=== PATIENT | male | born 1955 | race Caucasian/White ===

== ENCOUNTER 2018-08-05 14:35 | Emergency (ER) | payer OTHER ==
[~2018-08-05] VITALS: Ht 175.3 cm; Wt 56.8 kg
[2018-08-05 16:17] LABS: BASO # 0.1 10^3/uL (0.0-0.2); BASO % 1.1 % (0.0-1.0); EOS # 0.2 10^3/uL (0.0-0.50); HEMATOCRIT 39.2 % (42.0-52.0); HEMOGLOBIN 12.5 g/dl (13.5-17.5); LYMPH # 1.3 10^3/uL (1.5-4.5); LYMPH % 16.5 % (24.0-44.0); MEAN CORPUSCULAR HEMOGLOBIN 29.8 pg (27.0-33.0); MEAN CORPUSCULAR HGB CONC 31.9 g/dl (32.0-36.5); MEAN CORPUSCULAR VOLUME 93.3 fl (80.0-96.0); MONO # 0.7 10^3/uL (0.0-0.8); MONO % 9.4 % (0.0-5.0); NEUTROPHILS # 5.5 10^3/uL (1.8-7.7); NEUTROPHILS % 69.7 % (36.0-66.0); PLATELET COUNT, AUTOMATED 241 10^3/uL (150-450); WHITE BLOOD COUNT 7.9 10^3/uL (4.0-10.0)
[2018-08-05 16:29] LABS: INR 0.96; PROTHROMBIN TIME 12.9 SECONDS (12.1-14.4)
[2018-08-05 16:30] LABS: PARTIAL THROMBOPLASTIN TIME 28.6 SECONDS (25.4-37.6)
[2018-08-05 16:51] LABS: ALBUMIN 3.7 GM/DL (3.2-5.2); ALT/SGPT 21 U/L (12-78); BILIRUBIN,DIRECT 0.1 MG/DL (0.0-0.2); BILIRUBIN,TOTAL 0.4 MG/DL (0.2-1.0); BLOOD UREA NITROGEN 26 MG/DL (7-18); CALCIUM LEVEL 8.7 MG/DL (8.8-10.2); CARBON DIOXIDE LEVEL 26 MEQ/L (21-32); CHLORIDE LEVEL 110 MEQ/L (98-107); GLOMERULAR FILTRATION RATE > 60.0 (>49); GLUCOSE, FASTING 80 MG/DL (70-100); MAGNESIUM LEVEL 2.2 MG/DL (1.8-2.4); POTASSIUM SERUM 4.5 MEQ/L (3.5-5.1); SODIUM LEVEL 142 MEQ/L (136-145); TOTAL PROTEIN 6.9 GM/DL (6.4-8.2)
[2018-08-05 17:42] LABS: FREE T4 1.02 NG/DL (0.76-1.46)
[2018-08-05 18:21] VITALS: BP 110/69
--- NOTE | 2018-08-06 06:35 | ECGEPIP ---
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
== END 2018-08-05 18:24 | disposition home or self-care (01) ==
LOC: M ED 14:35
DX: I49.3 Ventricular premature depolarization (principal); R21 Rash and other nonspecific skin eruption

== ENCOUNTER → 2018-09-01 | Outpatient (REF) | payer OTHER ==
[2018-09-02 12:14] LABS: GAMMA GLUTAMYLTRANSPEPTIDASE 37 U/L (15-85)
[2018-09-03 12:05] LABS: HEPATITIS B SURFACE ANTIBODY NEGATIVE (POSITIVE)
[2018-09-03 12:16] LABS: HEPATITIS B SURFACE ANTIGEN NEGATIVE (NEGATIVE)
== END ==
LOC: M SFHCCLAY 15:35
PROVIDERS: ATTEND Family Medicine
DX: K74.60 Unspecified cirrhosis of liver (principal)

== ENCOUNTER → 2019-09-12 | Outpatient (CLI) | payer OTHER, MEDICAID ==
[2019-09-12 19:38] LABS: BASO # 0.1 10^3/uL (0.0-0.2); EOS # 0.2 10^3/uL (0.0-0.5); EOS % 2.4 % (0.0-3.0); HEMATOCRIT 41.1 % (42.0-52.0); LYMPH # 1.6 10^3/uL (1.5-5.0); LYMPH % 26.2 % (24.0-44.0); MEAN CORPUSCULAR HEMOGLOBIN 30.1 pg (27.0-33.0); MEAN CORPUSCULAR HGB CONC 31.6 g/dl (32.0-36.5); MEAN CORPUSCULAR VOLUME 95.1 fl (80.0-96.0); MONO # 0.8 10^3/uL (0.0-0.8); MONO % 12.4 % (0.0-5.0); NEUTROPHILS # 3.5 10^3/uL (1.5-8.5); NEUTROPHILS % 56.9 % (36.0-66.0); PLATELET COUNT, AUTOMATED 246 10^3/uL (150-450); RED BLOOD COUNT 4.32 10^6/uL (4.30-6.10); WHITE BLOOD COUNT 6.2 10^3/uL (4.0-10.0)
[2019-09-12 20:12] LABS: ALBUMIN 3.8 GM/DL (3.2-5.2); ALT/SGPT 27 U/L (12-78); BILIRUBIN,TOTAL 0.4 MG/DL (0.2-1.0); BLOOD UREA NITROGEN 26 MG/DL (7-18); CALCIUM LEVEL 9.2 MG/DL (8.8-10.2); CARBON DIOXIDE LEVEL 27 MEQ/L (21-32); CHLORIDE LEVEL 107 MEQ/L (98-107); CREATININE FOR GFR 1.14 MG/DL (0.70-1.30); GLOMERULAR FILTRATION RATE > 60.0 (>49); GLUCOSE, FASTING 69 MG/DL (70-100); POTASSIUM SERUM 4.3 MEQ/L (3.5-5.1); SODIUM LEVEL 142 MEQ/L (136-145); TOTAL PROTEIN 7.3 GM/DL (6.4-8.2)
[2019-09-12 20:13] LABS: RHEUMATOID FACTOR QUANT < 10.0 IU/ML (<15.0)
[2019-09-14 14:06] LABS: ANTINUCLEAR ANTIBODIES DIRECT Negative (Negative)
== END ==
LOC: M LAB 16:44
PROVIDERS: ATTEND Internal Medicine Cardiovascular Disease
DX: I31.3 Pericardial effusion (noninflammatory) (principal)

== ENCOUNTER → 2020-01-12 | Outpatient (CLI) | payer OTHER ==
--- NOTE | 2020-02-08 10:02 | REP ---
NONCONTRAST CHEST CT CLINICAL: Follow-up abnormal lung findings. COMPARISON: 09/14/2019. FINDINGS: Advanced COPD/emphysematous changes with scattered scarring and bronchiectasis is again appreciated. Findings include chronic presumed scarring at the bilateral apices with linear band-like elements of soft tissue having central calcifications and surrounding spiculated fibrosis. There is a new 14 mm soft tissue density lesion along the anterior right upper lobe with spiculated margins (Image 22), which represents an obvious change from prior examination. No further new areas of consolidation, nodule, or mass lesion are appreciated. No effusion or pneumothorax. Mediastinal and hilar adenopathy including lymph nodes measuring up to approximately 12 mm short axis diameter are similar to prior examination. Further evaluation of the mediastinum demonstrates atherosclerotic changes to the thoracic aorta and coronary arteries along with small stable pericardial effusion. No cardiomegaly. Musculoskeletal structures demonstrate age-related changes without acute osseous abnormality. IMPRESSION: * New 14 mm soft tissue lesion along the anterior right upper lobe with spiculated margins. PET CT is recommended for further investigation, as well as possible biopsy. * Underlying advanced chronic emphysematous changes with bronchiectasis and scarring including band-like biapical scarring is again noted and is relatively stable. MTDD
== END ==
LOC: M RAD 14:54
PROVIDERS: ATTEND Internal Medicine Pulmonary Disease
DX: R91.8 Other nonspecific abnormal finding of lung field (principal)

== ENCOUNTER → 2020-02-07 | Outpatient (CLI) | payer OTHER ==
--- NOTE | 2020-02-14 15:10 | REP ---
PET CT HISTORY: Abnormal lung field findings. Solitary pulmonary nodule. COMPARISON: Chest CT study 01/12/2020 showed a new 14-mm nodular density in the anterior aspect of the right upper lobe. Chest CT study is also reviewed from 09/14/2019. TECHNIQUE: 49 minutes following the intravenous injection of an 8.18 mCi dose of F18 fluorodeoxyglucose (FDG), three-dimensional PET CT imaging is acquired from the skull base to the proximal thighs. PET CT FINDINGS: Head and neck soft tissues are unremarkable. There is no hypermetabolic focus within the chest. The recently identified right upper lobe nodular opacity appears smaller than on the recent prior chest CT. Maximum standard uptake value within this is 1.75. There is equivocal nodule uptake in the right hilus without evidence of adenopathy. There is a new tiny nodular opacity with some adjacent inflammatory change in the right lower lobe, maximum standard uptake value 1.15, again not hypermetabolic. The band-like area of pleural parenchymal fibrosis in the right apex does not show hypermetabolic uptake. In the abdomen and pelvis, normal hepatic, splenic, gastrointestinal, and genitourinary FDG accumulation is seen. A moderate pericardial effusion is noted incidentally without associated hypermetabolic uptake. No abnormal hypermetabolic uptake is seen in the abdomen or pelvis. IMPRESSION: Advanced chronic obstructive pulmonary disease (COPD). No hypermetabolic uptake is seen in any focus within the chest. The recently identified right upper lobe focus is a little flatter in morphology and less nodular. There is a small focus of inflammatory uptake in the right lower lobe today. Not hypermetabolic. There is a moderate pericardial effusion again noted unchanged. No suspicious hypermetabolic uptake. MTDD
== END ==
LOC: M PLARAD 08:21
PROVIDERS: ATTEND Internal Medicine Pulmonary Disease
DX: R91.1 Solitary pulmonary nodule (principal); J44.9 Chronic obstructive pulmonary disease, unspecified
CPT/HCPCS: 78815; A9552

== ENCOUNTER → 2020-05-17 | Outpatient (CLI) | payer MEDICARE, OTHER ==
--- NOTE | 2020-05-18 07:52 | REP ---
INDICATION: SOLITARY PULMONARY NODULE COMPARISON: 01/12/2020 TECHNIQUE: Axial noncontrast images from the thoracic inlet to the upper abdomen with coronal and sagittal reformations. This CT examination was performed using the following dose reduction techniques: Automated exposure control, adjustment of mA and/or kv according to the patient's size, and use of iterative reconstruction technique. FINDINGS: Advanced COPD/emphysematous changes with biapical and scattered scarring again noted. The previously identified 14 mm nodule with surrounding spiculation has improved/decreased in size and now demonstrates small residual area of stellate scarring. No new consolidation, suspicious nodule or mass lesion appreciated. No pleural effusion. No pneumothorax. Further evaluation of the mediastinum demonstrates stable atherosclerotic changes to the thoracic aorta and coronary arteries without cardiomegaly. Small stable pericardial effusion again noted along the dependent portion of the mediastinum. No significant adenopathy appreciated. Thyroid gland is relatively normal. Surrounding musculoskeletal structures demonstrate stable degenerative changes. IMPRESSION: 1. Previously identified nodule has regressed/near completely resolved with only small area of residual stellate scarring in its place. 2. Chronic stable advanced COPD/emphysematous changes with scattered scarring. 3. No new acute mediastinal or pleuroparenchymal process appreciated. <Electronically signed by Greg Peace > 05/18/20 [id number]
== END ==
LOC: M RAD 17:41
PROVIDERS: ATTEND Internal Medicine Pulmonary Disease
DX: R91.1 Solitary pulmonary nodule (principal); J44.9 Chronic obstructive pulmonary disease, unspecified

== ENCOUNTER → 2020-07-11 | Outpatient (CLI) | payer MEDICARE, OTHER ==
[2020-07-11 12:06] LABS: PROTHROMBIN TIME 13.4 SECONDS (12.5-14.3)
[2020-07-11 12:26] LABS: FERRITIN 56 NG/ML (26-388); IRON (FE) 84 UG/DL (65-175); PERCENT SATURATION 27.9 % (19.7-50.0); TOTAL IRON BINDING CAPACITY 301 UG/DL (250-450)
[2020-07-11 12:45] LABS: HEPATITIS B SURFACE ANTIGEN NEGATIVE (NEGATIVE)
[2020-07-11 13:13] LABS: HEPATITIS C VIRUS ABY INDEX < 0.0 INDEX (<0.8)
[2020-07-11 13:15] LABS: HEPATITIS A ANTIBODY IGM NEGATIVE (NEGATIVE)
== END ==
LOC: M LAB 09:12
PROVIDERS: ATTEND Internal Medicine Gastroenterology
DX: K76.9 Liver disease, unspecified (principal)

== ENCOUNTER 2020-12-02 11:08 | Inpatient (IN) | payer MEDICARE, OTHER ==
[~2020-12-02] VITALS: Ht 175.3 cm; Wt 50.6 kg
[2020-12-02] MEDS ORDERED: ASPI81CH33 PO (11:19)
[2020-12-02] MEDS ORDERED: BREO1INH3 PO (11:19)
[2020-12-02] MEDS ORDERED: HYDR12.55 PO (11:19)
[2020-12-02] MEDS ORDERED: ALBU8.5H INH (11:19)
--- NOTE | 2020-12-02 13:02 | REP ---
INDICATION: DYSPNEA/COUGH. COMPARISON: Comparison chest x-ray May 19, 2012. TECHNIQUE: Portable upright AP chest radiograph. FINDINGS: Lungs overall are hyperinflated. There is a new finding of a pneumothorax on the right in a approximately 10-15%. Some of the pneumothorax is in the sub pulmonic configuration. There are emphysematous changes in the upper lobes and there is some linear fibrosis in the upper lobes bilaterally. The heart is not enlarged. There is slight shift of the mediastinum to the left. A dextroconvex curve is noted in the thoracic spine.. IMPRESSION: Small right-sided pneumothorax. Slight shift of the mediastinum to the left. Evidence of COPD.. Critical Findings: Small right-sided pneumothorax The critical information above was relayed directly by me by telephone to RHODA SAHNI on 12/02/2020 at 12:53 pm with readback verification. <Electronically signed by Elian Ac > 12/02/20 [id number]
[2020-12-02 13:16] LABS: BASO # 0.1 10^3/uL (0.0-0.2); EOS # 0.3 10^3/uL (0.0-0.5); EOS % 2.5 % (0.0-3.0); HEMATOCRIT 44.8 % (42.0-52.0); HEMOGLOBIN 14.5 g/dl (13.5-17.5); LYMPH # 1.5 10^3/uL (1.5-5.0); LYMPH % 15.2 % (24.0-44.0); MEAN CORPUSCULAR HEMOGLOBIN 30.9 pg (27.0-33.0); MEAN CORPUSCULAR HGB CONC 32.4 g/dl (32.0-36.5); MEAN CORPUSCULAR VOLUME 95.5 fl (80.0-96.0); MONO % 9.4 % (2.0-8.0); NEUTROPHILS # 7.2 10^3/uL (1.5-8.5); NEUTROPHILS % 71.2 % (36.0-66.0); PLATELET COUNT, AUTOMATED 392 10^3/uL (150-450); RED BLOOD COUNT 4.69 10^6/uL (4.30-6.10); WHITE BLOOD COUNT 10.1 10^3/uL (4.0-10.0)
[2020-12-02 13:55] LABS: ALBUMIN 3.8 GM/DL (3.2-5.2); ALT/SGPT 25 U/L (12-78); BILIRUBIN,DIRECT 0.1 MG/DL (0.0-0.2); BILIRUBIN,TOTAL 0.6 MG/DL (0.2-1.0); BLOOD UREA NITROGEN 36 MG/DL (7-18); CALCIUM LEVEL 9.7 MG/DL (8.8-10.2); CARBON DIOXIDE LEVEL 27 MEQ/L (21-32); CHLORIDE LEVEL 104 MEQ/L (98-107); CK-MB VALUE MASS 3.4 NG/ML (<3.6); CPK CREATINE PHOSPHOKINASE 81 U/L (39-308); CREATININE FOR GFR 1.27 MG/DL (0.70-1.30); GLOMERULAR FILTRATION RATE > 60.0 (>49); GLUCOSE, FASTING 96 MG/DL (70-100); POTASSIUM SERUM 5.4 MEQ/L (3.5-5.1); SODIUM LEVEL 138 MEQ/L (136-145); TOTAL PROTEIN 7.7 GM/DL (6.4-8.2); TROPONIN I < 0.02 NG/ML (< 0.10)
[2020-12-02] MEDS ORDERED: ARNU1INH3 INH (14:31)
[2020-12-02] MEDS ORDERED: STIO1AER INH (14:31)
[2020-12-02] MEDS ORDERED: ACETAMINOPHEN TAB 650MG DOSE (2X325MG) PO PRN (15:15)
--- NOTE | 2020-12-02 15:16 | HPEPDOC ---
General Date of Admission 12/02/20 Date of Service: Dec 02, 2020 Chief Complaint The patient is a 65-year-old male admitted with a reason for visit of Weakness/Short Of Breath. Source: Patient Exam Limitations: No limitations History of Present Illness Patient is 65 years old male with past medical history of COPD, long history of smoking quit 34 years ago presented to hospital with increased shortness of breath. Patient stated that for the past 2 weeks he has been having increased shortness of breath but denied any chest pain, palpitations fever or chills. He stated that shortness of breath became progressively worse especially when he walk. In ER patient was found to have white blood count of 10.1, potassium 5.4. Chest x-ray showed Small right-sided pneumothorax. Slight shift of the mediastinum to the left.. Dr. Laura consulted patient and he recommended high flow oxygen and admit for observation Home Medications Scheduled Aspirin (Aspirin) 81 Mg Tab.chew, 81 MG PO DAILY, (Reported) Fluticasone/Vilanterol (Breo Ellipta 200-25 Mcg INH) 1 Each Blst.w.dev, 1 PUFF INH DAILY, (Reported) Hydrochlorothiazide (Hydrochlorothiazide) 25 Mg Tablet, 12.5 MG PO DAILY, (Reported) Scheduled PRN Albuterol Sulfate (Albuterol Sulfate Hfa) 8.5 Gm Hfa.aer.ad, 2 PUFFS INH for SHORTNESS OF BREATH, (Reported) Allergies Coded Allergies: No Known Drug Allergies (Verified Allergy, Unknown, 08/05/18) Past Medical History Medical History COPD, hypertension Family History I personally reviewed family history and found not pertinent Social History * Smoker: former Smoker Alcohol: Denies Drugs: denies A-FIB/CHADSVASC A-FIB History Current/History of A-Fib/PAF?: No Current PO Anticoag Therapy: No Review of Systems Constitutional: Denies: Chills, Fever Eyes: Denies: Pain ENT: Denies: Head Aches Skin: Denies: Rash Pulmonary: Reports: Dyspnea Cardiovascular: Denies: Chest Pain Gastrointestinal: Denies: Nausea Genitourinary: Denies: Dysuria Hematologic: Denies: Bruising Endocrine: Denies: Polydipsia Musculoskeletal: Denies: Neck Pain Neurological: Denies: Weakness Psych: Reports: Mood Normal Physical Examination General Exam: Positive: Alert, Cooperative Eye Exam: Positive: PERRLA ENT Exam: Positive: Atraumatic Neck Exam: Positive: Supple; Negative: JVD Chest Exam: Positive: Diminished Heart Exam: Positive: Rate Normal Telemetry: Positive: No significant arrhythmia Abdomen Exam: Positive: Normal bowel sounds Extremity Exam: Negative: Clubbing Skin Exam: Positive: Nl turgor and temperature Neuro Exam: Positive: Normal Gait Psych Exam: Positive: Mental status NL Vital Signs Vital Signs Date Time Temp Pulse Resp B/P (MAP) Pulse Ox O2 Delivery O2 Flow Rate FiO2 12/02/20 14:15 88 18 104/73 (83) 100 Non-Rebreather 15.0 12/02/20 11:11 97.3 Laboratory Data Labs 24H Laboratory Tests 2 12/02/20 12:58: Immature Granulocyte % (Auto) 0.7, Neutrophils (%) (Auto) 71.2H, Lymphocytes (%) (Auto) 15.2L, Monocytes (%) (Auto) 9.4H, Eosinophils (%) (Auto) 2.5, Basophils (%) (Auto) 1.0, Neutrophils # (Auto) 7.2, Lymphocytes # (Auto) 1.5, Monocytes # (Auto) 1.0H, Eosinophils # (Auto) 0.3, Basophils # (Auto) 0.1, Nucleated Red Blood Cells % (auto) 0.0, Anion Gap 7L, Glomerular Filtration Rate > 60.0, Calcium Level 9.7, Total Bilirubin 0.6, Direct Bilirubin 0.1, Aspartate Amino Transf (AST/SGOT) 24, Alanine Aminotransferase (ALT/SGPT) 25, Alkaline Phosphatase 118H, Total Creatine Kinase 81, Creatine Kinase MB 3.4, Creatine Kinase MB Relative Index 4.20H, Troponin I < 0.02, Total Protein 7.7, Albumin 3.8, Albumin/Globulin Ratio 1.0 12/02/20 13:14: POC Troponin I (Misc) 0.02 12/02/20 13:31: POC pH (Misc Panel) 7.424, POC Base Excess (Misc Panel) 2.0, POC Saturated Percent O2 (Misc) 100H, POC pO2 (Misc Panel) 334.0H, POC pCO2 (Misc Panel) 39.8, POC HCO3 (Misc Panel) 26.1H, POC Total CO2 (Misc Panel) 27.0 12/02/20 14:36: CBC/BMP Laboratory Tests 12/02/20 12:58 Assessment/Plan Patient is 65 years old male with past medical history of COPD, long history of smoking quit 34 years ago presented to hospital with increased shortness of breath. Patient stated that for the past 2 weeks he has been having increased shortness of breath but denied any chest pain, palpitations fever or chills. He stated that shortness of breath became progressively worse especially when he walk. In ER patient was found to have white blood count of 10.1, potassium 5.4. Chest x-ray showed Small right-sided pneumothorax. Slight shift of the mediastinum to the left.. Dr. Laura consulted patient and he recommended high flow oxygen and admit for observation Problems (1) Spontaneous pneumothorax Status: Acute Problem Text: Most likely secondary to his COPD Dr. Laura recommended to continue high flow oxygen and repeat chest x-ray tonight and in the morning (2) COPD (chronic obstructive pulmonary disease) Problem Text: Not in acute exacerbation Continue inhalers (3) Hyperkalemia Status: Acute Problem Text: Insulin 10 units IV with D50 Plan / VTE VTE Prophylaxis Ordered?: No VTE Exclusion Mechanical Proph: Low Risk for VTE JOSE ARMANDO SHAW DO Dec 02, 2020 15:16
[2020-12-02] MEDS ORDERED: BREO1INH3 INH (15:19)
[2020-12-02] MEDS ORDERED: HYDR-3490 PO (15:19)
[2020-12-02] MEDS ORDERED: DEXTROSE 50% 50 ML SYRINGE IV STA (15:21)
[2020-12-02] MEDS ORDERED: HumuLIN R (REGULAR) INSULIN (NovoLIN R) **100U/ML** PER UNIT IV STA (15:21)
[2020-12-02 15:45] LABS: RSV AMPLIFICATION NEGATIVE (NEGATIVE)
[2020-12-02] MEDS ORDERED: SODIUM CHLORIDE 0.9% 1000ML IV SCH (16:00)
[2020-12-02 16:51] VITALS: BP 129/79
--- NOTE | 2020-12-02 16:52 | CCN ---
CRITICAL CARE NOTE DATE: 12/02/2020 SUBJECTIVE: I was called to the emergency department to evaluate this 65-year-old male in light of pneumothorax. The patient presented with weakness and progressive dyspnea over the past few days. He recalls no recent falls or trauma. He is not experiencing chest pain at this point. He has recently suffered severe trauma with multiple bone fractures in August of this year, having been run over by a tractor. This resulted in a prolonged hospital stay at [facility] and even more prolonged recovery with rehabilitation. He has only just recently been able to participate in his usual activities of daily living. His past medical history includes advanced obstructive sleep airways disease secondary to 100 pack year cigarette smoking. He has had FEV-1 of 1.87 liters with severe diffusion impairment. He also suffers from cirrhosis, etiology unclear and there and was a history of atrial fibrillation, pericardial and pleural effusions requiring drainage in the past. OBJECTIVE: Vital signs: At bedside he is ill-appearing and cachectic. His temperature is 97.3, pulse rate 107, respirations 18, blood pressure 106/69. HEENT: His oral and nasal mucosa are pink. Neck: Supple there is no obvious jugular venous distention, No tracheal deviation, no adenopathy. Heart: Heart sounds are regular, distant. No appreciable murmurs, No clicks, no rubs. Breath sounds are diminished globally and the expiratory phase is prolonged. The diminution is greater over the right hemithorax than the left. There is hyperresonance to percussion bilaterally. Diaphragm motion is difficult to assess. Abdomen: Soft, sunken with intact bowel sounds. Extremities: Show muscle wasting. DIAGNOSTIC STUDIES: Chest x-ray shows hyperinflation and a small the loculated right pleural effusion. His white cell count is 10.1. Hemoglobin is 14.5, hematocrit 44.8, platelet count 392,000. Differential: White cell count shows 71.2% neutrophils. Electrolytes: Sodium 138, potassium 5.4, chloride 104, CO2 27, BUN 36, creatinine 1.27. Glucose 96. His bilirubin is 0.6, AST 24, ALT 25, alk phos 118. His albumin is 3.8. Arterial blood gases showed a pH of 7.42, pCO2 of 39, pO2 of 100 on a nonrebreather mask. Additional workup is underway for his presenting complaints by the ER physicians. ASSESSMENT AND PLAN: The primary problem requiring critical attention is right pneumothorax, likely a spontaneous event given advanced emphysema on a previous CT. Oxygen administration will enhance reabsorption of the pleural air and I would recommend repeating a chest x-ray at 6 p.m. and in the morning. Advanced obstructive airways disease. The patient had been taking longacting beta agonists, longacting anticholinergic and an inhaled steroid. I would recommend continuing them on admission. I will follow up x-rays and if the pleural air increases, thoracostomy will be necessary. I have reviewed the case with the emergency department attending who is planning to complete workup and contact the hospitalist for admission. 67 minutes was spent in the provision of bedside critical care and coordination and exclusive of any time for the performance of procedures.
--- NOTE | 2020-12-02 18:58 | REPVR ---
PROCEDURE INFORMATION: Exam: XR Chest Exam date and time: 12/02/2020 6:17 PM Age: 65 years old Clinical indication: Other: Pneumothorax; Additional info: Right ptx TECHNIQUE: Imaging protocol: XR of the chest. Views: 1 view. COMPARISON: TN PORTABLE CHEST X-RAY 12/02/2020 12:40 PM FINDINGS: Lungs: Well inflated lungs with flattened diaphragmatic contours and increased retrosternal airspace consistent with COPD. Bullous emphysematous changes demonstrated bilaterally. Pleural spaces: Small to moderate right pneumothorax ranging in size from 10-15%. Findings grossly stable in comparison to the prior study obtained at 12:41 p.m. EST. Heart/Mediastinum: Unremarkable. No cardiomegaly. Bones/joints: Shallow dextroscoliosis. Osteoporosis. IMPRESSION: 1. COPD. 2. Small to moderate right pneumothorax ranging in size from 10-15%. Findings grossly stable in comparison to the prior study obtained at 12:41 p.m. EST. 3. Bullous emphysematous changes demonstrated bilaterally. Electronically signed by: Ezequiel Anderson On 12/02/2020 18:57:54 PM
[2020-12-02] MEDS: COMBIVENT RESPIMAT 100-20MCG INHALER 4GM INH SCH (20:07)
[2020-12-02] MEDS: ADVAIR HFA 115/21MCG INHALER INH SCH (20:08)
[2020-12-02 22:00] VITALS: BP 100/68
--- NOTE | 2020-12-02 22:13 | REPVR ---
PROCEDURE INFORMATION: Exam: XR Chest Exam date and time: 12/02/2020 10:08 PM Age: 65 years old Clinical indication: Condition or disease; Lung condition and disease; Pneumothorax; Spontaneous TECHNIQUE: Imaging protocol: XR of the chest. Views: 2 views. COMPARISON: CR PORTABLE CHEST X-RAY 12/02/2020 6:13 PM FINDINGS: Lungs: Well inflated lungs with flattened diaphragmatic contours and increased retrosternal airspace consistent with COPD. Bilateral post emphysematous changes. Pleural spaces: Stable appearance of a small to moderate right-sided pneumothorax estimated at approximately 15%. Heart/Mediastinum: Unremarkable. No cardiomegaly. Bones/joints: Unremarkable. IMPRESSION: 1. Stable appearance of a small to moderate right-sided pneumothorax estimated at approximately 15%. 2. COPD. 3. Bilateral post emphysematous changes. Electronically signed by: Ezequiel Anderson On 12/02/2020 22:12:34 PM
[2020-12-03] MEDS: COMBIVENT RESPIMAT 100-20MCG INHALER 4GM INH SCH ×4 (01:52→20:16)
[2020-12-03 06:19] VITALS: BP 101/68
[2020-12-03 06:35] LABS: HEMATOCRIT 38.9 % (42.0-52.0); HEMOGLOBIN 12.6 g/dl (13.5-17.5); MEAN CORPUSCULAR HEMOGLOBIN 31.2 pg (27.0-33.0); MEAN CORPUSCULAR HGB CONC 32.4 g/dl (32.0-36.5); MEAN CORPUSCULAR VOLUME 96.3 fl (80.0-96.0); PLATELET COUNT, AUTOMATED 324 10^3/uL (150-450); RED BLOOD COUNT 4.04 10^6/uL (4.30-6.10); WHITE BLOOD COUNT 9.2 10^3/uL (4.0-10.0)
[2020-12-03 06:53] LABS: ALBUMIN 3.1 GM/DL (3.2-5.2); ALT/SGPT 20 U/L (12-78); BILIRUBIN,TOTAL 0.5 MG/DL (0.2-1.0); BLOOD UREA NITROGEN 34 MG/DL (7-18); CALCIUM LEVEL 8.9 MG/DL (8.8-10.2); CARBON DIOXIDE LEVEL 24 MEQ/L (21-32); CHLORIDE LEVEL 107 MEQ/L (98-107); CREATININE FOR GFR 1.11 MG/DL (0.70-1.30); GLOMERULAR FILTRATION RATE > 60.0 (>49); GLUCOSE, FASTING 88 MG/DL (70-100); MAGNESIUM LEVEL 2.1 MG/DL (1.8-2.4); POTASSIUM SERUM 4.4 MEQ/L (3.5-5.1); SODIUM LEVEL 141 MEQ/L (136-145); TOTAL PROTEIN 6.6 GM/DL (6.4-8.2)
[2020-12-03] MEDS: ADVAIR HFA 115/21MCG INHALER INH SCH ×2 (07:51→20:15)
--- NOTE | 2020-12-03 08:15 | REP ---
INDICATION: right ptx. COMPARISON: Multiple studies 12/02/2020 TECHNIQUE: AP portable semi erect, 2 images FINDINGS: Lungs hyperinflated COPD, bullous emphysematous changes and some fibrotic change bilaterally. Right-sided hydropneumothorax present. The apical air gap measuring about 618 mm, previously 22 mm at the same point last evening. Same or trace smaller sub pulmonic component. The air-fluid level from the hydropneumothorax is decreased on this I do not see a significant midline shift. Cardiomediastinal silhouette, aortic arch and airway grossly intact. Degenerative changes in the spine shoulders noted. Frontal view IMPRESSION: 1. Right-sided hydropneumothorax, likely trace smaller amount of pleural air and a smaller air-fluid level at the right lateral base from this hydropneumothorax. 2. COPD and advanced bullous emphysematous changes with fibrosis. <Electronically signed by Rk Reis > 12/03/20 [id number]
[2020-12-03] MEDS: hydroCHLOROthiazide 12.5 MG CAPSULE PO SCH (09:55)
[2020-12-03] MEDS: ASPIRIN 81 MG CHEW TABLET PO SCH (09:55)
--- NOTE | 2020-12-03 12:25 | CCN ---
CRITICAL CARE NOTE DATE: 12/03/2020 SUBJECTIVE: This is hospital day #2. Patient is a 65-year-old male who presented due to progressive lower extremity weakness and was found to have a spontaneous right-sided pneumothorax on 12/02/2020. She was subsequently admitted and the critical care team was consulted. Patient was found to have a moderate size right-sided pneumothorax without severe work of breathing. Patient denied chest pain on admission. Patient reported a tractor accident in August 2020 this year that resulted in a hospital stay with prolonged rehabilitation. Patient denied any chest trauma at the time. Patient reported multiple bone fractures that were limited to his lower extremities. Today, patient reports that he is doing better. He denies any shortness of breath at this time. Patient is on a 15 liter nonrebreather mask. Patient reports good appetite and is keen to go home. OBJECTIVE: VITAL SIGNS: Temperature 98.1, pulse 102, respiratory rate 18, blood pressure 101/68, oxygen 100 on 15 liter nonrebreather. GENERAL: Patient is sitting upright in bed in no acute distress with good oxygen saturation. However, during the medical interview, his oxygen saturation decreased to 83%, which quickly corrected to 100 when he stopped talking. HEENT: Nares patent. Oral mucosa pink and moist. NECK: No jugular venous distention (JVD) appreciated. No tracheal deviation appreciated. No adenopathy. HEART: Heart sounds are regular; however, distant. No murmurs, rubs or gallops appreciated. LUNGS: Breath sounds are diminished throughout with a prolonged expiratory phase. There is hyperresonance to percussion bilaterally. Pleural sounds appreciated at right lower lung base. ABDOMEN: Soft. Bowel sounds appreciated. EXTREMITIES: Mild muscle wasting appreciated. IMAGING: Chest x-ray from 12/03/2020 at 06:55 a.m.: Right-sided pneumothorax appreciated that is likely trace smaller amount of pleural air as compared to 12/02/2020. Chronic obstructive pulmonary disease (COPD) and advanced bullous emphysema appreciated with fibrosis. LABORATORY DATA: White blood cell count 9.2, red blood cell count 4.04, hemoglobin 12.6, hematocrit 38.9, MCV 96.3, MCH 31.2, MCHC 32.4, RDW 14.4, platelet count 324. Sodium 141, potassium 4.4, chloride 107, bicarbonate 24, anion gap 10, BUN 34, creatinine 1.11, GFR greater than 60, fasting glucose 88, calcium 8.9, magnesium 2.1. Total bilirubin 0.5, alkaline phosphatase 103, albumin 3.1. ASSESSMENT AND PLAN: Critical care has been consulted due to right pneumothorax. Patient is doing well today. Oxygen administration had enhanced reabsorption of the pleural air and we will continue to administer 15 liters nonrebreather oxygen at this time. Consider keeping patient for an extra day to continue oxygen therapy and threshold is high to insert a chest tube due to patient's advanced emphysematous disease and emphysematous blebbing. Patient has advanced obstructive airways disease for which fluticasone/salmeterol, albuterol/l ipratropium should be continued. Patient has been taking long-acting beta-agonists, long-acting cholinergics and inhaled steroids. These are being continued. Consider continuing followup x-rays and, if the pleural air increased, thoracostomy will have to be considered. However, patient is doing well at this time and there is no increased work of breathing. Therefore, medical decision-making will occur tomorrow unless patient is unstable. My faculty preceptor for this encounter was physically present for the encounter and was fully available. All aspects of the patient interview, examination, medical decision making process and medical care plan development were reviewed and approved by the faculty preceptor. The faculty preceptor is aware and concurs with the plan as stated in the body of this note and will attest to such by his co-signature. Dr. Laura: I saw the patient and participated in the perez components of the evaluation, review and medical decision process. He has very advanced emphysema making placement of a thoracostomy tube a high risk procedure. With supplemental oxygen the pleural gas is being absorbed as evidenced by improvement on imaging. Full reabsorption of the pleural air may take time and given his underlying bleb disease he could always get worse, none the less he does appear to be responding favorably to conservative management and may be able to be discharged tomorrow. Given the long hospitalization he had after trauma earlier this spring he would prefer to be home and he does have a good support system. AKIRA
[2020-12-03 14:00] VITALS: BP 97/67
--- NOTE | 2020-12-03 14:08 | IPNPDOC ---
Text Note Date of Service The patient was seen on 12/03/20. NOTE Subjective: No new acute events overnight. Patient stated that his breathing improved Objective: GENERAL APPEARANCE: Cachectic male HEENT: no scleral icterus, no JVD, EOMI CARDIOVASCULAR: S1S2 LUNGS: CTA ABDOMEN: soft & not tender w palpation MUSCULOSKELETAL: no cyanosis, no swelling INTEGUMENT: no generalized pallor NEUROLOGICAL: cranial nerve function from 2-12 intact i, follows commands, speech not dysarthric Assessment/Plan Patient is 65 years old male with past medical history of COPD, long history of smoking quit 34 years ago presented to hospital with increased shortness of breath. Patient stated that for the past 2 weeks he has been having increased shortness of breath but denied any chest pain, palpitations fever or chills. He stated that shortness of breath became progressively worse especially when he walk. In ER patient was found to have white blood count of 10.1, potassium 5.4. Chest x-ray showed Small right-sided pneumothorax. Slight shift of the mediastinum to the left.. Dr. Laura consulted patient and he recommended high flow oxygen and admit for observation Problems (1) Spontaneous pneumothorax Most likely secondary to his COPD Continue high flow oxygen. Chest x-ray showed slight improvement today Dr. 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
[2020-12-03 15:33] VITALS: BP 94/64
[2020-12-03 16:59] VITALS: BP 96/68
--- NOTE | 2020-12-03 17:04 | REP ---
INDICATION: Pneumothorax. COMPARISON: Comparison chest x-ray December 02, and December 03, 2020 at 6:48 a.m.. TECHNIQUE: Portable chest x-ray time stamped 4 p.m. on this date.. FINDINGS: The previously noted right-sided pneumothorax persists with the both sub pulmonic and apical pleural air. The distribution of the air suggest some pleural adhesions. The amount of right-sided pneumothorax is essentially unchanged from the film done earlier today and the film done the previous evening. There is no visible pleural fluid. No new infiltrate. Overall, the lungs are hyperinflated.. IMPRESSION: Small right-sided pneumothorax persists unchanged.. <Electronically signed by Elian Ac > 12/03/20 [id number]
--- NOTE | 2020-12-03 20:26 | ECGEPIP ---
[facility] - ED Test Date: 2020-12-02 Pat Name: DAINA GEORGE Department: Room: [facility] Gender: Male Administration Professional: ZAUCENA : 1955 Requested By: RHODA BARKER Order Number: [id number] Reading MD: Seema Kelley Measurements Intervals [place] Rate: 80 P: 87 FL: 188 QRS: 105 QRSD: 78 T: 85 QT: 406 QTc: 468 Interpretive Statements Sinus rhythm with occasional premature ventricular complexes Low voltage QRS Anterolateral infarct , age undetermined NSTTW abnormalities similar 07/26/18 Electronically Signed on 12-03-2020 20:26:41 EDT by Seema Kelley
[2020-12-03] MEDS: HEPARIN SOD (PORCINE) 5000UNITS/ML 1ML VIAL/SYRINGE SQ SCH (21:22)
[2020-12-03 22:00] VITALS: BP 99/68
[2020-12-04] MEDS: COMBIVENT RESPIMAT 100-20MCG INHALER 4GM INH SCH ×3 (01:40→13:19)
[2020-12-04 06:43] VITALS: BP 99/60
[2020-12-04] MEDS: hydroCHLOROthiazide 12.5 MG CAPSULE PO SCH (07:27)
[2020-12-04] MEDS: HEPARIN SOD (PORCINE) 5000UNITS/ML 1ML VIAL/SYRINGE SQ SCH (07:47)
[2020-12-04] MEDS: ASPIRIN 81 MG CHEW TABLET PO SCH (07:47)
[2020-12-04 07:49] VITALS: BP 102/70
[2020-12-04] MEDS: ADVAIR HFA 115/21MCG INHALER INH SCH (08:09)
--- NOTE | 2020-12-04 08:36 | REP ---
INDICATION: Pneumothorax. COMPARISON: 12/03/2020, 12/02/2020 TECHNIQUE: AP portable seated (x2) FINDINGS: Previously noted right pneumothorax persists with no change in the apical air gap and with the sub pulmonic pneumothorax component the same or slightly smaller than yesterday. There is no other interval change. IMPRESSION: Right-sided pneumothorax with apical air gap unchanged and with the same or slightly smaller sub pulmonic component of the pneumothorax. No other change. <Electronically signed by Rk Reis > 12/04/20 0855
[2020-12-04] MEDS ORDERED: ADVA115A INH (10:27)
[2020-12-04] MEDS ORDERED: COMBAER6 INH (10:27)
--- NOTE | 2020-12-04 13:41 | DS.PDOC ---
Discharge Summary General Date of Admission Dec 03, 2020 at 10:30 Date of Discharge 12/04/20 Discharge Summary PROCEDURES PERFORMED DURING STAY: [None]. ADMITTING DIAGNOSES: Spontaneous pneumothorax COPD (chronic obstructive pulmonary disease) Hyperkalemia Cachexia DISCHARGE DIAGNOSES: Spontaneous pneumothorax COPD (chronic obstructive pulmonary disease) Hyperkalemia Cachexia COMPLICATIONS/CHIEF COMPLAINT: Spontaneous Pneumothorax. HISTORY OF PRESENT ILLNESS: Patient is 65 years old male with past medical history of COPD, long history of smoking quit 34 years ago presented to hospital with increased shortness of breath. Patient stated that for the past 2 weeks he has been having increased shortness of breath but denied any chest pain, palpitations fever or chills. He stated that shortness of breath became progressively worse especially when he walk. In ER patient was found to have white blood count of 10.1, potassium 5.4. Chest x-ray showed Small right-sided pneumothorax. Slight shift of the mediastinum to the left.. Dr. Laura consulted patient and he recommended high flow oxygen and admit for observation HOSPITAL COURSE: During the hospital stay the following issues were addressed (1) Spontaneous pneumothorax Most likely secondary to his COPD Continue high flow oxygen. 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 ALLERGIES: Please see below. PHYSICAL EXAMINATION ON DISCHARGE: VITAL SIGNS: Please see below. GENERAL APPEARANCE: Cachectic male HEENT: no scleral icterus, no JVD, EOMI CARDIOVASCULAR: S1S2 LUNGS: CTA ABDOMEN: soft & not tender w palpation MUSCULOSKELETAL: no cyanosis, no swelling INTEGUMENT: no generalized pallor NEUROLOGICAL: cranial nerve function from 2-12 intact i, follows commands, spee ch not dysarthric LABORATORY DATA: Please see below. IMAGING: COMPARISON: 12/03/2020, 12/02/2020 TECHNIQUE: AP portable seated (x2) FINDINGS: Previously noted right pneumothorax persists with no change in the apical air gap and with the sub pulmonic pneumothorax component the same or slightly smaller than yesterday. There is no other interval change. IMPRESSION: Right-sided pneumothorax with apical air gap unchanged and with the same or slightly smaller sub pulmonic component of the pneumothorax. No other change. PROGNOSIS: Fair ACTIVITY: [As tolerated]. DIET: Regular DISCHARGE PLAN: Home ITEMS TO FOLLOWUP ON ON OUTPATIENT: Follow-up with PCP and medical oncology physician DISCHARGE CONDITION: [Stable]. TIME SPENT ON DISCHARGE:40minutes. Vital Signs/I&Os Vital Signs Date Time Temp Pulse Resp B/P (MAP) Pulse Ox O2 Delivery O2 Flow Rate FiO2 12/04/20 12:27 94 Room Air 12/04/20 07:49 100 102/70 (81) 12/04/20 06:43 98.2 20 15.0 I&O- Last 24 Hours up to 6 AM 12/04/20 06:00 Intake Total 240 ml Output Total 200 ml Balance 40 ml Discharge Medications Scheduled Aspirin (Aspirin) 81 Mg Tab.chew, 81 MG PO DAILY, (Reported) Fluticasone Propion/Salmeterol (Advair Hfa 115-21 Mcg Inhaler) 12 Gm Hfa.aer.ad, 2 PUFF INH RBID Fluticasone/Vilanterol (Breo Ellipta 200-25 Mcg INH) 1 Each Blst.w.dev, 1 PUFF INH DAILY, (Reported) Hydrochlorothiazide (Hydrochlorothiazide) 25 Mg Tablet, 12.5 MG PO DAILY, (Reported) Ipratropium/Albuterol Sulfate (Combivent Respimat 20-100 Mcg) 4 Gm Mist.inhal, 1 PUFF INH RQ6H Scheduled PRN Albuterol Sulfate (Albuterol Sulfate Hfa) 8.5 Gm Hfa.aer.ad, 2 PUFFS INH for SHORTNESS OF BREATH, (Reported) Allergies Coded Allergies: No Known Drug Allergies (Verified Allergy, Unknown, 08/05/18) JOSE ARMANDO SHAW DO Dec 04, 2020 13:41
[2020-12-04 14:00] VITALS: BP 96/67
== END 2020-12-04 14:52 | disposition home or self-care (01) | DRG 200 ==
LOC: M ED 11:08 → M ED INP 11:09 → ENRESERV 16:00 → M MSPAV 16:58 → OBSVTOIN 12-03 10:30
PROVIDERS: ADMIT Internal Medicine; ATTEND Internal Medicine
DX: J93.83 Other pneumothorax (principal); R64 Cachexia; J44.9 Chronic obstructive pulmonary disease, unspecified; I10 Essential (primary) hypertension; Z87.891 Personal history of nicotine dependence; Z79.82 Long term (current) use of aspirin; Z79.899 Other long term (current) drug therapy; E87.5 Hyperkalemia; Z20.822 Contact with and (suspected) exposure to COVID-19; K74.60 Unspecified cirrhosis of liver; I48.91 Unspecified atrial fibrillation

== ENCOUNTER → 2021-01-03 | Outpatient (CLI) | payer MEDICARE, OTHER ==
[~2021-01-03] MED LIST: ADVA115A INH; ALBU8.5H INH; ARNU1INH3 INH; ASPI81CH33 PO; BREO1INH3 INH; BREO1INH3 PO; COMBAER6 INH; HYDR-3490 PO; HYDR12.55 PO; STIO1AER INH
--- NOTE | 2021-01-03 15:26 | REP ---
INDICATION: SOLITARY PULMONARY NODULE COMPARISON: Multiple latest 05/17/2020 TECHNIQUE: Standard helical technique without intravenous contrast. FINDINGS: The mediastinum and pulmonary filemon appear stable. There is no evidence of a mass or adenopathy. There is no pleural effusion. There is a minimal pericardial effusion status quo.. There is no change in the imaged upper abdomen or imaged osseous structures. Evaluation of the lung ervin shows advanced emphysematous changes status quo. Scattered asymmetric densities are noted status quo. There is heavy biapical pleuroparenchymal scarring with calcific pleural plaquing status quo. Scattered areas of asymmetric pleural thickening again noted status quo. There are no new abnormal nodules, masses, or opacities. IMPRESSION: Stable appearing chronic changes. <Electronically signed by Asif Ramirez > 01/03/21 [id number]
== END ==
LOC: M RAD 14:55
PROVIDERS: ATTEND Physician Assistant
DX: R91.1 Solitary pulmonary nodule (principal)

== ENCOUNTER → 2021-01-11 | Outpatient (CLI) | payer MEDICARE, OTHER | LOC: M LABSMTC 11:17 | PROVIDERS: ATTEND Internal Medicine Cardiovascular Disease | DX: Z01.812 Encounter for preprocedural laboratory examination (principal); I48.91 Unspecified atrial fibrillation; I49.3 Ventricular premature depolarization; I31.3 Pericardial effusion (noninflammatory); R63.4 Abnormal weight loss; R94.31 Abnormal electrocardiogram [ECG] [EKG]; Z20.822 Contact with and (suspected) exposure to COVID-19 ==

== ENCOUNTER 2021-01-13 11:05 | Inpatient (IN) | payer MEDICARE, OTHER ==
[~2021-01-13] VITALS: Ht 175.3 cm; Wt 51.0 kg
[2021-01-13] VITALS (13 sets, daily range): BP systolic 92–121; BP diastolic 59–72
--- NOTE | 2021-01-13 11:56 | REP ---
INDICATION: DYSPNEA/COUGH. COMPARISON: Fall chest, 12/03/2020. TECHNIQUE: Upright AP portable chest image was obtained. FINDINGS: There has been interval increase in size of the right pneumothorax now measuring approximately 49%. There is no significant shift of the mediastinal structures to the left. The left lung is clear. The heart borders and mediastinum are normal. IMPRESSION: Interval increase in size of the right pneumothorax as described. Critical Findings: Enlarging right pneumothorax. The critical information above was relayed directly by me by telephone to Seema Kelley on 01/13/2021 at 11:53 am with readback verification. <Electronically signed by Fortino Adrian > 01/13/21 [id number]
[2021-01-13 12:27] LABS: BASO % 0.9 % (0.0-1.0); EOS % 1.4 % (0.0-3.0); HEMATOCRIT 40.1 % (42.0-52.0); HEMOGLOBIN 13.4 g/dl (13.5-17.5); LYMPH # 1.3 10^3/uL (1.5-5.0); LYMPH % 14.5 % (24.0-44.0); MEAN CORPUSCULAR HEMOGLOBIN 31.6 pg (27.0-33.0); MEAN CORPUSCULAR HGB CONC 33.4 g/dl (32.0-36.5); MEAN CORPUSCULAR VOLUME 94.6 fl (80.0-96.0); MONO % 7.9 % (2.0-8.0); NEUTROPHILS # 6.6 10^3/uL (1.5-8.5); NEUTROPHILS % 74.5 % (36.0-66.0); PLATELET COUNT, AUTOMATED 334 10^3/uL (150-450); RED BLOOD COUNT 4.24 10^6/uL (4.30-6.10); WHITE BLOOD COUNT 8.9 10^3/uL (4.0-10.0)
[2021-01-13 12:28] LABS: BASO # 0.1 10^3/uL (0.0-0.2); EOS # 0.1 10^3/uL (0.0-0.5); MONO # 0.7 10^3/uL (0.0-0.8)
[2021-01-13] MEDS ORDERED: flumazeniL 0.5 MG/5 ML VIAL As Ordered ONE (12:52)
[2021-01-13] MEDS ORDERED: MIDAZOLAM INJ 2MG/2ML VIAL (J2250 PER 1MG) As Ordered ONE ×2 (12:52→12:53)
[2021-01-13] MEDS ORDERED: LIDOCAINE 1% MDV 20ML VIAL As Ordered ONE (12:53)
[2021-01-13 13:12] LABS: ALBUMIN 3.5 GM/DL (3.2-5.2); ALT/SGPT 23 U/L (12-78); BILIRUBIN,DIRECT 0.1 MG/DL (0.0-0.2); BILIRUBIN,TOTAL 0.8 MG/DL (0.2-1.0); BLOOD UREA NITROGEN 27 MG/DL (7-18); CALCIUM LEVEL 9.2 MG/DL (8.8-10.2); CARBON DIOXIDE LEVEL 19 MEQ/L (21-32); CHLORIDE LEVEL 107 MEQ/L (98-107); CK-MB VALUE MASS 7.7 NG/ML (<3.6); CPK CREATINE PHOSPHOKINASE 115 U/L (39-308); CREATININE FOR GFR 1.09 MG/DL (0.70-1.30); GLOMERULAR FILTRATION RATE > 60.0 (>49); GLUCOSE, FASTING 89 MG/DL (70-100); NT-PRO BNP 1310 PG/ML (<125); POTASSIUM SERUM 4.3 MEQ/L (3.5-5.1); SODIUM LEVEL 138 MEQ/L (136-145); THYROXINE (T4) 11.7 UG/DL (4.5-12.0); TROPONIN I < 0.02 NG/ML (< 0.10)
[2021-01-13] MEDS ORDERED: COMBAER6 INH (13:12)
[2021-01-13] MEDS ORDERED: ARNU1INH3 INH (13:12)
[2021-01-13] MEDS ORDERED: HOME MED LIST COMPLETE! XX SCH (13:15)
[2021-01-13] MEDS ORDERED: MIDAZOLAM INJ 2MG/2ML VIAL (J2250 PER 1MG) IV STA ×2 (13:24)
[2021-01-13] MEDS ORDERED: LIDOCAINE 1% MDV 20ML VIAL SC ONE (14:00)
--- NOTE | 2021-01-13 14:34 | REP ---
INDICATION: s/p chest tube. COMPARISON: Portable chest, 01/13/2021, 11:21 a.m. TECHNIQUE: Upright portable chest image was obtained. FINDINGS: There has been interval placement of a large-bore thoracostomy tube on the right. The right lung appears almost completely reinflated with small residual pneumothoraces in the apex and base. The left lung is clear. The heart borders and mediastinum are normal. IMPRESSION: Almost complete reinflation of the right lung following thoracostomy tube placement. <Electronically signed by Fortino Adrian > 01/13/21 2066
[2021-01-13] MEDS ORDERED: MORPHINE 4 MG/ML 1ML VIAL/SYRINGE (J2270) IV PRN (15:55)
[2021-01-13] MEDS ORDERED: COMBIVENT RESPIMAT 100-20MCG INHALER 4GM INH PRN (16:00)
[2021-01-13] MEDS ORDERED: ALBUTEROL 90 MCG/ACT 8GM HFA INHALER INH PRN (16:00)
[2021-01-13] MEDS: ACETAMINOPHEN 500 MG TAB PO SCH ×2 (17:21→20:44)
--- NOTE | 2021-01-13 17:43 | HPEPDOC ---
[facility] Medical History & Physical Date of Admission Jan 13, 2021 Date of Service: Jan 13, 2021 History and Physical CHIEF COMPLAINT: Shortness of breath HISTORY OF PRESENT ILLNESS: 65-year-old male with history of COPD emphysema liver cirrhosis gastric ulcers spontaneous pneumothorax observed from 12/02/2020 to 12/04/2020 calcified pleural plaques moderate pericardial effusion February 2020 presents to emergency room with acute onset of shortness of breath with dyspnea on exertion and able to walk 5 to 10 feet at home which started on Thursday patient denies any fever chills cough nausea vomiting headaches abdominal pain dizziness lightheadedness. He had a prior history of pneumothorax on 12/02/20 and was admitted for observation and evaluated by Dr. Laura who felt that the patient did not require intervention and was subsequently discharged on 12/04/2020. in the ER today patient was found to have a large right-sided pneumothorax thoracic surgeon Dr. Obrien was called and chest tube was placed. EKG was sinus rhythm open anterolateral infarct age undetermined with non-ST-T wave changes. Troponin was negative patient says that he was due to go to [place] for a coronary angiogram on January 16, 2021. 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 PAST MEDICAL HISTORY: Emphysema COPD liver cirrhosis gastric ulcer spontaneous pneumothorax December 02 to December 04 no intervention chest tube done calcific pleural plaques abnormal CT on 02/14/2020 showing moderate pericardial effusion olecranonbursitis abnormal EKG with anterolateral infarct age undetermined PAST SURGICAL HISTORY: Bilateral inguinal hernia repair 2012, traumatic injury requiring repair SOCIAL HISTORY: Smoke a pack a day of cigarettes since age of 10 quit 4 to 5 years ago lives with his girlfriend at home Healthcare proxy is his daughter Vivienne full code denies any active alcohol or recreational drug use quit alcohol years ago 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 REVIEW OF SYSTEMS: 10 point review of systems negative aside from positive findings on HPI HOME MEDICATIONS: Please see below. PHYSICAL EXAMINATION: VITAL SIGNS: See below GENERAL APPEARANCE: No cyanosis no pallor or icterus positive distress with use of respiratory accessory muscles Sitting at 90 degrees at the bedside cachectic with bitemporal wasting HEENT: Right anterior chest wall thoracotomy tube attached to suction no JVD no thyromegaly no cervical lymphadenopathy CARDIOVASCULAR: S1-S2 regular rate rhythm nondisplaced point of maximal impulse no carotid bruits noted no pitting edema bilateral lower extremities LUNGS: Hyperresonant in the right upper and middle lobe right anterior chest thoracotomy tube left lung clear no wheezing ABDOMEN: Positive bowel sounds soft nontender nondistended EXTREMITIES: No cyanosis clubbing or pitting edema LABORATORY DATA: See below. IMAGING: See below MICROBIOLOGY: Please see below. ASSESSMENT: 65-year-old male with history of COPD emphysema liver cirrhosis gastric ulcers spontaneous pneumothorax observed from 12/02/2020 to 12/04/2020 calcified pleural plaques moderate pericardial effusion February 2020 presents to emergency room with acute onset of shortness of breath with dyspnea on exertion and able to walk 5 to 10 feet at home which started on Thursday patient denies any fever chills cough nausea vomiting headaches abdominal pain dizziness lightheadedness. He had a prior history of pneumothorax on 12/02/20 and was admitted for observation and evaluated by Dr. Laura who felt that the patient did not require intervention and was subsequently discharged on 12/04/2020. in the ER today patient was found to have a large right-sided pneumothorax thoracic surgeon Dr. Obrien was called and chest tube was placed. EKG was sinus rhythm open anterolateral infarct age undetermined with non-ST-T wave changes. Troponin was negative patient says that he was due to go to [place] for a coron mel angiogram on January 16, 2021. 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 -Right thoracotomy tube placed by thoracic surgeon Dr. Denis Obrien -Chest tube management per Dr. Obrien -Daily chest x-rays -Supplemental oxygen to keep O2 sat at 88 to 92% -Tylenol for pain and morphine as needed COPD -Resumed on home bronchodilators -Not in acute exacerbation Abnormal EKG with anteroseptal infarct age undetermined -Patient was scheduled to have a coronary angiogram in [place] on January 16, 2021 which will need to be rescheduled -Troponins are negative -Patient is on telemetry, and cardiac markers every 6 hourly will be obtained -Check a two-dimensional echocardiogram Elevated BNP -Avoid nonsteroidal anti-inflammatories in case patient goes into congestive heart failure check 2D echo -2decho Tobacco abuse -Quit smoking 4 to 5 years ago -Over [id number] history of smoking a pack a day since age of 10 Liver cirrhosis -Compensated with no signs of ascites or anasarca -Quit alcohol use many years ago Alcohol abuse -Quit drinking many years ago Gastric ulcers -PCP to refer to gastroenterology for surveillance Calcified pleural plaques on CT chest -Outpatient follow-up with his systems programmer Dr. Couch DVT prophylaxis -Compression stockings Vital Signs Vital Signs Date Time Temp Pulse Resp B/P (MAP) Pulse Ox O2 Delivery O2 Flow Rate FiO2 01/13/21 16:10 96 Room Air 01/13/21 16:01 98.1 99 18 100/62 (75) 2.0 Laboratory Data Labs 24H Laboratory Tests 2 01/13/21 11:37: POC pH (Misc Panel) 7.424, POC Base Excess (Misc Panel) -5.0L, POC Saturated Percent O2 (Misc) 90L, POC pO2 (Misc Panel) 55.0L, POC pCO2 (Misc Panel) 28.9L, POC HCO3 (Misc Panel) 19.0L, POC Total CO2 (Misc Panel) 20.0L 01/13/21 12:13: Immature Granulocyte % (Auto) 0.8, Neutrophils (%) (Auto) 74.5H, Lymphocytes (%) (Auto) 14.5L, Monocytes (%) (Auto) 7.9, Eosinophils (%) (Auto) 1.4, Basophils (%) (Auto) 0.9, Neutrophils # (Auto) 6.6, Lymphocytes # (Auto) 1.3L, Monocytes # (Auto) 0.7, Eosinophils # (Auto) 0.1, Basophils # (Auto) 0.1, Nucleated Red Blood Cells % (auto) 0.0, Anion Gap 12, Glomerular Filtration Rate > 60.0, Lactic Acid Level 1.4, Calcium Level 9.2, Total Bilirubin 0.8, Direct Bilirubin 0.1, Aspartate Amino Transf (AST/SGOT) 21, Alanine Aminotransferase (ALT/SGPT) 23, Alkaline Phosphatase 100, Ammonia < 10, Total Creatine Kinase 115, Creatine Kinase MB 7.7H, Creatine Kinase MB Relative Index 6.70H, Troponin I < 0.02, LL-Dxk-N-Type Natriuretic Peptide 1310H, Total Protein 7.0, Albumin 3.5, Albumin/Globulin Ratio 1.0, Thyroid Stimulating Hormone (TSH) 9.830H, Thyroxine (T4) 11.7 CBC/BMP Laboratory Tests 01/13/21 12:13 Microbiology Microbiology 01/13/21 Respiratory Virus Panel (PCR) ([facility]) - Final, Complete 01/13/21 Blood Culture, Received Pending 01/13/21 Blood Culture, Received Pending Home Medications Scheduled Aspirin (Aspirin) 81 Mg Tab.chew, 81 MG PO DAILY Fluticasone/Vilanterol (Breo Ellipta 200-25 Mcg INH) 1 Each Blst.w.dev, 1 PUFF INH DAILY Hydrochlorothiazide (Hydrochlorothiazide) 25 Mg Tablet, 12.5 MG PO DAILY Scheduled PRN Albuterol Sulfate (Albuterol Sulfate Hfa) 8.5 Gm Hfa.aer.ad, 2 PUFFS INH for SHORTNESS OF BREATH Ipratropium/Albuterol Sulfate (Combivent Respimat 20-100 Mcg) 4 Gm Mist.inhal, 1 PUFF INH QID PRN for SHORTNESS OF BREATH Allergies Coded Allergies: No Known Drug Allergies (Verified Allergy, Unknown, 08/05/18) A-FIB/CHADSVASC A-FIB History Current/History of A-Fib/PAF?: No Current PO Anticoag Therapy: No Age/Risk Factor Scoring CHADSVASC: CHADSVASC Response (Comments) Value Age Risk Factor Age < 65 years old 0 Gender Risk Factor Male 0 Hx of CHF No 0 Hx of HTN No 0 Hx of Stroke/TIA/or VTE No 0 Hx of Diabetes No 0 Hx of Vascular Disease No 0 Total 0 Treatment Treatment ordered: NONE DELMY CHAPPELL MD Jan 13, 2021 17:43
[2021-01-13 19:36] LABS: CK-MB VALUE MASS 9.9 NG/ML (<3.6); CPK CREATINE PHOSPHOKINASE 170 U/L (39-308); MB/CK RELATIVE INDEX 5.82 (< OR =4); TROPONIN I < 0.02 NG/ML (< 0.10)
[2021-01-14] VITALS (8 sets, daily range): BP systolic 90–102; BP diastolic 55–67
[2021-01-14 06:07] LABS: HEMATOCRIT 37.7 % (42.0-52.0); HEMOGLOBIN 12.4 g/dl (13.5-17.5); MEAN CORPUSCULAR HEMOGLOBIN 31.5 pg (27.0-33.0); MEAN CORPUSCULAR HGB CONC 32.9 g/dl (32.0-36.5); MEAN CORPUSCULAR VOLUME 95.7 fl (80.0-96.0); PLATELET COUNT, AUTOMATED 244 10^3/uL (150-450); RED BLOOD COUNT 3.94 10^6/uL (4.30-6.10)
[2021-01-14 06:33] LABS: BLOOD UREA NITROGEN 31 MG/DL (7-18); CALCIUM LEVEL 8.7 MG/DL (8.8-10.2); CARBON DIOXIDE LEVEL 26 MEQ/L (21-32); CHLORIDE LEVEL 111 MEQ/L (98-107); CK-MB VALUE MASS 6.4 NG/ML (<3.6); CPK CREATINE PHOSPHOKINASE 122 U/L (39-308); CREATININE FOR GFR 1.12 MG/DL (0.70-1.30); FREE THYROXINE INDEX 3.8 % (1.4-3.8); GLOMERULAR FILTRATION RATE > 60.0 (>49); GLUCOSE, FASTING 84 MG/DL (70-100); MB/CK RELATIVE INDEX 5.25 (< OR =4); POTASSIUM SERUM 4.2 MEQ/L (3.5-5.1); SODIUM LEVEL 142 MEQ/L (136-145); T UPTAKE 37 % (33-40); THYROXINE (T4) 10.3 UG/DL (4.5-12.0); TROPONIN I < 0.02 NG/ML (< 0.10)
--- NOTE | 2021-01-14 08:24 | RO ---
OPERATIVE NOTE DATE OF OPERATION: 01/13/2021 PREOPERATIVE DIAGNOSIS: Spontaneous pneumothorax, right side. POSTOPERATIVE DIAGNOSIS: Spontaneous pneumothorax, right side. PROCEDURE: Insertion of anterior superior right chest tube. SURGEON: EJ BONILLA M.D. DESCRIPTION OF PROCEDURE: Under satisfactory moderate sedation achieved with 3 mg of Versed, the patient was prepped and draped in the usual sterile fashion. Skin, subcutaneous tissue, muscle and pleura were infiltrated with 1% Lidocaine. An incision was made and a tunnel was created into the chest. A #20 chest tube was placed at the apex. It was connected to the Pleur-Evac and secured to the chest wall with #2 Tevdek suture. The patient tolerated the procedure well and a chest x-ray is pending.
--- NOTE | 2021-01-14 08:48 | REP ---
INDICATION: r chest tube for pneumo. COMPARISON: Portable chest, 01/13/2021. TECHNIQUE: Upright AP portable chest image was obtained. FINDINGS: There is again noted a right-sided large bore thoracostomy tube. There is almost complete expansion of the right lung with a minimal apical pneumothorax. The lungs are otherwise clear. There are no pleural effusions. The heart borders and mediastinum are normal. IMPRESSION: Minimal residual apical pneumothorax on the right. Right thoracostomy tube unchanged in position. <Electronically signed by Fortino Adrian > 01/14/21 [id number]
[2021-01-14] MEDS ORDERED: hydroCHLOROthiazide 12.5 MG CAPSULE PO SCH (09:00)
--- NOTE | 2021-01-14 09:17 | CR ---
CONSULTATION DATE: 01/13/2021 REQUESTING PHYSICIAN: Seema Kelley M.D. The patient is going to be admitted to the Hospitalist Service. HISTORY OF PRESENT ILLNESS: The patient is a 65-year-old white male with known severe COPD and bullous disease who was seen this past November with a spontaneous pneumothorax of about 10 to 15%. It was elected to be observed and eventually resolved itself. 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 He started to feel sudden shortness of breath. The shortness of breath has continued. It is notable that he did not have chest discomfort or chest pain. There has been no fever, chills or sweats. He has a cough but no sputum production. He has a cough but no sputum production. He had a significant weight loss of 30 pounds over the past six months. Chest x-ray was taken which showed a 25 to 30% pneumothorax. His CT scan done on 01/03/2021 showed chronic changes. It was ordered for a solitary pulmonary nodule which is not present. He did have severe emphysematous bullous disease. PAST MEDICAL ILLNESSESS: 1. Some type of pericarditis a year or two years ago which was drained at [facility] by pericardiocentesis. 2. Severe COPD. 3. Hypertension, although he denies hypertension but is listed in the medical record. PAST SURGICAL HISTORY: 1. Bilateral inguinal hernia repairs. 2. The above pericardiocentesis. MEDICATIONS AT HOME: 1. Albuterol sulfate aerosol two puffs p.r.n. shortness of breath 2. Aspirin 81 q. day. 3. Arnuity Ellipta 200 mcg q. day via inhalation. 4. Breo Ellipta 200-25 one puff q. day via inhalation. 5. Hydrochlorothiazide 12.5 mg q. day. 6. Combivent Respimat 20-100 one puff q.i.d. p.r.n. shortness of breath. ALLERGIES: None. TRAVEL HISTORY: He has been [place] but not to the [facility]. There is no foreign travel. He has been to [place]. EXPOSURES: No dogs, birds, or cats at home. 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 There is no convincing asbestos exposure. HABITS: Smoked one pack per day of Geismar until about four years ago when he quit cold turkey. Denies ethanol intake or illicit drugs. FAMILY HISTORY: Not pertinent to the acute situation. REVIEW OF SYSTEMS: Constitutional: See HPI. Had a 30 pound weight loss over six months. Epistaxis: None. Mouth: Has false teeth. Respiratory: See HPI. Cardiac: See HPI. Does not complain of orthopnea or paroxysmal nocturnal dyspnea, or intermittent claudication. He states he sometimes gets peripheral edema. GI without nausea, vomiting, diarrhea, constipation, melena or hematochezia, or abdominal pain. : Without dysuria or hematuria or a history of renal stones. Endocrine: Without diabetes, without thyroid disease. Neurologic: Without paresthesias, paralysis, or former seizures. Psychiatric: Without pathological anxiety, depression or psychoses. PHYSICAL EXAMINATION: GENERAL: Well-developed, underweight cachectic white male in mild respiratory distress with shortness of breath. VITAL SIGNS: Temperature is 98.1 with a heart rate of 101 and sinus rhythm, respiratory rate of 19 without the use of accessory muscles who is 93% saturated on room air and his blood pressure is 105/74. HEAD: Normocephalic. Eyes: Pupils equal and reactive to light. Extraocular muscles intact. Sclera anicteric. Nose without deformity. Mouth shows the mucous membranes to the pink and moist. Lips and commissures without lesions. There is no thrush. NECK: Supple. There is no jugular venous distention. No subcutaneous emphysema. Trachea is midline. There are no carotid bruits. He has 2+ carotid upstrokes. There is no thyromegaly or lymphadenopathy. LUNGS: Lungs show hyperresonance to percussion on the right side with decreased breath sounds on the right side. The left side shows decreased breath sounds but more prominent on the left than the right. I hear no wheezes, rhonchi or rales. CARDIAC: Without murmurs, clicks, gallops or rubs. It is hard to auscultate secondary to his cachexia. I cannot feel his PMI. S1 and S2 are normal. ABDOMEN: Soft, nontender. Bowel sounds are positive. There is no hepatomegaly. No CVA tenderness. EXTREMITIES: No prevertebral edema. No calf tenderness. No differential swelling of the upper extremities. SKIN: Warm, dry and perfused without cyanosis or mottling including that of nailbeds and knees. NEUROLOGIC: Cranial nerves II-XII intact. Normal gross motor and gross sensation intact. Gait is not tested. PSYCHIATRIC: He is awake, alert and oriented x3 with appropriate mood and affect and conversational. LABORATORY DATA: His white count today is 8.9 with a hemoglobin and hematocrit of 13.4 and 40.1 respectively. Platelet count is 334,000 and differential shows 74% neutrophils, 14% lymphocytes and 7% monocytes. There no immature forms, no toxic granulations. His electrolytes shows a marginally low total CO2 of 19. BUN and creatinine are 27 and 1.09 respectively. LFTs are normal. His beta natruretic peptide is 1310. TSH is 9.8. Calcium is 9.2 with a corresponding albumin of 3.5. He is COVID negative. His blood gases today shows a pH of 7.42, pO2 of 55, and a PCO2 of 28 with a base excess of -5.0. Chest x-ray is described above with a 30 to 40% pneumothorax. IMPRESSION: 1. Spontaneous recurrent pneumothorax, right side. 2. Severe COPD with bullous disease. 3. Probable hypertension. 4. Hypothyroidism by laboratory examination with a very elevated TSH. 5. Status post remote history of pericarditis with pericardiocentesis done at [facility] in [place]. PLAN/DISCUSSION: Will immediately place an anterior superior chest tube. He is being admitted to the Hospitalist Service and I will let them address the finding of increased TSH. Will monitor chest tube for an air leak. After his lung is re-expanded to the chest wall, I will again probably repeat a CT scan to look for any other underlying disease.
[2021-01-14] MEDS: ASPIRIN 81 MG CHEW TABLET PO SCH (10:13)
[2021-01-14] MEDS: ACETAMINOPHEN 500 MG TAB PO SCH ×4 (10:14→20:30)
--- NOTE | 2021-01-14 11:23 | IPN ---
PROGRESS NOTE DATE: 01/14/2021 SUBJECTIVE: Mr. Thayer is no longer leaking from his chest tube. His pain is being well-controlled at the chest tube insertion site. He is breathing well. There is a cough but no sputum production. His vital signs shows a T-max of 98.5 with a heart rate that ranges between 81 and 96 and is sinus rhythm, respiratory rate is 16 to 20 without the use of accessory muscles and 94 to 97% saturated on room air. His blood pressure is ranging between 94/67 to 90/58. His intake and output over the past 24 hours has been recorded as only 360 in and 150 out for a positivity of 210 ml. He weighs 51.5 kilos today compared to 52.1 kilos yesterday. His intake this morning has been recorded as 120 ml in. OBJECTIVE: His lungs show decreased breath sounds on both sides but equally so. I hear no wheezes, rhonchi or rales and percussion note is no longer hyperresonant on the right but full to the diaphragm both right and left. There is no subcutaneous emphysema. Cardiac exam is without murmurs, clicks, gallops or rubs. I cannot feel his PMI. S1 and S2 are normal. Abdomen is soft, nontender. Bowel sounds are positive. There is no hepatomegaly. No CVA tenderness. Extremities show no pretibial edema. No calf tenderness. No differential swelling of the upper extremities. Skin is warm, dry and perfused without cyanosis or mottling including that of nailbeds and knees. Neck is supple. There is no jugular venous distention. No subcutaneous emphysema. Trachea is midline. Mouth shows the mucous membranes to the pink and moist. Lips and commissures without lesions or thrush. Eyes shows the pupils equal and reactive. Extraocular muscles are intact. Sclera nonicteric. Neurologic: Cranial nerves II-XII are intact. Normal gross motor and gross normal sensation intact. Gait is not tested. Psychiatric shows him to be alert and oriented x3 with appropriate mood and affect and conversational. LABORATORY DATA: His count today is 8.0 with a hemoglobin and hematocrit of 12.4 and 37.7 respectively and a platelet count of 244,000. His electrolytes are essentially normal with a BUN and creatinine of 31 and 1.12. Calcium is 8.7 with a corresponding albumin of 3.5. His TSH is now 6.4. I do not see he has been placed on levothyroxine for his hypothyroidism. IMPRESSION: 1. Recurrent spontaneous pneumothorax right side x2. 2. Severe COPD with bullous disease. 3. Probable hypertension. 4. Hypothyroidism by laboratory examination. 5. Remote history of pericarditis with pericardiocentesis done at [facility] in [place]. PLAN/DISCUSSION: I will discontinue his chest tube from suction. Normally, after two pneumothoraces I would recommend a wedge resection and talc pleurodesis. However, he has so many bullae which I do not know which one would be leaking although I could probably find it at operation time. I suspect he has very poor lung function. I will therefore defer taking him to the Operating Room on this occasion and will give him three strikes for the usual two to recommend definitive surgical intervention. He understands reasoning and agrees with it. He does have a 30 pound weight loss over the past six months. I was going to order another CT scan but his latest CT scan was done in late December which did not show the tumor. I suspect his weight loss is pulmonary cachexia. If his chest x-ray is satisfactory tomorrow I will remove his chest tube and wait another 24 hours to see if his lung will stay up. At that time we will discharge him.
--- NOTE | 2021-01-14 12:17 | IPN ---
PROGRESS NOTE DATE: 01/14/2021 SUBJECTIVE: Patient denies any chest pain despite having a right sided thoracotomy tube. No issues overnight, breathing comfortably this morning. Blood pressure tends to run a little low with a pressure of 90 to 100 systolic with a mean arterial pressure of 69 to 78 at the bedside. He is currently on Hydrochlorothiazide which has been discontinued. OBJECTIVE: VITAL SIGNS: Temperature is 98.5, pulse is 81, respiratory rate is 20, blood pressure 90/58, 97% on room air. GENERAL: Patient appears cachectic, bitemporal wasting, frail, in no distress. Speaks in full sentences. NECK: No JVD, thyromegaly or cervical lymphadenopathy. CHEST: Right sided thoracotomy tube noted in the anterior chest. LUNGS: Diminished but clear to auscultation. No wheezing or rales. HEART: S1 and S2, sinus rhythm. ABDOMEN: Soft, nontender and nondistended. Positive bowel sounds. EXTREMITIES: No cyanosis, clubbing or pitting edema. LABORATORY DATA AND IMAGING STUDIES: Have been reviewed. ASSESSMENT AND PLAN: This is a 65-year-old male with a history of emphysema, COPD, liver cirrhosis, gastric ulcers and pneumothorax December 02 to , no intervention or chest tube placed, calcific pleural plaques, abnormal EKG with anterolateral infarct who presents with worsening shortness of breath, dyspnea on exertion that started on Thursday, found to have a right sided pneumothorax. Chest thoracotomy tube placed by Dr. Obrien on 01/13/2021. ACUTE ISSUES: 1. 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 Denis Obrien with daily chest x-rays, supplementation oxygen as needed to keep saturations 88 to 92%. Tylenol and as needed Morphine for pain control. 2. COPD, on home bronchodilators, not in acute exacerbation. 3. Abnormal EKG with anteroseptal infarct, age undetermined. Troponins are currently negative. He is on telemetry. He denies any chest pain. A 2-D echo has been ordered. 4. Elevated BNP, awaiting 2-D echo. Patient does not have any significant fluid. He is currently hypotensive and not on medications. 5. Liver cirrhosis, appears to be compensated, no signs of ascites or anasarca. Quit alcohol use many years ago. 6. Tobacco abuse with COPD, quit smoking five years ago, has over a 50 pack year history of smoking. 7. History of gastric ulcers, outpatient surveillance with EGD, calcified pleural plaques on CT chest, outpatient follow-up with his fiber optic assembler, Dr. Couch. 8. h/o pericardial effusion. 2d echo pending. MTDD
--- NOTE | 2021-01-14 14:17 | ECHO ---
ECHOCARDIOGRAM DATE OF PROCEDURE: 01/14/2021 Age: 65 Gender: Male Height: 173 cm Weight: 52 kg REFERRING PHYSICIAN: Prabha Bean MD INDICATION: Dyspnea, history of pericardial effusion. MEASUREMENTS: IVS 0.8 cm LV 4.8 cm LVPW 0.8 cm LA 2.5 cm Aorta 3.2 cm RV 2.0 cm IVC 1.4 cm DOPPLER MEASUREMENT Mitral E wave velocity 45 Mitral A wave 55 E prime septal 6.3 E prime lateral 6.5 FINDINGS: This study is of acceptable technical quality. The patient is in sinus rhythm. Left ventricle is normal size. There is severe global hypokinesis. I estimate overall EF 25% to 30% even though the computer calculated EF of 46%, which is considered too optimistic. Right ventricle is normal size and systolic function. Both atria appear normal. Aortic valve is sclerotic, but has three cusps and normal mobility. Mitral and tricuspid valves appear normal. Limited views of pulmonic valve also appear normal. [id number] size noncompressive pericardial effusion is present. Inferior vena cava is relatively small and appropriately collapses with inspiration indicative of normal central venous pressure. The aortic root is normal. Aortic arch and abdominal aorta were not well seen. Doppler interrogation of the aortic valve reveals no stenosis or insufficiency. The same applies for the mitral valve. There is trace tricuspid insufficiency. Calculated pulmonary artery pressure is around 35 mmHg corresponding to mild pulmonary hypertension. Pulmonic valve is functionally competent. Mitral inflow pattern and tissue Doppler imaging of the mitral annulus revealed grade 1 diastolic dysfunction. CONCLUSIONS: 1. Study is of acceptable technical quality, underlying sinus rhythm. 2. Normal LV size with severe global left ventricular systolic dysfunction and estimated LVEF 25% to 30%. Grade 1 diastolic dysfunction. 3. No significant valvular disease. 4. Likely normal central venous pressure and mild pulmonary hypertension. 5. Small to moderate size circumferential, but noncompressive pericardial effusion.
--- NOTE | 2021-01-14 16:45 | ECGEPIP ---
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
[2021-01-14] MEDS: ADVAIR HFA 230/21MCG INHALER INH SCH (19:26)
[2021-01-14] MEDS ORDERED: FLUTICASONE HFA 110 MCG 12 GM INHALER (FLOVENT) INH SCH (20:00)
[2021-01-15 04:00] VITALS: BP 103/55
[2021-01-15 05:42] LABS: HEMATOCRIT 38.1 % (42.0-52.0); HEMOGLOBIN 12.3 g/dl (13.5-17.5); MEAN CORPUSCULAR HEMOGLOBIN 30.9 pg (27.0-33.0); MEAN CORPUSCULAR HGB CONC 32.3 g/dl (32.0-36.5); MEAN CORPUSCULAR VOLUME 95.7 fl (80.0-96.0); PLATELET COUNT, AUTOMATED 260 10^3/uL (150-450); RED BLOOD COUNT 3.98 10^6/uL (4.30-6.10); WHITE BLOOD COUNT 7.1 10^3/uL (4.0-10.0)
[2021-01-15 06:15] LABS: BLOOD UREA NITROGEN 27 MG/DL (7-18); CALCIUM LEVEL 8.9 MG/DL (8.8-10.2); CARBON DIOXIDE LEVEL 24 MEQ/L (21-32); CHLORIDE LEVEL 110 MEQ/L (98-107); CREATININE FOR GFR 1.13 MG/DL (0.70-1.30); GLOMERULAR FILTRATION RATE > 60.0 (>49); GLUCOSE, FASTING 96 MG/DL (70-100); POTASSIUM SERUM 4.1 MEQ/L (3.5-5.1); SODIUM LEVEL 141 MEQ/L (136-145)
[2021-01-15] MEDS: ADVAIR HFA 230/21MCG INHALER INH SCH ×2 (07:48→19:33)
[2021-01-15 08:00] VITALS: BP 116/66
--- NOTE | 2021-01-15 08:29 | REP ---
INDICATION: PNEUMOTHORAX. COMPARISON: Comparison chest x-ray January 14, 2021. TECHNIQUE: Two views.. FINDINGS: A right apical chest tube remains in place. There is a small right apical pneumothorax. This has increased slightly since yesterday's radiograph. The lungs overall remain hyperinflated. No focal infiltrate is seen. Pleural angles are sharp. Cardiomediastinal silhouette is unremarkable. Monitoring electrodes are seen. IMPRESSION: Small right apical pneumothorax persists. Slightly increased from prior study. Right chest tube remains in place. <Electronically signed by Elian Ac > 01/15/21 [id number]
[2021-01-15] MEDS: ASPIRIN 81 MG CHEW TABLET PO SCH (09:47)
[2021-01-15] MEDS: ACETAMINOPHEN 500 MG TAB PO SCH ×4 (09:48→20:33)
[2021-01-15 12:00] VITALS: BP 100/72
--- NOTE | 2021-01-15 12:45 | IPN ---
PROGRESS NOTE DATE: 01/15/2021 SUBJECTIVE: Mr. Thayer's chest x-ray shows his lung is now from the chest wall to cupola once again. When hooked back up to suction he has an air leak. He is not complaining of any difficulty breathing. His vital signs shows a T-max of 98.9 with a heart rate that ranges between 110 and 96 and is sinus rhythm, respiratory rate is 17 to 16 without the use of accessory muscles who is 98 to 93% saturated on room air and his blood pressure is ranging between 103/55 to 116/66. His intake and output over the past 24 hours was recorded as 820 in and 635 out for a positivity of 185 ml. He has put 10 ml out the chest tube and when placed back to suction he has an air leak. OBJECTIVE: After placing back on suction he has equal breath sounds on either side. They are both equally diminished, however. I hear no wheezes, rhonchi or rales. Percussion note is full to the diaphragm. Cardiac exam is without murmurs, clicks, gallops or rubs. I cannot feel his PMI. S1 and S2 are normal. His auscultation is difficult because of his cachexia. Abdomen is soft, nontender. Bowel sounds are positive. There is no hepatomegaly. No CVA tenderness. Extremities show no pretibial edema. No calf tenderness. No differential swelling of the upper extremities. Skin is warm, dry and perfused without cyanosis or mottling including that of nailbeds and knees. Neck is supple. There is no jugular venous distention. No subcutaneous emphysema. Trachea is midline. Mouth shows the mucous membranes to the pink and moist. Lips and commissures without lesions or thrush. Eyes shows the pupils equal and reactive. Extraocular muscles are intact. Sclera nonicteric. Neurologic: Cranial nerves II-XII are intact. Normal gross motor and gross normal sensation intact. Gait is not tested. Psychiatric shows him to be awake, alert and oriented x3 with appropriate mood and affect and conversational. LABORATORY DATA: His white count today is 7.1 with a hemoglobin and hematocrit of 12.3 and 38.1 respectively with a platelet count of 216,000 and stable. Electrolytes are essentially normal with a BUN and creatinine of 27 and 1.13, essentially unchanged from yesterday. Glucose is 96 with a calcium of 8.9. His chest x-ray is described above with the lung from the cupola. I see no other infiltrates. I re-reviewed his CT scan from January 03, 2021. He has large bullae in the right upper lobe as well as in the left upper lobe. There is scarring at the apex. I do not see any paratracheal mediastinal lymphadenopathy although there is an enlarged subcarinal node. He has some mild pleural thickening on the right side inferiorly. Adrenals have a normal configuration and there are no liver lesions. IMPRESSION: 1. Recurrent right pneumothorax, spontaneous. 2. Severe COPD with bullous disease. 3. Hypertension. 4. Hypothyroidism by laboratory examination. 5. Remote history of pericarditis with pericardial centesis done at [facility] in [place]. PLAN/DISCUSSION: I am not quite resonant to take him to the Operating Room and I am therefore going to place him back on suction for a number of days to see if I can get the lung to adhere to the chest wall. As noted yesterday, one would normally take the patient to the Operating Room after a second spontaneous pneumothorax. He has such extensive bullous disease that I am concerned that after stapling him I will end up with a long air leak. He also has what looks to be pulmonary cachexia and not in the best of functional health and the pleuritic inflammatory reaction may severely affect him postoperatively.
--- NOTE | 2021-01-15 15:41 | IPNPDOC ---
Subjective Date Seen The patient was seen on 01/15/21. Subjective Chief Complaint/HPI Patient denies any shortness of breath, reports that his pain at the chest tube site is controlled. Today's chest x-ray showed worsening of the pneumothorax again so he is chest tube was put back on suction. Objective Physical Examination General Exam: Positive: Alert, Cooperative, No Acute Distress Eye Exam: Positive: PERRLA, Conjunctiva & lids normal, EOMI; Negative: Sclera icteric ENT Exam: Positive: Atraumatic, Mucous membr. moist/pink, Pharynx Normal Neck Exam: Positive: Supple; Negative: JVD, thyromegaly Chest Exam: Positive: Diminished (Bilaterally); Negative: Rales, Rhonchi, Wheezing Heart Exam: Positive: Rate Normal, Regular Rhythm, Normal S1, Normal S2; Negative: Murmurs, Rubs Abdomen Exam: Positive: Normal bowel sounds, Soft; Negative: Tenderness Extremity Exam: Negative: Clubbing, Cyanosis, Edema Neuro Exam: Positive: Normal Speech, Strength at 5/5 X4 ext, Normal Tone, Cranial Nerves 3-12 NL, Reflexes 2+ Psych Exam: Positive: Memory Intact, Oriented x 3 Assessment /Plan Assessment This is a 65-year-old male with a history of emphysema, COPD, liver cirrhosis, gastric ulcers, calcific pleural plaques and right spontaneous pneumothorax December 02 to , no intervention needed it was observed and resolved spontaneously, who presented this time on 01/13/2021 with 2 days history of worsening shortness of breath, dyspnea on exertion found to have a recurrent right sided pneumothorax. Chest thoracotomy tube placed by Dr. Obrien on 01/13/2021. Recurrent right spontaneous pneumothorax Second episode right chest tube has been placed by Dr. Obrien and management as per Tylenol and as needed Morphine for pain control. COPD with bullous emphysema, on home bronchodilators, not in acute exacerbation. Systolic CHF EF of 25% to 30% with grade 1 diastolic dysfunction No signs of fluid overload Compensated at this time Liver cirrhosis, appears to be compensated, no signs of ascites or anasarca. Quit alcohol use many years ago. Severe protein calorie malnutrition BMI of 16.8 This is likely due to pulmonary cachexia Circumferential pericardial effusion in echo None can compressive history of pericarditis 1 to 2 years ago with pericardiocentesis done at [facility] As per patient report he was supposed to have a pericardial window creation on 01/15/2021 at [facility] History of gastric ulcers Continue PPI Calcified pleural plaques on CT chest, outpatient follow-up with his senior firewall engineer, Dr. Couch. Plan/VTE VTE Prophylaxis Ordered?: Yes VS, I&O, 24H, Fishbone Vital Signs/I&O Vital Signs Date Time Temp Pulse Resp B/P (MAP) Pulse Ox O2 Delivery O2 Flow Rate FiO2 01/15/21 12:00 99.1 80 17 100/72 (81) 97 Room Air 01/13/21 16:01 2.0 I&O- Last 24 Hours up to 6 AM 01/15/21 05:59 Intake Total 1020 ml Output Total 725 ml Balance 295 ml Laboratory Data 24H LABS Laboratory Tests 2 01/15/21 05:28: Nucleated Red Blood Cells % (auto) 0.0, Anion Gap 7L, Glomerular Filtration Rate > 60.0, Calcium Level 8.9 CBC/BMP Laboratory Tests 01/15/21 05:28 Microbiology Microbiology 01/13/21 Respiratory Virus Panel (PCR) ([facility]) - Final, Complete 01/13/21 Blood Culture - Preliminary, Resulted No Growth after 48 hours. All Specime... 01/13/21 Blood Culture - Preliminary, Resulted No Growth after 48 hours. All Specime... Radha Pabon MD Jan 15, 2021 15:41
[2021-01-15 16:00] VITALS: BP 104/61
[2021-01-15 20:00] VITALS: BP 94/50
[2021-01-16 00:11] VITALS: BP 93/58
[2021-01-16 04:00] VITALS: BP 96/66
[2021-01-16 05:34] LABS: HEMATOCRIT 36.4 % (42.0-52.0); MEAN CORPUSCULAR HEMOGLOBIN 31.7 pg (27.0-33.0); PLATELET COUNT, AUTOMATED 275 10^3/uL (150-450); RED BLOOD COUNT 3.79 10^6/uL (4.30-6.10); WHITE BLOOD COUNT 6.7 10^3/uL (4.0-10.0)
[2021-01-16 05:58] LABS: BLOOD UREA NITROGEN 22 MG/DL (7-18); CALCIUM LEVEL 8.8 MG/DL (8.8-10.2); CARBON DIOXIDE LEVEL 26 MEQ/L (21-32); CHLORIDE LEVEL 111 MEQ/L (98-107); CREATININE FOR GFR 0.99 MG/DL (0.70-1.30); GLOMERULAR FILTRATION RATE > 60.0 (>49); GLUCOSE, FASTING 89 MG/DL (70-100); POTASSIUM SERUM 4.1 MEQ/L (3.5-5.1); SODIUM LEVEL 142 MEQ/L (136-145)
[2021-01-16] MEDS: ADVAIR HFA 230/21MCG INHALER INH SCH ×2 (07:17→20:06)
[2021-01-16 08:00] VITALS: BP 98/78
--- NOTE | 2021-01-16 08:13 | REP ---
INDICATION: PNEUMOTHORAX. COMPARISON: Comparison chest x-ray is from January 15, 2021. TECHNIQUE: Two views.. FINDINGS: The lungs are hyperinflated but free of infiltrate. Right apical chest tube is again seen in place with a tiny sliver of apical pleural air. This has decreased from yesterday's radiograph. Monitoring electrodes are seen. Heart is not enlarged. The bony thorax remains unremarkable. IMPRESSION: Right chest tube remains in place. Tiny sliver of apical pleural air. Decreased from yesterday's study. <Electronically signed by Elian Ac > 01/16/21 [id number]
[2021-01-16] MEDS: ASPIRIN 81 MG CHEW TABLET PO SCH (08:56)
[2021-01-16] MEDS: ACETAMINOPHEN 500 MG TAB PO SCH ×4 (08:57→20:39)
--- NOTE | 2021-01-16 10:05 | IPN ---
PROGRESS NOTE DATE: 01/16/2021 SUBJECTIVE: Mr. Thayer is doing fairly well. His pain is being controlled at the chest tube insertion site and he is breathing well. There is no air leak from his chest tube. His vital signs shows a T-max of 99.7 with a heart rate that ranges between 99 and 82 and sinus rhythm, respiratory rate is 18 to 16 without the use of accessory muscles who is 98% to 100% saturated on room air and his blood pressure is ranging between 93/58 to 98/78. His intake and output over the past 24 hours has been recorded as 1220 in and 1275 out for a near equality. There is nothing out the chest tube and there is no air leak. Weight today is 51.6 kilos, essentially the same as yesterday at 51.7 kilos. OBJECTIVE: He has equal breath sounds on either side. They are both equally diminished, however. I hear no wheezes, rhonchi or rales. Percussion notes are full to the diaphragm. Cardiac exam is without murmurs, clicks, gallops or rubs. I cannot feel his PMI. S1 and S2 are normal. Abdomen is soft, nontender. Bowel sounds are positive. There is no hepatomegaly. No CVA tenderness. Extremities show no pretibial edema. No calf tenderness. No differential swelling of the upper extremities. Skin is warm, dry and perfused without cyanosis or mottling including that of nailbeds and knees. Neck is supple. There is no jugular venous distention. No subcutaneous emphysema. Trachea is midline. Mouth shows the mucous membranes to the pink and moist. Lips and commissures without lesions or thrush. Eyes shows the pupils equal and reactive. Extraocular muscles are intact. Sclera nonicteric. Neurologic: Cranial nerves II-XII are intact. Normal gross motor and gross normal sensation intact. Gait is not tested. Psychiatric shows him to be awake, alert and oriented x3 with appropriate mood and affect and conversational. LABORATORY DATA: His white count today is 6.7 with a hemoglobin and hematocrit of 12.0 and 36.4 respectively, platelet count is 275,000 and stable. Chemistries showed essentially normal electrolytes with a BUN and creatinine of 22 and 0.99, glucose of 89 and a calcium of 8.8. A chest x-ray still shows a small apical pneumothorax with a chest tube in excellent position at the cupola. I see no infiltrates and the costophrenic angles are sharp. There is no subcutaneous emphysema. IMPRESSION: 1. Recurrent pneumothorax, right side, spontaneous. 2. Severe COPD with bullous disease. 3. Hypertension. 4. Hypothyroidism by laboratory examination. 5. Remote history of pericarditis with pericardiocentesis done at [facility] in [place]. PLAN/DISCUSSION: I will continue him on suction today. He is not leaking although his lung is still not fully applied to the chest wall. The chest tube is in excellent position. It may be a compliance issue with regard to his lung not expanding to the chest wall. Again, I am hoping to keep him out of the Operating Room because of his underlying pulmonary function and severe bullous disease.
[2021-01-16 11:04] VITALS: BP 91/61
--- NOTE | 2021-01-16 11:18 | IPNPDOC ---
Subjective Date Seen The patient was seen on 01/16/21. Subjective Chief Complaint/HPI No complaints at this morning. Denies any shortness of breath. Chest tube remains on suction. Chest x-ray with chest tube and suction shows improvement since yesterday. Objective Physical Examination General Exam: Positive: Alert, Cooperative, No Acute Distress Eye Exam: Positive: PERRLA, Conjunctiva & lids normal, EOMI; Negative: Sclera icteric ENT Exam: Positive: Atraumatic, Mucous membr. moist/pink, Pharynx Normal, Other ENT (Bitemporal wasting) Neck Exam: Positive: Supple; Negative: JVD, thyromegaly Chest Exam: Positive: Diminished (Bilaterally); Negative: Rales, Rhonchi, Wheezing Heart Exam: Positive: Rate Normal, Regular Rhythm, Normal S1, Normal S2; Negative: Murmurs, Rubs Abdomen Exam: Positive: Normal bowel sounds, Soft; Negative: Tenderness Extremity Exam: Negative: Clubbing, Cyanosis, Edema Neuro Exam: Positive: Normal Speech, Strength at 5/5 X4 ext, Normal Tone, Cranial Nerves 3-12 NL, Reflexes 2+ Psych Exam: Positive: Memory Intact, Oriented x 3 Assessment /Plan Assessment This is a 65-year-old male with a history of emphysema, COPD, liver cirrhosis, gastric ulcers, calcific pleural plaques and right spontaneous pneumothorax December 02 to , no intervention needed it was observed and resolved spontaneously, who presented this time on 01/13/2021 with 2 days history of worsening shortness of breath, dyspnea on exertion found to have a recurrent right sided pneumothorax. Chest thoracotomy tube placed by Dr. Obrien on 01/13/2021. Recurrent right spontaneous pneumothorax Second episode right chest tube has been placed by Dr. Obrien and management as per Dr. Obrien. Tylenol and as needed and morphine for pain control. COPD with bullous emphysema, on home bronchodilators, not in acute exacerbation. Systolic CHF EF of 25% to 30% with grade 1 diastolic dysfunction No signs of fluid overload Compensated at this time Liver cirrhosis, appears to be compensated, no signs of ascites or anasarca. Quit alcohol use many years ago. 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 Couch. Plan/VTE VTE Prophylaxis Ordered?: Yes VS, I&O, 24H, Fishbone Vital Signs/I&O Vital Signs Date Time Temp Pulse Resp B/P (MAP) Pulse Ox O2 Delivery O2 Flow Rate FiO2 01/16/21 11:04 98.6 83 18 91/61 (71) 95 Room Air 01/13/21 16:01 2.0 I&O- Last 24 Hours up to 6 AM 01/16/21 06:00 Intake Total 1020 ml Output Total 1300 ml Balance -280 ml Laboratory Data 24H LABS Laboratory Tests 2 01/16/21 05:09: Nucleated Red Blood Cells % (auto) 0.0, Anion Gap 5L, Glomerular Filtration Rate > 60.0, Calcium Level 8.8 CBC/BMP Laboratory Tests 01/16/21 05:09 Microbiology Microbiology 01/13/21 Respiratory Virus Panel (PCR) ([facility]) - Final, Complete 01/13/21 Blood Culture - Preliminary, Resulted No Growth after 48 hours. All Specime... 01/13/21 Blood Culture - Preliminary, Resulted No Growth after 48 hours. All Specime... Radha Pabon MD Jan 16, 2021 11:18
[2021-01-16 16:00] VITALS: BP 90/60
[2021-01-16 20:00] VITALS: BP 103/59
[2021-01-17] VITALS: BP 95/60
[2021-01-17 04:00] VITALS: BP 98/67
[2021-01-17 05:59] LABS: HEMOGLOBIN 12.3 g/dl (13.5-17.5); MEAN CORPUSCULAR HEMOGLOBIN 30.9 pg (27.0-33.0); MEAN CORPUSCULAR HGB CONC 32.4 g/dl (32.0-36.5); MEAN CORPUSCULAR VOLUME 95.5 fl (80.0-96.0); PLATELET COUNT, AUTOMATED 271 10^3/uL (150-450); RED BLOOD COUNT 3.98 10^6/uL (4.30-6.10); WHITE BLOOD COUNT 7.2 10^3/uL (4.0-10.0)
[2021-01-17 06:20] LABS: BLOOD UREA NITROGEN 25 MG/DL (7-18); CALCIUM LEVEL 8.9 MG/DL (8.8-10.2); CARBON DIOXIDE LEVEL 26 MEQ/L (21-32); CHLORIDE LEVEL 109 MEQ/L (98-107); CREATININE FOR GFR 1.08 MG/DL (0.70-1.30); GLOMERULAR FILTRATION RATE > 60.0 (>49); GLUCOSE, FASTING 95 MG/DL (70-100); POTASSIUM SERUM 4.4 MEQ/L (3.5-5.1); SODIUM LEVEL 139 MEQ/L (136-145)
[2021-01-17] MEDS: ADVAIR HFA 230/21MCG INHALER INH SCH ×2 (07:19→20:00)
[2021-01-17 08:11] VITALS: BP 123/67
--- NOTE | 2021-01-17 08:16 | REP ---
INDICATION: PNEUMOTHORAX. COMPARISON: Comparison chest x-ray January 16, 2021. TECHNIQUE: Two views.. FINDINGS: A right apical chest tube remains in place. A tiny sliver of apical pleural air is seen adjacent to the chest tube unchanged. The lung ervin are hyperinflated and otherwise clear. Emphysematous changes are noted in the upper lobes. Heart is not enlarged. No new infiltrate. IMPRESSION: Right chest tube at the apex. Hyperinflation. No change from the previous day's radiograph. <Electronically signed by Elian Ac > 01/17/21 0805
--- NOTE | 2021-01-17 09:03 | IPN ---
PROGRESS NOTE DATE: 01/17/2021 SUBJECTIVE: Mr. Thayer has had an uneventful 24 hours. He is breathing well and his pain is being well-controlled at the chest tube insertion site. His vital signs shows a T-max of 98.4 with a heart rate that ranges between 78 and 95 and is sinus rhythm, respiratory rate of 18 to 20 without the use of accessory muscles. He is 96 to 97% saturated on room air. His blood pressure has ranged between 95/60 to 123/67. His intake and output over the past 24 hours has been recorded as 1320 in and 1850 out for a positivity of 470 ml. He has put nothing out the chest tube and there is no air leak. Weight today is 53 kilos compared to 51.6 kilos yesterday. OBJECTIVE: His lungs show equal breath sounds on either side, however they are both equally decreased. Percussion notes are full to the diaphragm. Cardiac exam is without murmurs, clicks, gallops or rubs. I cannot feel his PMI. S1 and S2 are normal. Abdomen is soft, nontender. Bowel sounds are positive. There is no hepatomegaly. No CVA tenderness. Extremities show no pretibial edema. No calf tenderness. No differential swelling of the upper extremities. Skin is warm, dry and perfused without cyanosis or mottling including that of nailbeds and knees. Neck is supple. There is no jugular venous distention. No subcutaneous emphysema. Trachea is midline. Mouth shows the mucous membranes to the pink and moist. Lips and commissures without lesions or thrush. Eyes shows the pupils equal and reactive. Extraocular muscles are intact. Sclera nonicteric. Neurologic: Cranial nerves II-XII are intact. Normal gross motor and gross normal sensation intact. Gait is not tested. Psychiatric shows him to be awake, alert and oriented x3 with appropriate mood and affect and conversational. LABORATORY DATA: His white count today is 7.2 with a hemoglobin and hematocrit of 12.3 and 38.0, essentially unchanged from yesterday with a platelet count that is stable at 271,000. His chemistries today shows essentially normal electrolytes with a BUN and creatinine of 25 and 1.08, glucose of 95 and a calcium of 8.9. His chest x-ray today shows his lung fully expanded to the chest wall. There was some air yesterday at the cupola of the right chest, however that is now gone. The chest tube is in excellent position. Costophrenic angles are sharp. IMPRESSION: 1. Recurrent pneumothorax, right side, spontaneous. 2. Severe COPD with bullous disease. 3. Hypertension. 4. Hypothyroidism by laboratory examination. 5. Remote history of pericarditis with pericardiocentesis done at [facility] in [place]. PLAN/DISCUSSION: I will continue him on suction today. I will probably take him off suction over the weekend to see if the lung will stay up. If note, I will finally take him to the Operating Room.
[2021-01-17] MEDS: ASPIRIN 81 MG CHEW TABLET PO SCH (10:24)
[2021-01-17] MEDS: ACETAMINOPHEN 500 MG TAB PO SCH ×4 (10:25→20:23)
--- NOTE | 2021-01-17 11:04 | IPNPDOC ---
Subjective Date Seen The patient was seen on 01/17/21. Subjective Chief Complaint/HPI Patient seen at bedside this morning no complaints comfortable denies any chest pain. Chest x-ray this morning unchanged from yesterday. chest tube remains on suction Objective Physical Examination General Exam: Positive: Alert, Cooperative, No Acute Distress Eye Exam: Positive: PERRLA, Conjunctiva & lids normal, EOMI; Negative: Sclera icteric ENT Exam: Positive: Atraumatic, Mucous membr. moist/pink, Pharynx Normal, Other ENT (Bitemporal wasting) Neck Exam: Positive: Supple; Negative: JVD, thyromegaly Chest Exam: Positive: Diminished (Bilaterally); Negative: Rales, Rhonchi, Wheezing Heart Exam: Positive: Rate Normal, Regular Rhythm, Normal S1, Normal S2; Negative: Murmurs, Rubs Abdomen Exam: Positive: Normal bowel sounds, Soft; Negative: Tenderness Extremity Exam: Negative: Clubbing, Cyanosis, Edema Neuro Exam: Positive: Normal Speech, Strength at 5/5 X4 ext, Normal Tone, Cranial Nerves 3-12 NL, Reflexes 2+ Psych Exam: Positive: Memory Intact, Oriented x 3 Assessment /Plan Assessment This is a 65-year-old male with a history of emphysema, COPD, liver cirrhosis, gastric ulcers, calcific pleural plaques and right spontaneous pneumothorax December 02 to , no intervention needed it was observed and resolved spontaneously, who presented this time on 01/13/2021 with 2 days history of worsening shortness of breath, dyspnea on exertion found to have a recurrent right sided pneumothorax. Chest thoracotomy tube placed by Dr. Obrien on 01/13/2021. Recurrent right spontaneous pneumothorax Second episode right chest tube has been placed by Dr. Obrien and management as per Dr. Obrien. Tylenol and as needed and morphine for pain control. Chest tube remains on suction plan is to continue that for another 3 to 4 days and hope in the lung is going to heal by itself and the patient would not need any surgical intervention. COPD with bullous emphysema, on home bronchodilators, not in acute exacerbation. Systolic CHF EF of 25% to 30% with grade 1 diastolic dysfunction No signs of fluid overload Compensated at this time Liver cirrhosis, appears to be compensated, no signs of ascites or anasarca. Quit alcohol use many years ago. 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 Couch. Plan/VTE VTE Prophylaxis Ordered?: Yes VS, I&O, 24H, Fishbone Vital Signs/I&O Vital Signs Date Time Temp Pulse Resp B/P (MAP) Pulse Ox O2 Delivery O2 Flow Rate FiO2 01/17/21 08:11 98.4 95 20 123/67 (85) 96 Room Air 01/13/21 16:01 2.0 I&O- Last 24 Hours up to 6 AM 01/17/21 05:59 Intake Total 1440 ml Output Total 1267 ml Balance 173 ml Laboratory Data 24H LABS Laboratory Tests 2 01/17/21 05:38: Nucleated Red Blood Cells % (auto) 0.0, Anion Gap 4L, Glomerular Filtration Rate > 60.0, Calcium Level 8.9 CBC/BMP Laboratory Tests 01/17/21 05:38 Microbiology Microbiology 01/13/21 Respiratory Virus Panel (PCR) ([facility]) - Final, Complete 01/13/21 Blood Culture - Preliminary, Resulted No Growth after 72 hours. All specime... 01/13/21 Blood Culture - Preliminary, Resulted No Growth after 72 hours. All specime... Radha Pabon MD Jan 17, 2021 11:04
[2021-01-17 11:33] VITALS: BP 91/59
[2021-01-17 15:16] VITALS: BP 92/59
[2021-01-17 20:00] VITALS: BP 97/65
[2021-01-18] VITALS: BP 91/62
[2021-01-18 04:00] VITALS: BP 94/55
[2021-01-18 05:26] LABS: HEMATOCRIT 37.6 % (42.0-52.0); HEMOGLOBIN 12.1 g/dl (13.5-17.5); MEAN CORPUSCULAR HEMOGLOBIN 31.3 pg (27.0-33.0); MEAN CORPUSCULAR HGB CONC 32.2 g/dl (32.0-36.5); MEAN CORPUSCULAR VOLUME 97.4 fl (80.0-96.0); PLATELET COUNT, AUTOMATED 273 10^3/uL (150-450); RED BLOOD COUNT 3.86 10^6/uL (4.30-6.10); WHITE BLOOD COUNT 7.3 10^3/uL (4.0-10.0)
[2021-01-18 05:50] LABS: BLOOD UREA NITROGEN 29 MG/DL (7-18); CALCIUM LEVEL 8.6 MG/DL (8.8-10.2); CARBON DIOXIDE LEVEL 26 MEQ/L (21-32); CHLORIDE LEVEL 108 MEQ/L (98-107); CREATININE FOR GFR 1.09 MG/DL (0.70-1.30); GLOMERULAR FILTRATION RATE > 60.0 (>49); GLUCOSE, FASTING 95 MG/DL (70-100); POTASSIUM SERUM 4.3 MEQ/L (3.5-5.1); SODIUM LEVEL 140 MEQ/L (136-145)
[2021-01-18] MEDS: ADVAIR HFA 230/21MCG INHALER INH SCH ×2 (07:39→20:00)
[2021-01-18 08:00] VITALS: BP 100/61
--- NOTE | 2021-01-18 08:21 | REP ---
INDICATION: PNEUMOTHORAX. COMPARISON: Comparison chest x-ray January 17, 2021. TECHNIQUE: Two views.. FINDINGS: Right apical chest tube remains in place. There is no significant pleural air collection. Lung ervin are hyperinflated and otherwise essentially clear. Emphysematous changes are noted in the upper lobes. Heart is not enlarged. IMPRESSION: Right chest tube remains in place. <Electronically signed by Elian Ac > 01/18/21 0827
[2021-01-18] MEDS: ACETAMINOPHEN 500 MG TAB PO SCH ×4 (09:38→20:12)
[2021-01-18] MEDS: ASPIRIN 81 MG CHEW TABLET PO SCH (09:38)
[2021-01-18 12:00] VITALS: BP 103/61
--- NOTE | 2021-01-18 13:23 | IPNPDOC ---
Subjective Date Seen The patient was seen on 01/18/21. Subjective Chief Complaint/HPI No acute overnight events. Patient comfortable sitting in bed no respiratory distress. Chest tube remains in place with suction. Chest x-ray this morning no change from before. Objective Physical Examination General Exam: Positive: Alert, Cooperative, No Acute Distress Eye Exam: Positive: PERRLA, Conjunctiva & lids normal, EOMI; Negative: Sclera icteric ENT Exam: Positive: Atraumatic, Mucous membr. moist/pink, Pharynx Normal, Other ENT (Bitemporal wasting) Neck Exam: Positive: Supple; Negative: JVD, thyromegaly Chest Exam: Positive: Diminished (Bilaterally); Negative: Rales, Rhonchi, Wheezing Heart Exam: Positive: Rate Normal, Regular Rhythm, Normal S1, Normal S2; Negative: Murmurs, Rubs Abdomen Exam: Positive: Normal bowel sounds, Soft; Negative: Tenderness Extremity Exam: Negative: Clubbing, Cyanosis, Edema Neuro Exam: Positive: Normal Speech, Strength at 5/5 X4 ext, Normal Tone, Cranial Nerves 3-12 NL, Reflexes 2+ Psych Exam: Positive: Memory Intact, Oriented x 3 Assessment /Plan Assessment This is a 65-year-old male with a history of emphysema, COPD, liver cirrhosis, gastric ulcers, calcific pleural plaques and right spontaneous pneumothorax December 02 to , no intervention needed it was observed and resolved spontaneously, who presented this time on 01/13/2021 with 2 days history of worsening shortness of breath, dyspnea on exertion found to have a recurrent right sided pneumothorax. Chest thoracotomy tube placed by Dr. Obrien on 01/13/2021. Recurrent right spontaneous pneumothorax Second episode right chest tube has been placed by Dr. Obrien and management as per Dr. Obrien. Tylenol and as needed and morphine for pain control. Chest tube remains on suction plan is to continue that for another 2 days and hope in the lung is going to heal by itself and the patient would not need any surgical intervention. COPD with bullous emphysema, on home bronchodilators, not in acute exacerbation. Systolic CHF EF of 25% to 30% with grade 1 diastolic dysfunction No signs of fluid overload Compensated at this time Liver cirrhosis, appears to be compensated, no signs of ascites or anasarca. Quit alcohol use many years ago. 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 Couch. Plan/VTE VTE Prophylaxis Ordered?: Yes VS, I&O, 24H, Fishbone Vital Signs/I&O Vital Signs Date Time Temp Pulse Resp B/P (MAP) Pulse Ox O2 Delivery O2 Flow Rate FiO2 01/18/21 12:00 98.2 89 16 103/61 (75) 98 Room Air 01/13/21 16:01 2.0 I&O- Last 24 Hours up to 6 AM 01/18/21 05:59 Intake Total 1140 ml Output Total 1228 ml Balance -88 ml Laboratory Data 24H LABS Laboratory Tests 2 01/18/21 05:01: Nucleated Red Blood Cells % (auto) 0.0, Anion Gap 6L, Glomerular Filtration Rate > 60.0, Calcium Level 8.6L CBC/BMP Laboratory Tests 01/18/21 05:01 Microbiology Microbiology 01/13/21 Respiratory Virus Panel (PCR) ([facility]) - Final, Complete 01/13/21 Blood Culture - Final, Complete NO GROWTH AFTER 5 DAYS 01/13/21 Blood Culture - Final, Complete NO GROWTH AFTER 5 DAYS Radha Pabon MD Jan 18, 2021 13:23
--- NOTE | 2021-01-18 14:31 | IPN ---
PROGRESS NOTE DATE: 01/18/2021 SUBJECTIVE: Mr. Thayer has had a satisfactory 24 hours. He is breathing well and his pain at the chest tube site is being well-managed. His vital signs shows a T-max of 98.5 with a heart rate that ranges between 79 and 99 and is in sinus rhythm, respiratory rate was 16 to 20 without the use of accessory muscles who is 99 to 97% saturated on room air and his blood pressure is ranging between 100/61 and 91/62. His intake and output over the past 24 hours has been recorded as 1020 in and 920 out for a positivity of 100 ml. He has put out 20 ml out of the chest tube and there is no air leak. Weight today is 51.7 kilos compared to 53 kilos yesterday. OBJECTIVE: His lungs show equal breath sounds on either side, although equally diminished. There are wheezes, rhonchi or rales. Percussion notes are full to the diaphragm. Cardiac exam is without murmurs, clicks, gallops or rubs. I cannot feel his PMI. S1 and S2 are normal. Abdomen is soft, nontender. Bowel sounds are positive. There is no hepatomegaly. No CVA tenderness. Extremities show no pretibial edema. No calf tenderness. No differential swelling of the upper extremities. Skin is warm, dry and perfused without cyanosis or mottling including that of nailbeds and knees. Neck is supple. There is no jugular venous distention. No subcutaneous emphysema. Trachea is midline. Mouth shows the mucous membranes to the pink and moist. Lips and commissures without lesions or thrush. Eyes shows the pupils equal and reactive. Extraocular muscles are intact. Sclera nonicteric. Neurologic: Cranial nerves II-XII are intact. Normal gross motor and gross normal sensation intact. Gait is not tested. Psychiatric shows him to be awake, alert and oriented x3 with appropriate mood and affect and conversational. LABORATORY DATA: His white count today is 7.3 with a hemoglobin and hematocrit of 12.1 and 37.6. Platelet count is 273,000 and stable. Electrolytes are normal with a BUN and creatinine of 29 and 1.09, glucose of 95 and a calcium of 8.6. His chest x-ray today shows his lung fully expanded to the chest wall. Costophrenic angles are sharp and there are no infiltrates. Chest tube is in excellent position. IMPRESSION: 1. Recurrent right pneumothorax, spontaneous. 2. Severe COPD with bullous disease. 3. Hypertension. 4. Hypothyroidism by laboratory examination. 5. Remote history of pericarditis with pericardiocentesis done at [facility] in [place]. PLAN/DISCUSSION: I will again keep him on suction today. I will plan to discontinue suction tomorrow and review his chest x-ray on Thursday. If the chest x-ray is okay on Thursday I will pull the chest tube and again repeat the chest x-ray on Thursday and hopefully send him home on Thursday. If the lung falls, we will definitely be forced to go to the Operating Room. I have spoken to his daughter, Vivienne, and she also understands the logic of this treatment.
[2021-01-18 16:35] VITALS: BP 103/61
[2021-01-18 20:00] VITALS: BP 102/60
[2021-01-19] VITALS: BP 101/69
[2021-01-19 04:00] VITALS: BP 105/60
[2021-01-19 08:00] VITALS: BP 100/63
[2021-01-19] MEDS: ADVAIR HFA 230/21MCG INHALER INH SCH ×2 (08:00→20:00)
--- NOTE | 2021-01-19 08:30 | REP ---
INDICATION: PNEUMOTHORAX COMPARISON: 01/18/2021. TECHNIQUE: PA/Lateral FINDINGS: Right chest tube appears unchanged in position. There is no evidence of a pneumothorax. No acute infiltrate is seen. The heart and mediastinum are unremarkable and unchanged. IMPRESSION: Stable exam. <Electronically signed by Jose Mas > 01/19/21 0857
[2021-01-19] MEDS ORDERED: BISACODYL 10 MG SUPP PR PRN (09:55)
[2021-01-19] MEDS: MOM 30ML SUSPENSION UDC PO SCH (10:11)
[2021-01-19] MEDS: PANTOPRAZOLE 40MG TAB (PROTONIX) PO SCH (10:12)
[2021-01-19] MEDS: ASPIRIN 81 MG CHEW TABLET PO SCH (10:12)
[2021-01-19] MEDS: DOCUSATE SODIUM 100MG CAPSULE PO SCH ×2 (10:12→21:00)
[2021-01-19] MEDS: ACETAMINOPHEN 500 MG TAB PO SCH ×4 (10:12→21:00)
--- NOTE | 2021-01-19 11:14 | IPNPDOC ---
Subjective Date Seen The patient was seen on 01/19/21. Subjective Chief Complaint/HPI No acute overnight events. Patient sitting up in bed in no distress. Chest tube to be taken off suction today. Patient is unvaccinated for COVID-19 have discussed vaccination with him and he is thinking about it he wants to talk it over with his daughter. Hopefully will be able to give him the COVID-19 vaccine before he is discharged. Objective Physical Examination General Exam: Positive: Alert, Cooperative, No Acute Distress Eye Exam: Positive: PERRLA, Conjunctiva & lids normal, EOMI; Negative: Sclera icteric ENT Exam: Positive: Atraumatic, Mucous membr. moist/pink, Pharynx Normal, Other ENT (Bitemporal wasting) Neck Exam: Positive: Supple; Negative: JVD, thyromegaly Chest Exam: Positive: Diminished (Bilaterally); Negative: Rales, Rhonchi, Wheezing Heart Exam: Positive: Rate Normal, Regular Rhythm, Normal S1, Normal S2; Negative: Murmurs, Rubs Abdomen Exam: Positive: Normal bowel sounds, Soft; Negative: Tenderness Extremity Exam: Negative: Clubbing, Cyanosis, Edema Neuro Exam: Positive: Normal Speech, Strength at 5/5 X4 ext, Normal Tone, Cranial Nerves 3-12 NL, Reflexes 2+ Psych Exam: Positive: Memory Intact, Oriented x 3 Assessment /Plan Assessment This is a 65-year-old male with a history of emphysema, COPD, liver cirrhosis, gastric ulcers, calcific pleural plaques and right spontaneous pneumothorax December 02 to , no intervention needed it was observed and resolved spontaneously, who presented this time on 01/13/2021 with 2 days history of worsening shortness of breath, dyspnea on exertion found to have a recurrent right sided pneumothorax. Chest thoracotomy tube placed by Dr. Obrien on 01/13/2021. Recurrent right spontaneous pneumothorax Second episode right chest tube has been placed by Dr. Obrien and management as per Dr. Obrien. Tylenol and as needed and morphine for pain control. Chest tube remains on suction plan is to continue that for another 2 days and hope in the lung is going to heal by itself and the patient would not need any surgical intervention. COPD with bullous emphysema, on home bronchodilators, not in acute exacerbation. Systolic CHF EF of 25% to 30% with grade 1 diastolic dysfunction No signs of fluid overload Compensated at this time Liver cirrhosis, appears to be compensated, no signs of ascites or anasarca. Quit alcohol use many years ago. 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 Couch. Plan/VTE VTE Prophylaxis Ordered?: Yes VS, I&O, 24H, Fishbone Vital Signs/I&O Vital Signs Date Time Temp Pulse Resp B/P (MAP) Pulse Ox O2 Delivery O2 Flow Rate FiO2 01/19/21 08:00 98.3 74 16 100/63 (75) 99 Room Air 01/13/21 16:01 2.0 I&O- Last 24 Hours up to 6 AM 01/19/21 06:00 Intake Total 1410 ml Output Total 1153 ml Balance 257 ml Laboratory Data Microbiology Microbiology 01/13/21 Respiratory Virus Panel (PCR) ([facility]) - Final, Complete 01/13/21 Blood Culture - Final, Complete NO GROWTH AFTER 5 DAYS 01/13/21 Blood Culture - Final, Complete NO GROWTH AFTER 5 DAYS Radha Pabon MD Jan 19, 2021 11:14
[2021-01-19 12:00] VITALS: BP 95/64
[2021-01-19 16:00] VITALS: BP 94/64
[2021-01-19 19:34] VITALS: BP 90/54
[2021-01-20] VITALS: BP 84/52
[2021-01-20 03:28] LABS: HEMATOCRIT 36.2 % (42.0-52.0); HEMOGLOBIN 11.6 g/dl (13.5-17.5); MEAN CORPUSCULAR HEMOGLOBIN 30.9 pg (27.0-33.0); MEAN CORPUSCULAR VOLUME 96.5 fl (80.0-96.0); PLATELET COUNT, AUTOMATED 257 10^3/uL (150-450); RED BLOOD COUNT 3.75 10^6/uL (4.30-6.10); WHITE BLOOD COUNT 7.4 10^3/uL (4.0-10.0)
[2021-01-20 04:00] VITALS: BP 94/55
[2021-01-20 04:08] LABS: CALCIUM LEVEL 8.6 MG/DL (8.8-10.2); CREATININE FOR GFR 1.41 MG/DL (0.70-1.30); GLOMERULAR FILTRATION RATE 53.7 (>49); POTASSIUM SERUM 4.4 MEQ/L (3.5-5.1)
[2021-01-20] MEDS: ADVAIR HFA 230/21MCG INHALER INH SCH ×2 (07:00→19:32)
[2021-01-20 08:00] VITALS: BP 105/59
[2021-01-20] MEDS: ACETAMINOPHEN 500 MG TAB PO SCH ×4 (08:15→20:16)
[2021-01-20] MEDS: MOM 30ML SUSPENSION UDC PO SCH (08:15)
[2021-01-20] MEDS: DOCUSATE SODIUM 100MG CAPSULE PO SCH ×2 (08:15→20:16)
[2021-01-20] MEDS: ASPIRIN 81 MG CHEW TABLET PO SCH (08:18)
[2021-01-20] MEDS: PANTOPRAZOLE 40MG TAB (PROTONIX) PO SCH (08:18)
--- NOTE | 2021-01-20 08:23 | REP ---
INDICATION: PNEUMOTHORAX COMPARISON: 01/19/2021. TECHNIQUE: PA/Lateral FINDINGS: The right chest tube is unchanged in position. There is no evidence of a pneumothorax. No acute infiltrate is seen. The heart and mediastinum are unremarkable and unchanged. IMPRESSION: Stable exam. <Electronically signed by Jose Mas > 01/20/21 0819
--- NOTE | 2021-01-20 10:54 | IPNPDOC ---
Subjective Date Seen The patient was seen on 01/20/21. Subjective Chief Complaint/HPI No complaints today. Denies any shortness of breath. Objective Physical Examination General Exam: Positive: Alert, Cooperative, No Acute Distress Eye Exam: Positive: PERRLA, Conjunctiva & lids normal, EOMI; Negative: Sclera icteric ENT Exam: Positive: Atraumatic, Mucous membr. moist/pink, Pharynx Normal, Other ENT (Bitemporal wasting) Neck Exam: Positive: Supple; Negative: JVD, thyromegaly Chest Exam: Positive: Diminished (Bilaterally); Negative: Rales, Rhonchi, Wheezing Heart Exam: Positive: Rate Normal, Regular Rhythm, Normal S1, Normal S2; Negative: Murmurs, Rubs Abdomen Exam: Positive: Normal bowel sounds, Soft; Negative: Tenderness Extremity Exam: Negative: Clubbing, Cyanosis, Edema Neuro Exam: Positive: Normal Speech, Strength at 5/5 X4 ext, Normal Tone, Cranial Nerves 3-12 NL, Reflexes 2+ Psych Exam: Positive: Memory Intact, Oriented x 3 Assessment /Plan Assessment This is a 65-year-old male with a history of emphysema, COPD, liver cirrhosis, gastric ulcers, calcific pleural plaques and right spontaneous pneumothorax December 02 to , no intervention needed it was observed and resolved spontaneously, who presented this time on 01/13/2021 with 2 days history of worsening shortness of breath, dyspnea on exertion found to have a recurrent right sided pneumothorax. Chest thoracotomy tube placed by Dr. Obrien on 01/13/2021. Recurrent right spontaneous pneumothorax Second episode right chest tube has been placed by Dr. Obrien and management as per Dr. Obrien. Tylenol and as needed for pain control. XCR this am unchanged, lung has expanded Plans for removing the chest tube today. Mild FABIAN Creatinine up to 1.4 today Will monitor COPD with bullous emphysema, on home bronchodilators, not in acute exacerbation. Systolic CHF EF of 25% to 30% with grade 1 diastolic dysfunction No signs of fluid overload Compensated at this time Liver cirrhosis, appears to be compensated, no signs of ascites or anasarca. Quit alcohol use many years ago. 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 Plan/VTE VTE Prophylaxis Ordered?: Yes VS, I&O, 24H, Fishbone Vital Signs/I&O Vital Signs Date Time Temp Pulse Resp B/P (MAP) Pulse Ox O2 Delivery O2 Flow Rate FiO2 01/20/21 08:00 98.0 98 17 105/59 (74) 94 Room Air I&O- Last 24 Hours up to 6 AM 01/20/21 06:00 Intake Total 680 ml Output Total 583 ml Balance 97 ml Laboratory Data 24H LABS Laboratory Tests 2 01/20/21 03:08: Nucleated Red Blood Cells % (auto) 0.0, Anion Gap 7L, Glomerular Filtration Rate 53.7, Calcium Level 8.6L CBC/BMP Laboratory Tests 01/20/21 03:08 Microbiology Microbiology 01/13/21 Respiratory Virus Panel (PCR) ([facility]) - Final, Complete 01/13/21 Blood Culture - Final, Complete NO GROWTH AFTER 5 DAYS 01/13/21 Blood Culture - Final, Complete NO GROWTH AFTER 5 DAYS Radha Pabon MD Jan 20, 2021 10:54
[2021-01-20 12:00] VITALS: BP 86/58
[2021-01-20 16:00] VITALS: BP 90/56
[2021-01-20 20:00] VITALS: BP 94/58
[2021-01-21] VITALS: BP 96/61
[2021-01-21] MEDS ORDERED: SODIUM CHLORIDE 0.9% 1000ML IV ONE (03:40)
[2021-01-21] MEDS ORDERED: NS 250 ML IV ONE (03:55)
[2021-01-21 04:00] VITALS: BP 88/52
[2021-01-21 06:17] VITALS: BP 94/56
--- NOTE | 2021-01-21 07:21 | IPN ---
PROGRESS NOTE DATE: 01/20/2021 SUBJECTIVE: Mr. Thayer is doing well today. He is breathing well and his pain is being well-controlled at the chest tube insertion site. He is not on Toradol. His chest x-ray today shows his lung fully expanded to the chest wall off suction, therefore we will remove his chest tube. His vital signs shows a T-max of 98.9 with a heart rate that ranges between 84 and 103 and sinus rhythm, respiratory rate is 17 to 20 without the use of accessory muscles who is 94 to 97% saturated on room air. His blood pressure is ranging between 84/52 to 105/59. His intake and output over the past 24 hours has been recorded as 680 in and 733 out for a near equality. He has put out 3 ml out of the chest tube and there is no air leak. Weight today is 50.5 kilos compared to 51.6 kilos yesterday. OBJECTIVE: His lungs show equal breath sounds on either side without wheezes, rhonchi or rales. Percussion notes are full to the diaphragm. Cardiac exam is without murmurs, clicks, gallops or rubs. I cannot feel his PMI. S1 and S2 are normal. Abdomen is soft, nontender. Bowel sounds are positive. There is no hepatomegaly. No CVA tenderness. Extremities show no pretibial edema. No calf tenderness. No differential swelling of the upper extremities. Skin is warm, dry and perfused without cyanosis or mottling including that of nailbeds and knees. Neck is supple. There is no jugular venous distention. No subcutaneous emphysema. Trachea is midline. Mouth shows the mucous membranes to the pink and moist. Lips and commissures without lesions or thrush. Eyes shows the pupils equal and reactive. Extraocular muscles are intact. Sclera nonicteric. Neurologic: Cranial nerves II-XII are intact. Normal gross motor and gross normal sensation intact. Gait is not tested. Psychiatric shows him to be awake, alert and oriented x3 with appropriate mood and affect and conversational. LABORATORY DATA: His chemistries today shows normal electrolytes, however his BUN and creatinine is 36 and 1.41 up from 29 and 1.09 yesterday. Calcium is 8.6 with a glucose of 95. His white count today is 7.4 with a hemoglobin and hematocrit of 11.6 and 36.2, essentially unchanged from yesterday with a platelet count of 257,000 and stable. His chest x-ray today shows his lung fully expanded to the chest wall. There is no subcutaneous emphysema. Costophrenic angles are sharp and there are no infiltrates. IMPRESSION: 1. Recurrent right pneumothorax, spontaneous. 2. Severe COPD with bullous disease. 3. Hypertension. 4. Hypothyroidism by laboratory examination. 5. Remote history of pericarditis or pericardiocentesis done at [facility] in [place]. 6. Elevation of creatinine. PLAN/DISCUSSION: I will remove the chest tubes today. If his lung stays applied to the chest wall he can be discharged tomorrow. He now has a rise in creatinine. There is no overt reason for this as he is not on any nephrotoxic drugs. I have encouraged more p.o. intake today. Will monitor his creatinine tomorrow.
[2021-01-21 07:28] VITALS: BP 88/54
[2021-01-21] MEDS: ADVAIR HFA 230/21MCG INHALER INH SCH (08:00)
--- NOTE | 2021-01-21 08:33 | REP ---
INDICATION: PNEUMOTHORAX. COMPARISON: Yesterday TECHNIQUE: PA and lateral FINDINGS: Since the last examination the right-sided thoracotomy tube has been removed. There is no evidence of a pneumothorax. There are chronic lung field changes and lung field hyperexpansion status quo. The cardiomediastinal silhouette is stable. Heart is not enlarged. The pleural angles are again seen to be sharp. There is no change in the osseous structures. IMPRESSION: Removal of the right-sided thoracotomy tube. Otherwise no significant change. <Electronically signed by Asif Ramirez > 01/21/21 2324
[2021-01-21] MEDS: MOM 30ML SUSPENSION UDC PO SCH (09:00)
[2021-01-21 09:01] LABS: BASO # 0.1 10^3/uL (0.0-0.2); BASO % 1.5 % (0.0-1.0); EOS # 0.3 10^3/uL (0.0-0.5); EOS % 3.1 % (0.0-3.0); HEMATOCRIT 40.2 % (42.0-52.0); LYMPH # 1.7 10^3/uL (1.5-5.0); LYMPH % 21.5 % (24.0-44.0); MEAN CORPUSCULAR HEMOGLOBIN 31.9 pg (27.0-33.0); MEAN CORPUSCULAR HGB CONC 32.3 g/dl (32.0-36.5); MEAN CORPUSCULAR VOLUME 98.5 fl (80.0-96.0); MONO # 0.7 10^3/uL (0.0-0.8); MONO % 8.5 % (2.0-8.0); NEUTROPHILS # 5.2 10^3/uL (1.5-8.5); NEUTROPHILS % 64.4 % (36.0-66.0); PLATELET COUNT, AUTOMATED 304 10^3/uL (150-450); RED BLOOD COUNT 4.08 10^6/uL (4.30-6.10)
--- NOTE | 2021-01-21 09:08 | DSES ---
DISCHARGE SUMMARY DATE OF ADMISSION: 01/13/2021 DATE OF DISCHARGE: 01/21/2021 DISCHARGE DIAGNOSIS: 1. Recurrent right pneumothorax, spontaneous. 2. Severe COPD with bullous disease. 3. Hypertension. 4. Hypothyroidism by laboratory examination. 5. Remote history of pericarditis. 6. Transient elevation of creatinine. HOSPITAL COURSE: The patient is an 65-year-old white male with known severe COPD and bullous disease who was last seen this November with a spontaneous pneumothorax of about 10 to 15% which was observed and eventually resolved itself. 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 He started to feel a sudden shortness of breath. It is notable he did not complain of chest discomfort. There were no fever, chills or sweats. He had a cough and no sputum production. He has had significant weight loss of 30 pounds over the last six months which has been attributed to pulmonary cachexia. He was found to have a 30 to 40% pneumothorax on the right side and an anterior/superior chest tube was placed. The chest tube was initially disconnected from suction and the lung slightly from the chest wall and was placed back on suction. Eventually, the tube was once again removed from suction and then completely removed. The chest x-ray shows a 2 mm separation from the chest wall at the cupola. He is asymptomatic. Throughout his time in the hospital his white count and H and H remained stable. He had a surprise increase in his creatinine the day before his admission and that is currently being checked. He will be followed on an outpatient basis. He was not administered Toradol during his stay and it cannot be related to Toradol. DISCHARGE MEDICATIONS: He is being discharged on his home medications which include: Albuterol Sulfate two puffs p.r.n. shortness of breath, aspirin 81 mg q. day, Breo Ellipta 200-25 one puff q. day, Hydrochlorothiazide 2.5 mg q. day and Combivent Respimat 20-100 one puff q.i.d. p.r.n. shortness of breath. He will return to see me in 7-10 days with a chest x-ray and post hospitalization follow- up. His discharge hemoglobin and hematocrit are still pending as well as his BUN and creatinine. Creatinine is 1.04. MTDD
[2021-01-21 09:27] LABS: BLOOD UREA NITROGEN 32 MG/DL (7-18); CARBON DIOXIDE LEVEL 27 MEQ/L (21-32); CHLORIDE LEVEL 108 MEQ/L (98-107); CREATININE FOR GFR 1.04 MG/DL (0.70-1.30); GLOMERULAR FILTRATION RATE > 60.0 (>49); GLUCOSE, FASTING 96 MG/DL (70-100); POTASSIUM SERUM 4.7 MEQ/L (3.5-5.1); SODIUM LEVEL 140 MEQ/L (136-145)
[2021-01-21] MEDS: PANTOPRAZOLE 40MG TAB (PROTONIX) PO SCH (09:53)
[2021-01-21] MEDS: ASPIRIN 81 MG CHEW TABLET PO SCH (09:53)
[2021-01-21] MEDS: ACETAMINOPHEN 500 MG TAB PO SCH (09:54)
[2021-01-21] MEDS: DOCUSATE SODIUM 100MG CAPSULE PO SCH (09:54)
[2021-01-21 10:10] VITALS: BP 96/66
--- NOTE | 2021-01-21 10:13 | IPNPDOC ---
Subjective Date Seen The patient was seen on 01/21/21. Subjective Chief Complaint/HPI No complaints this morning. Chest tube was discontinued yesterday. No acute overnight events. Patient is planned to be discharged today. Objective Physical Examination General Exam: Positive: Alert, Cooperative, No Acute Distress Eye Exam: Positive: PERRLA, Conjunctiva & lids normal, EOMI; Negative: Sclera icteric ENT Exam: Positive: Atraumatic, Mucous membr. moist/pink, Pharynx Normal, Other ENT (Bitemporal wasting) Neck Exam: Positive: Supple; Negative: JVD, thyromegaly Chest Exam: Positive: Diminished (Bilaterally); Negative: Rales, Rhonchi, Wheezing Heart Exam: Positive: Rate Normal, Regular Rhythm, Normal S1, Normal S2; Negative: Murmurs, Rubs Abdomen Exam: Positive: Normal bowel sounds, Soft; Negative: Tenderness Extremity Exam: Negative: Clubbing, Cyanosis, Edema Neuro Exam: Positive: Normal Speech, Strength at 5/5 X4 ext, Normal Tone, Cranial Nerves 3-12 NL, Reflexes 2+ Psych Exam: Positive: Memory Intact, Oriented x 3 Assessment /Plan Assessment This is a 65-year-old male with a history of emphysema, COPD, liver cirrhosis, gastric ulcers, calcific pleural plaques and right spontaneous pneumothorax December 02 to , no intervention needed it was observed and resolved spontaneously, who presented this time on 01/13/2021 with 2 days history of worsening shortness of breath, dyspnea on exertion found to have a recurrent right sided pneumothorax. Chest thoracotomy tube placed by Dr. Obrien on 01/13/2021. Recurrent right spontaneous pneumothorax Second episode right chest tube has been placed by Dr. Obrien and management as per Dr. Obrien. chest tube discontinued on 01/20/21, CXR this am good Plan as per Dr william. Mild FABIAN resolved. COPD with bullous emphysema, on home bronchodilators, not in acute exacerbation. Systolic CHF EF of 25% to 30% with grade 1 diastolic dysfunction No signs of fluid overload Compensated at this time will stop HCTZ. Chronic hypotension asymptomatic. Liver cirrhosis, appears to be compensated, no signs of ascites or anasarca. Quit alcohol use many years ago. 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 Plan/VTE VTE Prophylaxis Ordered?: Yes VS, I&O, 24H, Fishbone Vital Signs/I&O Vital Signs Date Time Temp Pulse Resp B/P (MAP) Pulse Ox O2 Delivery O2 Flow Rate FiO2 01/21/21 10:10 96/66 (76) 01/21/21 07:28 98.2 87 18 98 Room Air I&O- Last 24 Hours up to 6 AM 01/21/21 05:59 Intake Total 450 ml Output Total 1000 ml Balance -550 ml Laboratory Data 24H LABS Laboratory Tests 2 01/21/21 08:43: Immature Granulocyte % (Auto) 1.0, Neutrophils (%) (Auto) 64.4, Lymphocytes (%) (Auto) 21.5L, Monocytes (%) (Auto) 8.5H, Eosinophils (%) (Auto) 3.1H, Basophils (%) (Auto) 1.5H, Neutrophils # (Auto) 5.2, Lymphocytes # (Auto) 1.7, Monocytes # (Auto) 0.7, Eosinophils # (Auto) 0.3, Basophils # (Auto) 0.1, Nucleated Red Blood Cells % (auto) 0.0, Anion Gap 5L, Glomerular Filtration Rate > 60.0, Calcium Level 9.0 CBC/BMP Laboratory Tests 01/21/21 08:43 Microbiology Microbiology 01/13/21 Respiratory Virus Panel (PCR) ([facility]) - Final, Complete 01/13/21 Blood Culture - Final, Complete NO GROWTH AFTER 5 DAYS 01/13/21 Blood Culture - Final, Complete NO GROWTH AFTER 5 DAYS Radha Pabon MD Jan 21, 2021 10:13
--- NOTE | 2021-01-21 16:26 | IPN ---
PROGRESS NOTE DATE: 01/19/2021 SUBJECTIVE: Mr. Thayer is breathing well. His pain is being well controlled at the chest tube insertion site. His chest x-ray shows his lungs fully expanded to the chest wall and I will remove his chest tube from suction today. OBJECTIVE: His vital signs show a T-max of 98.6 with a heart rate ranging between 74 and 97 in sinus rhythm, respiratory rate 16 to 17 without the use of accessory muscles, who is 98 to 99% saturating on room air and his blood pressure is ranging between 100/63 to 105/60. His intake and output for the past 24 hours is recorded as 1650 in and 1728 out for a negativity of 78 mL. Its about 3 mL in the chest tube and there is no air leak. His weight today is 51.6 kg compared to 51.7 kg yesterday. On examination, his lungs show equal breath sounds on either side, but reduced equally on either side. Percussion is full to the diaphragm. I hear no wheezes, rhonchi or rales. Cardiac examination without murmurs, clicks, gallops or rubs. I cannot feel his PMI. S1, S2 are normal. Abdomen is soft and nontender. Bowel sounds are positive. There is no thyromegaly, no costovertebral angle (CVA) tenderness. Extremities show no pretibial edema, no calf tenderness. No differential swelling of the upper extremities. Skin is warm, dry and perfuse without cyanosis and mottling including nailbeds and knees. Neck is supple. There is no jugular venous distention (JVD). No subcutaneous emphysema. Trachea is midline. Mouth shows mucous membranes to be pink and moist. Lips and commissures without lesions or thrush. Eyes show pupils are equal and reactive. Extraocular motions are intact. Sclerae nonicteric. Neuro: CN II-XII intact with gross motor intact. Gait is not tested. Psychiatric: Awake and alert and oriented times three with appropriate mood and affect and conversational. His white count today is 7.3 with hemoglobin and hematocrit of 12.1 and 37.6 with a platelet count of 273. Electrolytes are essentially normal with BUN and creatinine of 29 and 1.09, glucose of 95 and calcium of 8.9. His chest x-ray shows his lungs fully expanded to the chest wall. Costophrenic angles are sharp and I see no infiltrates. IMPRESSION: 1. Recurrent right pneumothorax, spontaneous. 2. Severe chronic obstructive pulmonary disease (COPD) with bullous disease. 3. Hypertension. 4. Hypothyroidism by laboratory examination. 5. Remote history of pericarditis with pericardiocentesis done at [facility] in [place]. PLAN/DISCUSSION: I will take his chest tube off suction today. Mr. Thayer was asking about the vaccine and I have actively encouraged him to get one. I have spoken with Dr. Pabon of the hospitalist service and she will order a [employer]ah[employer]ah vaccine today. Will take a chest x-ray tomorrow and hopefully the lung will be expanded to the chest wall and I will plan to remove the chest tube at that point in time and plan for discharge on Thursday.
== END 2021-01-21 11:32 | disposition home or self-care (01) | DRG 199 ==
LOC: M ED 11:05 → M ED INP 12:14 → ENRESERV 12:30 → M PCU 12:42
PROVIDERS: ADMIT General Practice; ATTEND Thoracic Surgery (Cardiothoracic Vascular Surgery)
PROC: 0W9930Z Drainage of Right Pleural Cavity with Drainage Device, Percutaneous Approach (ICD-10-PCS; principal; 2021-01-13)
DX: J93.11 Primary spontaneous pneumothorax (principal); E43 Unspecified severe protein-calorie malnutrition; I31.3 Pericardial effusion (noninflammatory); R64 Cachexia; I50.22 Chronic systolic (congestive) heart failure; Z68.1 Body mass index [BMI] 19.9 or less, adult; J43.9 Emphysema, unspecified; E03.9 Hypothyroidism, unspecified; I95.89 Other hypotension; K74.60 Unspecified cirrhosis of liver; Z87.891 Personal history of nicotine dependence; Z87.11 Personal history of peptic ulcer disease; Z79.82 Long term (current) use of aspirin; Z79.899 Other long term (current) drug therapy; Z20.822 Contact with and (suspected) exposure to COVID-19

== ENCOUNTER → 2021-01-26 | Outpatient (CLI) | payer MEDICARE, OTHER | LOC: M LABSMTC 11:20 | PROVIDERS: ATTEND Internal Medicine Cardiovascular Disease | DX: Z11.52 Encounter for screening for COVID-19 (principal) ==

== ENCOUNTER → 2021-02-15 | Outpatient (CLI) | payer MEDICARE, OTHER ==
--- NOTE | 2021-02-15 09:59 | REP ---
INDICATION: EMPHYSEMA, UNSPECIFIED. COMPARISON: 01/21/2021 TECHNIQUE: PA and lateral FINDINGS: The lung ervin are hyperexpanded status quo. There are bullous emphysematous changes status quo. No new parenchymal opacities or pleural effusions have developed. The cardiomediastinal silhouette is stable. The heart is not enlarged. The osseous structures are stable and intact. IMPRESSION: No acute cardiopulmonary disease or significant change compared to the prior exam. <Electronically signed by Asif Ramirez > 02/15/21 [id number]
== END ==
LOC: M PLAIMG 09:43
PROVIDERS: ATTEND Internal Medicine Pulmonary Disease
DX: J43.9 Emphysema, unspecified (principal)

== ENCOUNTER 2021-06-02 21:43 | Inpatient (IN) | payer MEDICARE, OTHER ==
[~2021-06-02] VITALS: Ht 175.3 cm; Wt 53.9 kg
[2021-06-02 23:13] LABS: BASO % 0.2 % (0.0-1.0); HEMATOCRIT 50.8 % (42.0-52.0); HEMOGLOBIN 15.9 g/dl (13.5-17.5); LYMPH # 0.7 10^3/uL (1.5-5.0); LYMPH % 5.9 % (24.0-44.0); MEAN CORPUSCULAR HEMOGLOBIN 30.5 pg (27.0-33.0); MEAN CORPUSCULAR HGB CONC 31.3 g/dl (32.0-36.5); MEAN CORPUSCULAR VOLUME 97.3 fl (80.0-96.0); MONO # 0.5 10^3/uL (0.0-0.8); MONO % 4.3 % (2.0-8.0); NEUTROPHILS # 10.9 10^3/uL (1.5-8.5); NEUTROPHILS % 88.8 % (36.0-66.0); PLATELET COUNT, AUTOMATED 466 10^3/uL (150-450); RED BLOOD COUNT 5.22 10^6/uL (4.30-6.10); WHITE BLOOD COUNT 12.3 10^3/uL (4.0-10.0)
[2021-06-02] MEDS ORDERED: cefTRIAXone SOD 2 GM in D5W MINI-BAG PLUS 50 ML IV ONE (23:20)
[2021-06-02] MEDS ORDERED: HOME MED LIST COMPLETE! XX SCH (23:35)
[2021-06-02 23:39] LABS: ALBUMIN 4.9 GM/DL (3.2-5.2); BILIRUBIN,DIRECT 0.6 MG/DL (0.0-0.2); BILIRUBIN,TOTAL 1.3 MG/DL (0.2-1.0); CALCIUM LEVEL 10.5 MG/DL (8.8-10.2); CREATININE FOR GFR 1.47 MG/DL (0.70-1.30); POTASSIUM SERUM 5.8 MEQ/L (3.5-5.1); THYROID STIMULATING HORMONE 9.74 uIU/ML (0.358-3.740); TOTAL PROTEIN 9.7 GM/DL (6.4-8.2)
[2021-06-03] VITALS (25 sets, daily range): BP systolic 84–102; BP diastolic 52–72
[2021-06-03] MEDS ORDERED: LIDOCAINE 1% MDV 20ML VIAL XX ONE
[2021-06-03] MEDS ORDERED: MIDAZOLAM 5MG/ML 1ML VIAL (J2250 PER 1MG) As Ordered ONE (00:27)
[2021-06-03] MEDS ORDERED: LIDOCAINE 1% MDV 20ML VIAL As Ordered ONE (00:33)
[2021-06-03] MEDS ORDERED: AZITHROMYCIN INJ 500 MG, VIAL MATE ADAPTER 1 EACH in NS 250 ML IV STA (00:43)
[2021-06-03] MEDS ORDERED: methylPREDNISolone 125MG 2ML VIAL IV STA (00:43)
[2021-06-03] MEDS ORDERED: MIDAZOLAM INJ 2MG/2ML VIAL (J2250 PER 1MG) IV STA ×2 (00:45→00:48)
[2021-06-03] MEDS ORDERED: ALBUTEROL SULFATE 2.5 MG/0.5 ML INH NEB SOLN NEB PRN (00:45)
[2021-06-03] MEDS ORDERED: NS 500 ML IV ONE (01:05)
[2021-06-03] MEDS ORDERED: MORPHINE 2 MG/ML 1ML VIAL (J2270) IV PRN (01:05)
[2021-06-03] MEDS ORDERED: NORCO, ANEXSIA 5/325MG TABLET (HYDROcodone/ACETAMINOPHEN) PO PRN (01:05)
[2021-06-03] MEDS ORDERED: ACETAMINOPHEN TAB 650MG DOSE (2X325MG) PO PRN (01:05)
[2021-06-03] MEDS: NS 1,000 ML IV SCH ×4 (01:26→22:48)
[2021-06-03] MEDS ORDERED: NS 1,500 ML IV ONE ×2 (02:20→02:25)
[2021-06-03] MEDS: IPRATROPIUM 0.5MG/ALBUTEROL 2.5MG INH SOL UD 3ML (DUONEB) NEB SCH ×4 (05:51→19:47)
[2021-06-03 13:00] LABS: BASO % 0.1 % (0.0-1.0); HEMATOCRIT 36.8 % (42.0-52.0); LYMPH # 0.7 10^3/uL (1.5-5.0); LYMPH % 7.1 % (24.0-44.0); MEAN CORPUSCULAR HEMOGLOBIN 31.1 pg (27.0-33.0); MEAN CORPUSCULAR HGB CONC 32.1 g/dl (32.0-36.5); MEAN CORPUSCULAR VOLUME 96.8 fl (80.0-96.0); MONO # 0.7 10^3/uL (0.0-0.8); MONO % 6.8 % (2.0-8.0); NEUTROPHILS # 8.6 10^3/uL (1.5-8.5); WHITE BLOOD COUNT 10.1 10^3/uL (4.0-10.0)
[2021-06-03 13:07] LABS: HEMOGLOBIN 11.8 g/dl (13.5-17.5)
[2021-06-03 13:08] LABS: PLATELET COUNT, AUTOMATED 259 10^3/uL (150-450)
[2021-06-03 13:27] LABS: BLOOD UREA NITROGEN 36 MG/DL (7-18); CALCIUM LEVEL 8.4 MG/DL (8.8-10.2); CARBON DIOXIDE LEVEL 18 MEQ/L (21-32); CHLORIDE LEVEL 112 MEQ/L (98-107); CREATININE FOR GFR 1.03 MG/DL (0.70-1.30); GLOMERULAR FILTRATION RATE > 60.0 (>49); GLUCOSE, FASTING 157 MG/DL (70-100); POTASSIUM SERUM 4.4 MEQ/L (3.5-5.1); SODIUM LEVEL 141 MEQ/L (136-145)
[2021-06-03] MEDS: HEPARIN SOD (PORCINE) 5000UNITS/ML 1ML VIAL/SYRINGE SQ SCH (17:34)
[2021-06-03] MEDS ORDERED: COMBIVENT RESPIMAT 100-20MCG INHALER 4GM INH PRN (18:30)
[2021-06-03] MEDS: DOXYCYCLINE HYCLATE 100MG TABLET PO SCH (20:50)
[2021-06-03] MEDS: METOPROLOL TART 12.5 MG PER 1/2 TAB PO SCH (20:51)
[2021-06-03] MEDS ORDERED: AZITHROMYCIN 250MG TABLET PO SCH (21:00)
[2021-06-04] VITALS (9 sets, daily range): BP systolic 87–110; BP diastolic 55–71
[2021-06-04] MEDS ORDERED: cefTRIAXone SOD 1 GM in D5W MINI-BAG PLUS 50 ML IV SCH ×2
[2021-06-04] MEDS: IPRATROPIUM 0.5MG/ALBUTEROL 2.5MG INH SOL UD 3ML (DUONEB) NEB SCH ×4 (00:28→19:52)
[2021-06-04] MEDS ORDERED: AZITHROMYCIN INJ 500 MG, VIAL MATE ADAPTER 1 EACH in NS 250 ML IV SCH (02:00)
[2021-06-04] MEDS: HEPARIN SOD (PORCINE) 5000UNITS/ML 1ML VIAL/SYRINGE SQ SCH ×3 (02:01→18:07)
[2021-06-04 05:45] LABS: BLOOD UREA NITROGEN 37 MG/DL (7-18); CALCIUM LEVEL 8.4 MG/DL (8.8-10.2); CARBON DIOXIDE LEVEL 21 MEQ/L (21-32); CHLORIDE LEVEL 117 MEQ/L (98-107); CREATININE FOR GFR 1.17 MG/DL (0.70-1.30); GLOMERULAR FILTRATION RATE > 60.0 (>49); GLUCOSE, FASTING 99 MG/DL (70-100); POTASSIUM SERUM 3.9 MEQ/L (3.5-5.1); SODIUM LEVEL 144 MEQ/L (136-145)
[2021-06-04] MEDS: METOPROLOL TART 12.5 MG PER 1/2 TAB PO SCH ×3 (08:46→21:44)
[2021-06-04] MEDS: DOXYCYCLINE HYCLATE 100MG TABLET PO SCH (08:59)
[2021-06-04] MEDS: ASPIRIN 81 MG CHEW TABLET PO SCH (08:59)
[2021-06-04 09:18] LABS: BASO % 0.1 % (0.0-1.0); EOS % 0.1 % (0.0-3.0); HEMATOCRIT 34.4 % (42.0-52.0); HEMOGLOBIN 11.2 g/dl (13.5-17.5); LYMPH # 1.3 10^3/uL (1.5-5.0); LYMPH % 9.9 % (24.0-44.0); MEAN CORPUSCULAR HEMOGLOBIN 31.3 pg (27.0-33.0); MEAN CORPUSCULAR HGB CONC 32.6 g/dl (32.0-36.5); MEAN CORPUSCULAR VOLUME 96.1 fl (80.0-96.0); MONO # 1.3 10^3/uL (0.0-0.8); MONO % 10.2 % (2.0-8.0); NEUTROPHILS # 10.4 10^3/uL (1.5-8.5); NEUTROPHILS % 79.2 % (36.0-66.0); PLATELET COUNT, AUTOMATED 263 10^3/uL (150-450); RED BLOOD COUNT 3.58 10^6/uL (4.30-6.10); WHITE BLOOD COUNT 13.1 10^3/uL (4.0-10.0)
[2021-06-04] MEDS: LevoFLOXacin 750 MG TABLET PO SCH (14:08)
[2021-06-04 16:09] LABS: MYCOPLASMA PNEUMONIAE IgG 480 U/mL (0-99); MYCOPLASMA PNEUMONIAE IgM <770 U/mL (0-769)
[2021-06-05] VITALS: BP 108/69
[2021-06-05] MEDS: IPRATROPIUM 0.5MG/ALBUTEROL 2.5MG INH SOL UD 3ML (DUONEB) NEB SCH ×4 (00:23→20:00)
[2021-06-05] MEDS: HEPARIN SOD (PORCINE) 5000UNITS/ML 1ML VIAL/SYRINGE SQ SCH ×3 (03:16→17:46)
[2021-06-05 04:00] VITALS: BP 112/79
[2021-06-05 04:49] LABS: BASO % 0.3 % (0.0-1.0); EOS # 0.1 10^3/uL (0.0-0.5); EOS % 0.8 % (0.0-3.0); HEMATOCRIT 34.4 % (42.0-52.0); LYMPH # 1.6 10^3/uL (1.5-5.0); MEAN CORPUSCULAR HEMOGLOBIN 30.7 pg (27.0-33.0); MEAN CORPUSCULAR VOLUME 96.1 fl (80.0-96.0); MONO # 1.1 10^3/uL (0.0-0.8); MONO % 11.4 % (2.0-8.0); NEUTROPHILS # 6.5 10^3/uL (1.5-8.5); NEUTROPHILS % 69.8 % (36.0-66.0); PLATELET COUNT, AUTOMATED 289 10^3/uL (150-450); RED BLOOD COUNT 3.58 10^6/uL (4.30-6.10); WHITE BLOOD COUNT 9.2 10^3/uL (4.0-10.0)
[2021-06-05 05:21] LABS: BLOOD UREA NITROGEN 33 MG/DL (7-18); CALCIUM LEVEL 8.6 MG/DL (8.8-10.2); CARBON DIOXIDE LEVEL 23 MEQ/L (21-32); CHLORIDE LEVEL 115 MEQ/L (98-107); CREATININE FOR GFR 1.13 MG/DL (0.70-1.30); GLOMERULAR FILTRATION RATE > 60.0 (>49); GLUCOSE, FASTING 90 MG/DL (70-100); POTASSIUM SERUM 3.9 MEQ/L (3.5-5.1); SODIUM LEVEL 144 MEQ/L (136-145)
[2021-06-05 08:15] VITALS: BP 107/68
[2021-06-05] MEDS: ASPIRIN 81 MG CHEW TABLET PO SCH (08:25)
[2021-06-05] MEDS: METOPROLOL TART 12.5 MG PER 1/2 TAB PO SCH ×2 (08:26→20:18)
[2021-06-05 12:41] VITALS: BP 102/74
[2021-06-05 16:08] LABS: BODY FLUID CULTURE Not indicated. (.); LEGIONELLA ANTIGEN URINE Negative (Negative); ORGANISM ID Not indicated. (.); SPECIMEN SOURCE Urine (.); URINE STREP PNEUMONIAE ANTIGEN Negative (Negative)
[2021-06-05 16:44] VITALS: BP 102/65
[2021-06-05 20:00] VITALS: BP 95/63
[2021-06-06] VITALS: BP 99/62
[2021-06-06] MEDS: IPRATROPIUM 0.5MG/ALBUTEROL 2.5MG INH SOL UD 3ML (DUONEB) NEB SCH ×3 (00:10→13:34)
[2021-06-06] MEDS: HEPARIN SOD (PORCINE) 5000UNITS/ML 1ML VIAL/SYRINGE SQ SCH ×2 (02:22→08:22)
[2021-06-06 04:00] VITALS: BP 99/68
[2021-06-06 06:54] LABS: BASO # 0.1 10^3/uL (0.0-0.2); BASO % 0.6 % (0.0-1.0); EOS # 0.1 10^3/uL (0.0-0.5); EOS % 1.8 % (0.0-3.0); HEMATOCRIT 37.5 % (42.0-52.0); HEMATOCRIT 37.9 % (42.0-52.0); HEMOGLOBIN 12.1 g/dl (13.5-17.5); LYMPH # 1.8 10^3/uL (1.5-5.0); LYMPH % 22.6 % (24.0-44.0); MEAN CORPUSCULAR HEMOGLOBIN 30.7 pg (27.0-33.0); MEAN CORPUSCULAR HEMOGLOBIN 30.9 pg (27.0-33.0); MEAN CORPUSCULAR HGB CONC 31.9 g/dl (32.0-36.5); MEAN CORPUSCULAR VOLUME 95.9 fl (80.0-96.0); MEAN CORPUSCULAR VOLUME 96.7 fl (80.0-96.0); MONO # 0.8 10^3/uL (0.0-0.8); MONO % 10.6 % (2.0-8.0); NEUTROPHILS # 4.9 10^3/uL (1.5-8.5); NEUTROPHILS % 63.5 % (36.0-66.0); PLATELET COUNT, AUTOMATED 296 10^3/uL (150-450); PLATELET COUNT, AUTOMATED 317 10^3/uL (150-450); RED BLOOD COUNT 3.91 10^6/uL (4.30-6.10); RED BLOOD COUNT 3.92 10^6/uL (4.30-6.10); WHITE BLOOD COUNT 7.7 10^3/uL (4.0-10.0)
[2021-06-06 07:13] LABS: BLOOD UREA NITROGEN 34 MG/DL (7-18); CALCIUM LEVEL 8.6 MG/DL (8.8-10.2); CARBON DIOXIDE LEVEL 24 MEQ/L (21-32); CHLORIDE LEVEL 116 MEQ/L (98-107); CREATININE FOR GFR 1.12 MG/DL (0.70-1.30); GLOMERULAR FILTRATION RATE > 60.0 (>49); GLUCOSE, FASTING 97 MG/DL (70-100); POTASSIUM SERUM 4.1 MEQ/L (3.5-5.1); SODIUM LEVEL 147 MEQ/L (136-145)
[2021-06-06 08:07] VITALS: BP 101/68
[2021-06-06] MEDS: ASPIRIN 81 MG CHEW TABLET PO SCH (08:21)
[2021-06-06] MEDS: LevoFLOXacin 750 MG TABLET PO SCH (08:21)
[2021-06-06 08:22] VITALS: BP 110/71
[2021-06-06] MEDS: METOPROLOL TART 12.5 MG PER 1/2 TAB PO SCH (08:22)
[2021-06-06] MEDS ORDERED: METO1TAB32 PO (11:48)
[2021-06-06 12:00] VITALS: BP 105/74
[2021-06-07] MEDS ORDERED: LevoFLOXacin 750 MG TABLET PO SCH (06:00)
[2021-06-07] MEDS ORDERED: VITA200016 PO (10:41)
== END 2021-06-06 14:00 | disposition home or self-care (01) | DRG 871 ==
LOC: M ED 21:43 → M ED INP 06-03 02:16 → ENRESERV 06-03 02:52 → M PCU 06-03 03:54
PROVIDERS: ADMIT Internal Medicine; ATTEND Internal Medicine
PROC: 0W9930Z Drainage of Right Pleural Cavity with Drainage Device, Percutaneous Approach (ICD-10-PCS; principal; 2021-06-03)
DX: A41.9 Sepsis, unspecified organism (principal); J18.9 Pneumonia, unspecified organism; J96.01 Acute respiratory failure with hypoxia; J93.83 Other pneumothorax; J44.0 Chronic obstructive pulmonary disease with (acute) lower respiratory infection; J44.1 Chronic obstructive pulmonary disease with (acute) exacerbation; J98.11 Atelectasis; N17.9 Acute kidney failure, unspecified; I47.2 Ventricular tachycardia; I27.20 Pulmonary hypertension, unspecified; R94.6 Abnormal results of thyroid function studies; I51.89 Other ill-defined heart diseases; K74.60 Unspecified cirrhosis of liver; Z20.822 Contact with and (suspected) exposure to COVID-19; Z79.82 Long term (current) use of aspirin; Z79.899 Other long term (current) drug therapy; Z87.891 Personal history of nicotine dependence; E87.5 Hyperkalemia; Z87.11 Personal history of peptic ulcer disease

== ENCOUNTER 2021-06-07 08:53 | Emergency (ER) | payer MEDICARE, OTHER ==
[~2021-06-07] VITALS: Ht 175.3 cm; Wt 86.4 kg
[~2021-06-07 08:53] MED LIST changes: +METO1TAB32 PO
[2021-06-07] MEDS ORDERED: VITA200016 PO (10:41)
[2021-06-07 17:30] VITALS: BP 105/76
== END 2021-06-07 18:36 | disposition short-term general hospital (02) ==
LOC: M ED 08:53
DX: J44.1 Chronic obstructive pulmonary disease with (acute) exacerbation (principal); J93.11 Primary spontaneous pneumothorax; R00.0 Tachycardia, unspecified; I10 Essential (primary) hypertension; Z79.82 Long term (current) use of aspirin; Z79.899 Other long term (current) drug therapy; Z87.891 Personal history of nicotine dependence
CPT/HCPCS: 71045; 71046; 77012; 80048; 80076; 82803; 83605; 83880; 84443; 84484; 85025; 87040; 87798; 93005; 93041; 94640; 96374; 99285; J2930

== ENCOUNTER → 2021-07-10 | Outpatient (CLI) | payer MEDICARE, OTHER ==
[~2021-07-10] MED LIST changes: +VITA200016 PO
== END ==
LOC: M RAD 09:26
PROVIDERS: ATTEND Surgery
DX: J93.83 Other pneumothorax (principal)

== ENCOUNTER → 2022-01-08 | Outpatient (REF) | payer MEDICARE, OTHER ==
[2022-01-08 17:36] LABS: HEMATOCRIT 44.3 % (42.0-52.0); HEMOGLOBIN 14.2 g/dl (13.5-17.5); MEAN CORPUSCULAR HEMOGLOBIN 31.1 pg (27.0-33.0); MEAN CORPUSCULAR HGB CONC 32.1 g/dl (32.0-36.5); MEAN CORPUSCULAR VOLUME 97.1 fl (80.0-96.0); PLATELET COUNT, AUTOMATED 216 10^3/uL (150-450); RED BLOOD COUNT 4.56 10^6/uL (4.30-6.10)
[2022-01-08 18:06] LABS: CALCIUM LEVEL 9.7 MG/DL (8.8-10.2); CREATININE FOR GFR 1.4 MG/DL (0.70-1.30); POTASSIUM SERUM 4.4 MEQ/L (3.5-5.1)
[2022-01-08 18:07] LABS: ALBUMIN 3.6 GM/DL (3.2-5.2); BILIRUBIN,TOTAL 0.5 MG/DL (0.2-1.0); TOTAL PROTEIN 7.1 GM/DL (6.4-8.2)
== END ==
LOC: M SFHCCLAY 14:06
PROVIDERS: ATTEND Nurse Practitioner Family
DX: I48.0 Paroxysmal atrial fibrillation (principal); K74.60 Unspecified cirrhosis of liver; E78.00 Pure hypercholesterolemia, unspecified

== ENCOUNTER → 2022-01-27 | Outpatient (CLI) | payer MEDICARE, OTHER | LOC: M RAD 08:02 | PROVIDERS: ATTEND Nurse Practitioner Family | DX: R74.8 Abnormal levels of other serum enzymes (principal) ==

== ENCOUNTER → 2022-02-04 | Outpatient (CLI) | payer MEDICARE, OTHER | LOC: M PLAIMG 12:48 | PROVIDERS: ATTEND Internal Medicine Pulmonary Disease | DX: R93.89 Abnormal findings on diagnostic imaging of other specified body structures (principal) ==

== ENCOUNTER → 2022-02-13 | Outpatient (CLI) | payer MEDICARE, OTHER ==
[2022-02-13 13:12] LABS: BLOOD UREA NITROGEN 36 MG/DL (7-18); CALCIUM LEVEL 9.5 MG/DL (8.8-10.2); CARBON DIOXIDE LEVEL 26 MEQ/L (21-32); CHLORIDE LEVEL 106 MEQ/L (98-107); CREATININE FOR GFR 1.27 MG/DL (0.70-1.30); GLOMERULAR FILTRATION RATE > 60.0 (>49); GLUCOSE, FASTING 95 MG/DL (70-100); POTASSIUM SERUM 4.6 MEQ/L (3.5-5.1); SODIUM LEVEL 138 MEQ/L (136-145)
== END ==
LOC: M LAB 12:05
PROVIDERS: ATTEND Nurse Practitioner Family
DX: R79.89 Other specified abnormal findings of blood chemistry (principal)

== ENCOUNTER → 2022-07-15 | Outpatient (REF) | payer MEDICARE, OTHER ==
[2022-07-15 18:30] LABS: CHOLESTEROL RISK RATIO 5.3 (<5); HDL CHOLESTEROL 35.8 MG/DL (>40); LDL CHOLESTEROL 122.4 MG/DL (<100)
== END ==
LOC: M SFHCCLAY 13:35
PROVIDERS: ATTEND Nurse Practitioner Family
DX: E78.5 Hyperlipidemia, unspecified (principal); R74.8 Abnormal levels of other serum enzymes; R91.1 Solitary pulmonary nodule; I48.0 Paroxysmal atrial fibrillation; I50.20 Unspecified systolic (congestive) heart failure; Z12.11 Encounter for screening for malignant neoplasm of colon; Z12.12 Encounter for screening for malignant neoplasm of rectum; Z87.09 Personal history of other diseases of the respiratory system
CPT/HCPCS: 80061; G0463

== ENCOUNTER 2022-10-05 14:38 | Inpatient (IN) | payer MEDICARE, OTHER ==
[~2022-10-05] VITALS: Ht 175.3 cm; Wt 57.2 kg
[2022-10-05 15:37] LABS: VENOUS BASE EXCESS -2.8 (-2.0-2.0); VENOUS HCO3 21.5 MMOL/L (23.0-27.0); VENOUS O2 SATURATION 82.7 % (60.0-80.0); VENOUS PARTIAL PRESSURE CO2 36.1 mmHg (38.0-50.0); VENOUS PARTIAL PRESSURE O2 49.7 mmHg (30.0-50.0); VENOUS PH 7.393 UNITS (7.330-7.430); VENOUS STANDARD HCO3 21.8 MMOL/L; VENOUS TOTAL CO2 22.6 MMOL/L (24.0-28.0)
[2022-10-05 15:48] LABS: BASO # 0.1 10^3/uL (0.0-0.2); BASO % 1.1 % (0.0-1.0); EOS # 0.1 10^3/uL (0.0-0.5); EOS % 1.4 % (0.0-3.0); HEMATOCRIT 41.5 % (42.0-52.0); HEMOGLOBIN 12.9 g/dl (13.5-17.5); LYMPH # 1.3 10^3/uL (1.5-5.0); LYMPH % 14.1 % (24.0-44.0); MEAN CORPUSCULAR HEMOGLOBIN 27.7 pg (27.0-33.0); MEAN CORPUSCULAR HGB CONC 31.1 g/dl (32.0-36.5); MEAN CORPUSCULAR VOLUME 89.1 fl (80.0-96.0); MONO % 10.8 % (2.0-8.0); NEUTROPHILS # 6.4 10^3/uL (1.5-8.5); NEUTROPHILS % 71.9 % (36.0-66.0); PLATELET COUNT, AUTOMATED 175 10^3/uL (150-450); RED BLOOD COUNT 4.66 10^6/uL (4.30-6.10); WHITE BLOOD COUNT 8.9 10^3/uL (4.0-10.0)
[2022-10-05 15:55] LABS: INR 1.12; PROTHROMBIN TIME 14.6 SECONDS (12.5-14.5)
[2022-10-05] MEDS: METOPROLOL 5 MG/5 ML VIAL IV SCH ×3 (15:57→16:28)
[2022-10-05 16:09] LABS: ALBUMIN 3.7 G/DL (3.2-5.2); BILIRUBIN,DIRECT 0.3 MG/DL (<0.4); BILIRUBIN,TOTAL 0.9 MG/DL (0.3-1.2); CALCIUM LEVEL 9.2 MG/DL (8.3-10.6); CK-MB VALUE MASS 5.5 NG/ML (<3.6); CREATININE FOR GFR 1.68 MG/DL (0.70-1.30); GLOMERULAR FILTRATION RATE 43.6 (>49); POTASSIUM SERUM 4.8 MMOL/L (3.5-5.1); TOTAL PROTEIN 7.1 G/DL (5.7-8.2)
[2022-10-05 16:11] LABS: MB/CK RELATIVE INDEX 4.91 (< OR =4); THYROID STIMULATING HORMONE 10.141 uIU/ML (0.55-4.78)
[2022-10-05] MEDS ORDERED: NS 500 ML IV ONE (16:35)
[2022-10-05 17:04] LABS: CK-MB VALUE MASS 4.7 NG/ML (<3.6)
[2022-10-05 17:08] LABS: MB/CK RELATIVE INDEX 4.94 (< OR =4)
[2022-10-05] MEDS ORDERED: IPRATROPIUM 0.5MG/ALBUTEROL 2.5MG INH SOL UD 3ML (DUONEB) NEB PRN (18:00)
[2022-10-05] MEDS ORDERED: NS 1,000 ML IV SCH (18:45)
[2022-10-05] MEDS ORDERED: IPRA6SP NARES (18:56)
[2022-10-05] MEDS ORDERED: FLUT1BLS8 PO (18:56)
[2022-10-05] MEDS ORDERED: JARD1TAB PO (18:56)
[2022-10-05] MEDS ORDERED: D3 U1000 PO (18:56)
[2022-10-05] MEDS ORDERED: VENTAER INH (18:56)
[2022-10-05] MEDS ORDERED: MULT-90 PO (18:58)
[2022-10-05] MEDS ORDERED: HOME MED LIST COMPLETE! XX SCH (19:00)
[2022-10-05 19:01] LABS: FREE T4 1.19 NG/DL (0.89-1.76); THYROXINE (T4) 10.3 UG/DL (4.5-10.9)
[2022-10-05] MEDS: IPRATROPIUM 0.5MG/ALBUTEROL 2.5MG INH SOL UD 3ML (DUONEB) NEB SCH (20:08)
[2022-10-05 20:55] VITALS: BP 91/72
[2022-10-06] VITALS (7 sets, daily range): BP systolic 100–117; BP diastolic 67–78; PULSE 113
[2022-10-06] MEDS: IPRATROPIUM 0.5MG/ALBUTEROL 2.5MG INH SOL UD 3ML (DUONEB) NEB SCH ×4 (02:00→19:46)
[2022-10-06 04:50] LABS: HEMATOCRIT 39.1 % (42.0-52.0); HEMOGLOBIN 12.2 g/dl (13.5-17.5); MEAN CORPUSCULAR HEMOGLOBIN 27.7 pg (27.0-33.0); MEAN CORPUSCULAR HGB CONC 31.2 g/dl (32.0-36.5); MEAN CORPUSCULAR VOLUME 88.7 fl (80.0-96.0); PLATELET COUNT, AUTOMATED 144 10^3/uL (150-450); RED BLOOD COUNT 4.41 10^6/uL (4.30-6.10); WHITE BLOOD COUNT 7.2 10^3/uL (4.0-10.0)
[2022-10-06 05:14] LABS: CALCIUM LEVEL 8.4 MG/DL (8.3-10.6); CREATININE FOR GFR 1.67 MG/DL (0.70-1.30); GLOMERULAR FILTRATION RATE 43.9 (>49); MAGNESIUM LEVEL 2.2 MG/DL (1.8-2.4); POTASSIUM SERUM 4.6 MMOL/L (3.5-5.1)
[2022-10-06] MEDS ORDERED: ENOXAPARIN 30MG/0.3ML SYRINGE (J1650 PER 10MG) SC SCH (09:00)
[2022-10-06] MEDS: METOPROLOL SUCC *XL* 25MG TAB (TopROL *XL*) PO SCH (10:18)
[2022-10-06] MEDS ORDERED: DIGOXIN INJ 0.5 MG/2 ML AMP IV STA (16:58)
[2022-10-06] MEDS: APIXABAN 2.5 MG TAB (ELIQUIS) PO SCH (20:19)
[2022-10-07] VITALS (7 sets, daily range): BP systolic 96–114; BP diastolic 58–78
[2022-10-07] MEDS: IPRATROPIUM 0.5MG/ALBUTEROL 2.5MG INH SOL UD 3ML (DUONEB) NEB SCH ×4 (02:00→19:45)
[2022-10-07] MEDS ORDERED: DIGOXIN INJ 0.5 MG/2 ML AMP IV ONE (07:00)
[2022-10-07] MEDS: APIXABAN 2.5 MG TAB (ELIQUIS) PO SCH ×2 (08:10→20:36)
[2022-10-07] MEDS: METOPROLOL SUCC *XL* 25MG TAB (TopROL *XL*) PO SCH (08:10)
[2022-10-07] MEDS: FUROSEMIDE 20 MG TAB PO SCH (08:10)
[2022-10-07 08:27] LABS: BASO # 0.1 10^3/uL (0.0-0.2); BASO % 0.9 % (0.0-1.0); EOS # 0.2 10^3/uL (0.0-0.5); EOS % 2.3 % (0.0-3.0); HEMATOCRIT 38.1 % (42.0-52.0); HEMOGLOBIN 11.9 g/dl (13.5-17.5); LYMPH # 1.3 10^3/uL (1.5-5.0); LYMPH % 16.8 % (24.0-44.0); MEAN CORPUSCULAR HGB CONC 31.2 g/dl (32.0-36.5); MEAN CORPUSCULAR VOLUME 89.6 fl (80.0-96.0); MONO # 0.8 10^3/uL (0.0-0.8); NEUTROPHILS # 5.4 10^3/uL (1.5-8.5); NEUTROPHILS % 69.4 % (36.0-66.0); PLATELET COUNT, AUTOMATED 125 10^3/uL (150-450); RED BLOOD COUNT 4.25 10^6/uL (4.30-6.10); WHITE BLOOD COUNT 7.7 10^3/uL (4.0-10.0)
[2022-10-07 08:53] LABS: CALCIUM LEVEL 8.4 MG/DL (8.3-10.6); CREATININE FOR GFR 1.52 MG/DL (0.70-1.30); GLOMERULAR FILTRATION RATE 48.9 (>49); POTASSIUM SERUM 4.8 MMOL/L (3.5-5.1)
[2022-10-07] MEDS ORDERED: METOPROLOL TART 25 MG TABLET PO ONE (11:10)
[2022-10-07] MEDS ORDERED: ELIQ2.5T PO (12:18)
[2022-10-08] MEDS: IPRATROPIUM 0.5MG/ALBUTEROL 2.5MG INH SOL UD 3ML (DUONEB) NEB SCH ×2 (02:00→07:24)
[2022-10-08 05:09] VITALS: BP 98/69
[2022-10-08 05:58] LABS: HEMATOCRIT 40.5 % (42.0-52.0); HEMOGLOBIN 12.5 g/dl (13.5-17.5); MEAN CORPUSCULAR HEMOGLOBIN 27.8 pg (27.0-33.0); MEAN CORPUSCULAR HGB CONC 30.9 g/dl (32.0-36.5); PLATELET COUNT, AUTOMATED 165 10^3/uL (150-450); WHITE BLOOD COUNT 9.6 10^3/uL (4.0-10.0)
[2022-10-08] MEDS ORDERED: DIGOXIN INJ 0.5 MG/2 ML AMP IV STA (06:56)
[2022-10-08 07:21] LABS: CALCIUM LEVEL 8.2 MG/DL (8.3-10.6); CREATININE FOR GFR 1.56 MG/DL (0.70-1.30); GLOMERULAR FILTRATION RATE 47.5 (>49); POTASSIUM SERUM 4.8 MMOL/L (3.5-5.1)
[2022-10-08 07:24] VITALS: BP 96/67
[2022-10-08 08:00] VITALS: BP 96/62
[2022-10-08] MEDS ORDERED: METO1TAB7 PO (08:25)
[2022-10-08] MEDS ORDERED: FURO20TA2 PO (08:25)
[2022-10-08] MEDS ORDERED: METO25TA PO (08:27)
[2022-10-08] MEDS ORDERED: PRED20TA PO (08:27)
[2022-10-08] MEDS ORDERED: ALBU8.5H INH (08:27)
[2022-10-08 08:41] VITALS: BP 97/62
[2022-10-08] MEDS: APIXABAN 2.5 MG TAB (ELIQUIS) PO SCH (08:41)
[2022-10-08 08:42] VITALS: BP 97/62
[2022-10-08] MEDS: FUROSEMIDE 20 MG TAB PO SCH (08:42)
[2022-10-08] MEDS ORDERED: METOPROLOL SUCC (TopROL XL) 50MG **XL** TAB PO SCH (09:00)
[2022-10-09 15:09] LABS: BODY FLUID CULTURE Not indicated. (.); LEGIONELLA ANTIGEN URINE Negative (Negative); ORGANISM ID Not indicated. (.); SPECIMEN SOURCE Urine (.); URINE STREP PNEUMONIAE ANTIGEN Negative (Negative)
== END 2022-10-08 10:02 | disposition home health service (06) | DRG 309 ==
LOC: M ED 14:38 → M ED INP 17:57 → M PCU 20:52
PROVIDERS: ADMIT Internal Medicine; ATTEND Internal Medicine
PROC: B246ZZZ Ultrasonography of Right and Left Heart (ICD-10-PCS; principal; 2022-10-06)
DX: I48.0 Paroxysmal atrial fibrillation (principal); I50.22 Chronic systolic (congestive) heart failure; N17.9 Acute kidney failure, unspecified; I31.39 Other pericardial effusion (noninflammatory); R18.8 Other ascites; K76.6 Portal hypertension; K74.69 Other cirrhosis of liver; J44.9 Chronic obstructive pulmonary disease, unspecified; Z87.891 Personal history of nicotine dependence; I42.8 Other cardiomyopathies; Z79.82 Long term (current) use of aspirin; Z79.899 Other long term (current) drug therapy; N26.1 Atrophy of kidney (terminal); I78.1 Nevus, non-neoplastic; I70.0 Atherosclerosis of aorta; I25.10 Atherosclerotic heart disease of native coronary artery without angina pectoris; I27.20 Pulmonary hypertension, unspecified; D69.6 Thrombocytopenia, unspecified

== ENCOUNTER → 2022-11-12 | Outpatient (CLI) | payer MEDICARE, OTHER ==
[~2022-11-12] MED LIST changes: +D3 U1000 PO; +ELIQ2.5T PO; +FLUT1BLS8 PO; +FURO20TA2 PO; +IPRA6SP NARES; +JARD1TAB PO; +METO1TAB7 PO; +METO25TA PO; +MULT-90 PO; +PRED20TA PO; +VENTAER INH
== END ==
LOC: M RAD 12:57
PROVIDERS: ATTEND Internal Medicine Pulmonary Disease
DX: I50.22 Chronic systolic (congestive) heart failure (principal)

== ENCOUNTER → 2022-11-21 | Outpatient (REF) | payer MEDICARE, OTHER ==
[2022-11-21 17:22] LABS: BASO # 0.1 10^3/uL (0.0-0.2); BASO % 0.5 % (0.0-1.0); EOS # 0.2 10^3/uL (0.0-0.5); EOS % 1.7 % (0.0-3.0); HEMATOCRIT 49.2 % (42.0-52.0); LYMPH % 8.4 % (24.0-44.0); MEAN CORPUSCULAR HEMOGLOBIN 26.8 pg (27.0-33.0); MEAN CORPUSCULAR HGB CONC 30.5 g/dl (32.0-36.5); MONO # 0.8 10^3/uL (0.0-0.8); MONO % 7.4 % (2.0-8.0); NEUTROPHILS # 9.3 10^3/uL (1.5-8.5); RED BLOOD COUNT 5.59 10^6/uL (4.30-6.10); WHITE BLOOD COUNT 11.4 10^3/uL (4.0-10.0)
[2022-11-21 17:51] LABS: NEUTROPHILS % 80.9 % (36.0-66.0)
[2022-11-21 17:56] LABS: ALBUMIN 3.4 G/DL (3.2-5.2); ALKALINE PHOSPHATASE 118 U/L (46-116); ALT/SGPT 50 U/L (7.0-40); AST/SGOT 41 U/L (<34); BILIRUBIN,TOTAL 1.1 MG/DL (0.3-1.2); BLOOD UREA NITROGEN 71 MG/DL (9-23); CALCIUM LEVEL 9.2 MG/DL (8.3-10.6); CARBON DIOXIDE LEVEL 21 MMOL/L (20-31); CHLORIDE LEVEL 106 MMOL/L (98-107); CREATININE FOR GFR 1.25 MG/DL (0.70-1.30); GLOMERULAR FILTRATION RATE > 60.0 (>49); GLUCOSE, FASTING 77 MG/DL (74-106); MAGNESIUM LEVEL 2.4 MG/DL (1.8-2.4); POTASSIUM SERUM 4.9 MMOL/L (3.5-5.1); SODIUM LEVEL 141 MMOL/L (136-145); TOTAL PROTEIN 6.9 G/DL (5.7-8.2)
[2022-11-21 17:58] LABS: THYROID STIMULATING HORMONE 8.707 uIU/ML (0.55-4.78); VITAMIN B12 LEVEL 404 PG/ML (211-911)
== END ==
LOC: M SFHCCLAY 11:09
PROVIDERS: ATTEND Physician Assistant
DX: F32.A Depression, unspecified (principal); R25.2 Cramp and spasm

== ENCOUNTER → 2022-12-05 | Outpatient (REF) | payer MEDICARE, OTHER ==
[2022-12-05 18:02] LABS: BASO # 0.1 10^3/uL (0.0-0.2); EOS # 0.1 10^3/uL (0.0-0.5); EOS % 0.8 % (0.0-3.0); HEMATOCRIT 46.6 % (42.0-52.0); HEMOGLOBIN 14.5 g/dl (13.5-17.5); LYMPH # 1.1 10^3/uL (1.5-5.0); LYMPH % 8.5 % (24.0-44.0); MEAN CORPUSCULAR HEMOGLOBIN 27.3 pg (27.0-33.0); MEAN CORPUSCULAR HGB CONC 31.1 g/dl (32.0-36.5); MEAN CORPUSCULAR VOLUME 87.6 fl (80.0-96.0); MONO # 1.4 10^3/uL (0.0-0.8); MONO % 10.6 % (2.0-8.0); NEUTROPHILS # 9.7 10^3/uL (1.5-8.5); NEUTROPHILS % 75.1 % (36.0-66.0); PLATELET COUNT, AUTOMATED 244 10^3/uL (150-450); RED BLOOD COUNT 5.32 10^6/uL (4.30-6.10); WHITE BLOOD COUNT 12.9 10^3/uL (4.0-10.0)
[2022-12-05 19:26] LABS: BLOOD UREA NITROGEN 64 MG/DL (9-23); CARBON DIOXIDE LEVEL 28 MMOL/L (20-31); CHLORIDE LEVEL 105 MMOL/L (98-107); CHOLESTEROL LEVEL 186 MG/DL (<200); CHOLESTEROL RISK RATIO 4.65 (<5); CREATININE FOR GFR 1.24 MG/DL (0.70-1.30); GLOMERULAR FILTRATION RATE > 60.0 (>49); GLUCOSE, FASTING 79 MG/DL (74-106); LDL CHOLESTEROL 102.8 MG/DL (<100); SODIUM LEVEL 142 MMOL/L (136-145); THYROID STIMULATING HORMONE 10.286 uIU/ML (0.55-4.78); TRIGLYCERIDES LEVEL 216 MG/DL (<150)
== END ==
LOC: M SFHCCLAY 11:29
PROVIDERS: ATTEND Physician Assistant
DX: R79.89 Other specified abnormal findings of blood chemistry (principal); D72.829 Elevated white blood cell count, unspecified; Z13.220 Encounter for screening for lipoid disorders; E55.9 Vitamin D deficiency, unspecified; Z12.5 Encounter for screening for malignant neoplasm of prostate; Z79.899 Other long term (current) drug therapy
CPT/HCPCS: 80048; 80061; 82306; 84439; 84443; 85025; G0103

== ENCOUNTER → 2022-12-23 | Outpatient (CLI) | payer MEDICARE, OTHER | LOC: M RAD 11:04 | PROVIDERS: ATTEND Internal Medicine Pulmonary Disease | DX: J43.1 Panlobular emphysema (principal) ==

== ENCOUNTER → 2022-12-30 | Outpatient (CLI) | payer MEDICARE, OTHER ==
[2022-12-30 10:30] LABS: BASO # 0.2 10^3/uL (0.0-0.2); BASO % 1.5 % (0.0-1.0); EOS # 0.1 10^3/uL (0.0-0.5); EOS % 1.4 % (0.0-3.0); HEMATOCRIT 43.5 % (42.0-52.0); LYMPH # 1.6 10^3/uL (1.5-5.0); LYMPH % 15.4 % (24.0-44.0); MEAN CORPUSCULAR HEMOGLOBIN 27.5 pg (27.0-33.0); MEAN CORPUSCULAR HGB CONC 29.9 g/dl (32.0-36.5); MONO % 9.4 % (2.0-8.0); NEUTROPHILS # 7.2 10^3/uL (1.5-8.5); NEUTROPHILS % 69.6 % (36.0-66.0); PLATELET COUNT, AUTOMATED 221 10^3/uL (150-450); RED BLOOD COUNT 4.73 10^6/uL (4.30-6.10); WHITE BLOOD COUNT 10.3 10^3/uL (4.0-10.0)
[2022-12-30 10:57] LABS: ALKALINE PHOSPHATASE 128 U/L (46-116); ALT/SGPT 32 U/L (7.0-40); AST/SGOT 41 U/L (<34); BILIRUBIN,TOTAL 0.6 MG/DL (0.3-1.2); BLOOD UREA NITROGEN 49 MG/DL (9-23); CARBON DIOXIDE LEVEL 24 MMOL/L (20-31); CHLORIDE LEVEL 108 MMOL/L (98-107); CREATININE FOR GFR 1.27 MG/DL (0.70-1.30); GLOMERULAR FILTRATION RATE > 60.0 (>49); GLUCOSE, FASTING 72 MG/DL (74-106); POTASSIUM SERUM 5.4 MMOL/L (3.5-5.1); SODIUM LEVEL 143 MMOL/L (136-145); TOTAL PROTEIN 6.5 G/DL (5.7-8.2)
== END ==
LOC: M LAB 09:32
PROVIDERS: ATTEND Nurse Practitioner Family
DX: R41.82 Altered mental status, unspecified (principal)

== ENCOUNTER → 2023-01-06 | Outpatient (CLI) | payer MEDICARE, OTHER | LOC: M PLAIMG 10:50 | PROVIDERS: ATTEND Internal Medicine Pulmonary Disease | DX: R91.8 Other nonspecific abnormal finding of lung field (principal) ==

== ENCOUNTER → 2023-01-08 | Outpatient (CLI) | payer MEDICARE, OTHER | LOC: M LAB 10:28 | PROVIDERS: ATTEND Nurse Practitioner Family | DX: E87.5 Hyperkalemia (principal) ==

== ENCOUNTER → 2023-01-08 | Outpatient (REF) | payer MEDICARE, OTHER | LOC: M SFHCCLAY 09:13 | PROVIDERS: ATTEND Nurse Practitioner Family | DX: Z53.9 Procedure and treatment not carried out, unspecified reason (principal) ==

== ENCOUNTER → 2023-01-16 | Outpatient (REF) | payer MEDICARE, OTHER ==
[2023-01-16 18:46] LABS: FREE T4 1.65 NG/DL (0.89-1.76); THYROID STIMULATING HORMONE 3.88 uIU/ML (0.55-4.78)
== END ==
LOC: M SFHCCLAY 14:19
PROVIDERS: ATTEND Nurse Practitioner Family
DX: E03.9 Hypothyroidism, unspecified (principal)

== ENCOUNTER → 2023-03-17 | Outpatient (CLI) | payer MEDICARE, OTHER | LOC: M CARPUL 08:19 | PROVIDERS: ATTEND Nurse Practitioner Family | DX: I31.39 Other pericardial effusion (noninflammatory) (principal) ==

== ENCOUNTER 2023-04-29 10:49 | Inpatient (IN) | payer MEDICARE, OTHER ==
[~2023-04-29] VITALS: Ht 175.3 cm; Wt 55.6 kg
[2023-04-29] MEDS ORDERED: NS 1,000 ML IV SCH (11:40)
[2023-04-29 12:01] LABS: VENOUS BASE EXCESS -8.7 (-2.0-2.0); VENOUS HCO3 18.8 MMOL/L (23.0-27.0); VENOUS O2 SATURATION 38.6 % (60.0-80.0); VENOUS PARTIAL PRESSURE CO2 47.1 mmHg (38.0-50.0); VENOUS PARTIAL PRESSURE O2 30.4 mmHg (30.0-50.0); VENOUS PH 7.219 UNITS (7.330-7.430); VENOUS STANDARD HCO3 16.5 MMOL/L; VENOUS TOTAL CO2 20.2 MMOL/L (24.0-28.0)
[2023-04-29 12:05] LABS: BASO % 0.1 % (0.0-1.0); LYMPH # 0.7 10^3/uL (1.5-5.0); MEAN CORPUSCULAR HEMOGLOBIN 23.4 pg (27.0-33.0); MEAN CORPUSCULAR HGB CONC 27.8 g/dl (32.0-36.5); MEAN CORPUSCULAR VOLUME 84.3 fl (80.0-96.0); MONO % 12.3 % (2.0-8.0); NEUTROPHILS # 11.6 10^3/uL (1.5-8.5); NEUTROPHILS % 80.3 % (36.0-66.0); PLATELET COUNT, AUTOMATED 272 10^3/uL (150-450); RED BLOOD COUNT 4.27 10^6/uL (4.30-6.10); WHITE BLOOD COUNT 14.5 10^3/uL (4.0-10.0)
[2023-04-29 12:28] LABS: MONO # 1.8 10^3/uL (0.0-0.8)
[2023-04-29] MEDS ORDERED: PIPERACILLIN/TAZOBACTAM SOD 4.5 GM in D5W MINI-BAG PLUS 50 ML IV ONE (12:35)
[2023-04-29] MEDS ORDERED: NS IV ONE (12:35)
[2023-04-29 12:36] LABS: ETHYL ALCOHOL (ETHANOL) < 0.003 % (0.000-0.010)
[2023-04-29 12:37] LABS: C REACTIVE PROTEIN QUANTITATIV < 0.40 MG/DL (<1.0)
[2023-04-29 12:38] LABS: ALBUMIN 3.8 G/DL (3.2-5.2); ALKALINE PHOSPHATASE 110 U/L (46-116); ALT/SGPT 28 U/L (7.0-40); AST/SGOT 29 U/L (<34); BILIRUBIN,DIRECT 0.5 MG/DL (<0.4); BILIRUBIN,TOTAL 1.2 MG/DL (0.3-1.2); BLOOD UREA NITROGEN 64 MG/DL (9-23); CALCIUM LEVEL 9.5 MG/DL (8.3-10.6); CARBON DIOXIDE LEVEL 20 MMOL/L (20-31); CHLORIDE LEVEL 108 MMOL/L (98-107); CK-MB VALUE MASS 5.9 NG/ML (<3.6); CREATININE FOR GFR 1.37 MG/DL (0.70-1.30); GLUCOSE, FASTING 82 MG/DL (74-106); POTASSIUM SERUM 4.8 MMOL/L (3.5-5.1); SODIUM LEVEL 139 MMOL/L (136-145); TOTAL PROTEIN 6.7 G/DL (5.7-8.2)
[2023-04-29 12:42] LABS: CPK CREATINE PHOSPHOKINASE 80 U/L (46-171); MB/CK RELATIVE INDEX 7.37 (< OR =4)
[2023-04-29 13:29] LABS: OSMOLALITY SERUM 316 MOSM/KG (280-301)
[2023-04-29 13:42] LABS: INR 1.78; PROTHROMBIN TIME 20.1 SECONDS (12.5-14.5)
[2023-04-29 13:55] LABS: FREE T4 1.47 NG/DL (0.89-1.76); THYROID STIMULATING HORMONE 3.529 uIU/ML (0.55-4.78)
[2023-04-29] MEDS ORDERED: LACTULOSE 20GM/30ML SYRUP UDC PO ONE ×2 (14:15→15:05)
[2023-04-29] MEDS ORDERED: MED REC IN PROGRESS XX SCH (15:10)
[2023-04-29] MEDS ORDERED: LEVO50TA5 PO (15:21)
[2023-04-29] MEDS ORDERED: PRED10TA2 PO (15:21)
[2023-04-29 15:48] LABS: PROCALCITONIN 0.05 ng/ml
[2023-04-29] MEDS ORDERED: ELIQ2.5T PO (16:32)
[2023-04-29] MEDS ORDERED: FURO20TA2 PO (16:35)
[2023-04-29] MEDS ORDERED: METO1TAB7 PO (16:39)
[2023-04-29] MEDS ORDERED: LEVO1TAB39 PO (16:43)
[2023-04-29 16:54] LABS: PERCENT SATURATION 5.4 % (19.7-50.0)
[2023-04-29 16:56] LABS: FERRITIN 13.2 NG/ML (10.5-307.3); FOLATE 16.95 NG/ML (>5.4)
[2023-04-29] MEDS ORDERED: ALBUTEROL 90 MCG/ACT 8GM HFA INHALER INH PRN (17:00)
[2023-04-29 17:22] VITALS: BP 110/61; TEMP 96.6; O2SAT 97
[2023-04-29] MEDS ORDERED: NS 500 ML IV ONE (19:00)
[2023-04-29 19:55] VITALS: BP 84/60; TEMP 97; O2SAT 93
[2023-04-29] MEDS: APIXABAN 2.5 MG TAB (ELIQUIS) PO SCH (20:01)
[2023-04-29] MEDS: IPRATROPIUM 0.06% NASAL SPRAY 15 ML (ATROVENT) SCH (21:25)
[2023-04-29 21:27] VITALS: BP 87/65; O2SAT 95
[2023-04-29 23:33] VITALS: BP 96/65; TEMP 97.4; O2SAT 93
[2023-04-30 04:00] VITALS: BP 85/60; TEMP 97; O2SAT 100
[2023-04-30 05:37] LABS: HEMATOCRIT 30.3 % (42.0-52.0); HEMOGLOBIN 8.7 g/dl (13.5-17.5); MEAN CORPUSCULAR HEMOGLOBIN 23.6 pg (27.0-33.0); MEAN CORPUSCULAR HGB CONC 28.7 g/dl (32.0-36.5); MEAN CORPUSCULAR VOLUME 82.1 fl (80.0-96.0); RED BLOOD COUNT 3.69 10^6/uL (4.30-6.10)
[2023-04-30 05:50] LABS: PLATELET COUNT, AUTOMATED 161 10^3/uL (150-450)
[2023-04-30] MEDS ORDERED: LEVOTHYROXINE 50MCG TABLET (0.05MG) PO SCH (06:00)
[2023-04-30 06:09] LABS: BILIRUBIN,TOTAL 0.9 MG/DL (0.3-1.2); CALCIUM LEVEL 9.3 MG/DL (8.3-10.6); CREATININE FOR GFR 1.55 MG/DL (0.70-1.30); GLOMERULAR FILTRATION RATE 47.7 (>49); POTASSIUM SERUM 3.9 MMOL/L (3.5-5.1); PROCALCITONIN 0.08 ng/ml; TOTAL PROTEIN 5.3 G/DL (5.7-8.2)
[2023-04-30] MEDS ORDERED: LR 1,000 ML IV ONE (06:30)
[2023-04-30 07:19] VITALS: BP 129/66; TEMP 97.7; O2SAT 100
[2023-04-30 08:41] VITALS: BP 129/66
[2023-04-30] MEDS: APIXABAN 2.5 MG TAB (ELIQUIS) PO SCH (08:41)
[2023-04-30] MEDS: IPRATROPIUM 0.06% NASAL SPRAY 15 ML (ATROVENT) SCH (08:42)
[2023-04-30] MEDS ORDERED: FUROSEMIDE 20 MG TAB PO SCH (09:00)
[2023-04-30] MEDS ORDERED: METOPROLOL SUCC (TopROL XL) 50MG **XL** TAB PO SCH (09:00)
[2023-04-30] MEDS ORDERED: LACTULOSE 20GM/30ML SYRUP UDC PO SCH (09:00)
[2023-04-30 10:27] LABS: CALCIUM LEVEL 9.3 MG/DL (8.3-10.6); CREATININE FOR GFR 1.5 MG/DL (0.70-1.30); GLOMERULAR FILTRATION RATE 49.5 (>49)
[2023-04-30 11:21] VITALS: BP 89/58; TEMP 97.6; O2SAT 98
[2023-04-30] MEDS ORDERED: MIDODRINE 5 MG TAB PO SCH (12:00)
[2023-04-30] MEDS ORDERED: MIDO5TA PO (12:51)
[2023-04-30] MEDS ORDERED: BLOOKIT XX (12:54)
[2023-04-30] MEDS ORDERED: LACT20EL PO (12:54)
[2023-04-30 13:09] VITALS: BP 142/62
== END 2023-04-30 14:24 | disposition home health service (06) | DRG 442 ==
LOC: M ED 10:49 → M ED INP 14:47 → ENRESERV 15:04 → M PCU 17:07
PROVIDERS: ADMIT Internal Medicine; ATTEND Internal Medicine
DX: K76.82 Hepatic encephalopathy (principal); J96.11 Chronic respiratory failure with hypoxia; E87.20 Acidosis, unspecified; I48.11 Longstanding persistent atrial fibrillation; N17.9 Acute kidney failure, unspecified; I50.22 Chronic systolic (congestive) heart failure; D50.9 Iron deficiency anemia, unspecified; K74.69 Other cirrhosis of liver; K59.00 Constipation, unspecified; J44.9 Chronic obstructive pulmonary disease, unspecified; I95.89 Other hypotension; Z99.81 Dependence on supplemental oxygen; Z79.01 Long term (current) use of anticoagulants; Z79.890 Hormone replacement therapy; Z79.52 Long term (current) use of systemic steroids; Z79.899 Other long term (current) drug therapy; I36.0 Nonrheumatic tricuspid (valve) stenosis

== ENCOUNTER 2023-05-05 15:04 | Inpatient (IN) | payer MEDICARE, OTHER ==
[~2023-05-05] VITALS: Ht 175.3 cm; Wt 60.9 kg
[~2023-05-05 15:04] MED LIST changes: +BLOOKIT XX; +LACT20EL PO; +LEVO1TAB39 PO; +LEVO50TA5 PO; +MIDO5TA PO; +PRED10TA2 PO
[2023-05-05] MEDS ORDERED: NS 1,000 ML IV SCH ×2 (15:45→22:35)
[2023-05-05 17:21] LABS: BASO % 0.2 % (0.0-1.0); EOS % 0.2 % (0.0-3.0); HEMATOCRIT 33.3 % (42.0-52.0); HEMOGLOBIN 9.5 g/dl (13.5-17.5); LYMPH # 1.4 10^3/uL (1.5-5.0); LYMPH % 8.5 % (24.0-44.0); MEAN CORPUSCULAR HEMOGLOBIN 23.7 pg (27.0-33.0); MEAN CORPUSCULAR HGB CONC 28.5 g/dl (32.0-36.5); MONO # 1.3 10^3/uL (0.0-0.8); MONO % 8.2 % (2.0-8.0); NEUTROPHILS # 12.6 10^3/uL (1.5-8.5); NEUTROPHILS % 78.4 % (36.0-66.0); PLATELET COUNT, AUTOMATED 168 10^3/uL (150-450); RED BLOOD COUNT 4.01 10^6/uL (4.30-6.10)
[2023-05-05 17:26] LABS: INR 2.42; PROTHROMBIN TIME 25.5 SECONDS (12.5-14.5)
[2023-05-05 17:27] LABS: PARTIAL THROMBOPLASTIN TIME 33.8 SECONDS (24.8-34.2)
[2023-05-05 17:34] LABS: CK-MB VALUE MASS 7.6 NG/ML (<3.6)
[2023-05-05 17:37] LABS: ALBUMIN 3.3 G/DL (3.2-5.2); BILIRUBIN,DIRECT 0.9 MG/DL (<0.4); BILIRUBIN,TOTAL 1.9 MG/DL (0.3-1.2); CK-MB VALUE MASS 7.5 NG/ML (<3.6); CREATININE FOR GFR 1.54 MG/DL (0.70-1.30); GLOMERULAR FILTRATION RATE 48.1 (>49); MB/CK RELATIVE INDEX 4.07 (< OR =4); POTASSIUM SERUM 4.9 MMOL/L (3.5-5.1); THYROID STIMULATING HORMONE 8.2 uIU/ML (0.55-4.78); THYROXINE (T4) 7.7 UG/DL (4.5-10.9); TOTAL PROTEIN 5.9 G/DL (5.7-8.2)
[2023-05-05 17:37] LABS: MB/CK RELATIVE INDEX 4.22 (< OR =4)
[2023-05-05] MEDS ORDERED: NS 1,910 ML in IV 1 EA IV ONE (17:40)
[2023-05-05] MEDS ORDERED: cefTRIAXone SOD 2 GM in D5W MINI-BAG PLUS 50 ML IV ONE (17:40)
[2023-05-05] MEDS ORDERED: DEXTROSE 50% 50ML SYRINGE IV STA ×2 (19:38→20:35)
[2023-05-05] MEDS ORDERED: D5W/0.9% SODIUM CHLORIDE 1,000 ML IV SCH (20:35)
[2023-05-05] MEDS ORDERED: APIXABAN 2.5 MG TAB (ELIQUIS) PO SCH (21:00)
[2023-05-05 21:37] LABS: FREE T4 1.49 NG/DL (0.89-1.76)
[2023-05-05] MEDS ORDERED: NS 1,000 ML IV ONE ×2 (21:40→23:05)
[2023-05-05] MEDS ORDERED: ALBUTEROL SULFATE 2.5MG/0.5ML INH NEB SOLN NEB ONE (21:40)
[2023-05-05 21:46] LABS: ABG BASE EXCESS -14.5 (-2.0-2.0); ABG HCO3 10.8 MMOL/L (22.0-26.0); ABG O2 SATURATION 95.9 % (95.0-99.0); ABG PARTIAL PRESSURE CO2 23.9 mmHg (35.0-45.0); ABG PARTIAL PRESSURE O2 97.3 mmHg (75.0-100.0); ABG STANDARD HCO3 13.1 MMOL/L. (22.0-26.0); ABG TOTAL CO2 11.5 MMOL/L (23.0-31.0); ABG pH (ARTERIAL) 7.273 UNITS (7.350-7.450)
[2023-05-05] MEDS ORDERED: SODIUM BICARBONATE 8.4% INJ 50ML SYRINGE IV STA (21:50)
[2023-05-05] MEDS ORDERED: HYDROCORTISONE 100MG/2ML VIAL IV ONE (22:00)
[2023-05-05] MEDS ORDERED: MIDO5TA PO (22:25)
[2023-05-05] MEDS ORDERED: VITMTA PO (22:25)
[2023-05-05] MEDS ORDERED: LEXA1TAB PO (22:25)
[2023-05-05] MEDS ORDERED: HOME MED LIST COMPLETE! XX SCH (22:30)
[2023-05-05] MEDS ORDERED: ONDANSETRON 4MG 2ML VIAL IV PRN (22:35)
[2023-05-05] MEDS ORDERED: ALBUTEROL SULFATE 2.5MG/0.5ML INH NEB SOLN NEB PRN (22:35)
[2023-05-05] MEDS ORDERED: HYDROMORPHONE HCL 0.5 MG/ 0.5 ML SYRINGE IV PRN (22:35)
[2023-05-05 23:06] LABS: CREATININE FOR GFR 1.51 MG/DL (0.70-1.30); GLOMERULAR FILTRATION RATE 49.2 (>49)
[2023-05-06] MEDS ORDERED: SODIUM BICARBONATE 150 MEQ in D5W 1,000 ML IV SCH ×2
[2023-05-06] MEDS ORDERED: DEXTROSE 50% 50ML SYRINGE IV STA (00:47)
[2023-05-06] MEDS ORDERED: IPRATROPIUM 0.5MG/ALBUTEROL 2.5MG INH SOL UD 3ML (DUONEB) NEB SCH (02:00)
[2023-05-06 03:32] VITALS: BP 114/64; TEMP 93.9; O2SAT 94
[2023-05-06 03:41] VITALS: BP 114/69; O2SAT 87
[2023-05-06 04:00] VITALS: BP 113/67; TEMP 93.6; O2SAT 91
[2023-05-06 05:00] VITALS: BP 110/74; TEMP 94.1; O2SAT 87
[2023-05-06] MEDS ORDERED: PHENYLEPHRINE 10MG/ML 1ML VIAL As Ordered ONE (05:27)
[2023-05-06] MEDS ORDERED: EPINEPHrine INJ 1 MG/ML 1ML AMP As Ordered ONE (05:45)
[2023-05-06] MEDS ORDERED: CALCIUM CHLORIDE 10% 1 GM/10 ML SYR ONE (05:57)
[2023-05-06] MEDS ORDERED: ATROPINE SULF 1MG/10ML SYRINGE ONE (05:57)
[2023-05-06] MEDS ORDERED: SODIUM BICARBONATE 8.4% INJ 50ML SYRINGE ONE (05:57)
[2023-05-06] MEDS ORDERED: EPINEPHrine 1MG/10ML SYRINGE 1.5IN ONE (05:57)
[2023-05-06] MEDS ORDERED: LEVOTHYROXINE 50MCG TABLET (0.05MG) PO SCH (06:00)
[2023-05-06] MEDS ORDERED: MIDODRINE 5 MG TAB PO SCH (08:00)
[2023-05-06] MEDS ORDERED: ESCITALOPRAM OXALATE 10 MG TAB (LEXAPRO) PO SCH (09:00)
[2023-05-06] MEDS ORDERED: PANTOPRAZOLE 40MG VIAL IV SCH (09:00)
== END 2023-05-06 05:58 | disposition expired | DRG 641 ==
LOC: M ED 15:04 → M ED INP 22:33 → ENRESERV 05-06 02:23 → M ICU 05-06 03:21
PROVIDERS: ADMIT Internal Medicine; ATTEND Internal Medicine
PROC: 0BH17EZ Insertion of Endotracheal Airway into Trachea, Via Natural or Artificial Opening (ICD-10-PCS; principal; 2023-05-06)
PROC: 05HM33Z Insertion of Infusion Device into Right Internal Jugular Vein, Percutaneous Approach (ICD-10-PCS; 2023-05-06)
DX: E87.29 Other acidosis (principal); N17.9 Acute kidney failure, unspecified; J96.11 Chronic respiratory failure with hypoxia; E16.2 Hypoglycemia, unspecified; K74.60 Unspecified cirrhosis of liver; J44.9 Chronic obstructive pulmonary disease, unspecified; D64.9 Anemia, unspecified; I48.91 Unspecified atrial fibrillation; I46.9 Cardiac arrest, cause unspecified; I49.01 Ventricular fibrillation; N18.9 Chronic kidney disease, unspecified; I95.9 Hypotension, unspecified; Z79.01 Long term (current) use of anticoagulants; Z87.891 Personal history of nicotine dependence; Z79.899 Other long term (current) drug therapy; Z79.890 Hormone replacement therapy